=== PATIENT | female | born 1945 | race Caucasian/White ===

== ENCOUNTER → 2016-08-10 | Outpatient (CLI) | payer OTHER ==
[~2016-08-10] MED LIST: AGG PO; ALPH200C2 PEG; ASPI325T39 PO; ASPI81TA21 PO; BUPR200T2 PO; CARV12.5 PO; CARV25TA PO; COEN100C3 PO; CRS20 PO; FERR18TA2 PO; KRIL1CAP18 PO; LISI-725 PO; METH-736 PO; MULT-506 PO; MULT1TAB56 PO; POTA20TA16 PO; SIMV40TA2 PO; SITA100T3 PO; SITA1TAB27 PO; SULF800T23 PO; [UNRECOGNIZED DRUG - OTHER] PO
[2016-08-10 18:35] LABS: URINE APPEARANCE CLEAR (CLEAR); URINE BILIRUBIN NEG (NEG); URINE COLOR YELLOW; URINE NITRITE NEG (NEG); URINE PROTIEN/CREAT RATIO 0.2 (0-0.2); URINE SPECIFIC GRAVITY 1.012 (1.000-1.030); URINE TOTAL PROTEIN 5.1 mg/dl (0-11.9); UROBILINOGEN NEG (NEG); ZZUR CULT IF INDIC CLEAN CATCH NO
[2016-08-10 18:37] LABS: MANUAL MICROSCOPIC REQUIRED? NO; REVIEW REQ? NO
== END | disposition home or self-care (01) ==
LOC: C.LAB1850 15:50
PROVIDERS: ATTEND Internal Medicine Nephrology
DX: R80.9 Proteinuria, unspecified (principal)

== ENCOUNTER → 2016-08-15 | Outpatient (CLI) | payer OTHER ==
--- NOTE | 2016-08-15 08:44 | DIAGNOSTIC IMAGING REPORT ---
RENAL ULTRASOUND CLINICAL HISTORY: Proteinuria. COMPARISON STUDY: CT of the abdomen January 28, 2010. TECHNIQUE: Sonography of the kidneys and the urinary bladder was performed. FINDINGS: This exam is mildly compromised by suboptimal penetration. There is no hydronephrosis. The right kidney measures 9.8 x 6.1 x 5.4 cm and the left measures 10.3 x 5 x 5.9 cm. Renal echogenicity is normal. No renal masses identified by sonography. Both ureteral jets were identified. IMPRESSION: 1. No hydronephrosis. 2. Slight renal cortical thinning. Otherwise, unremarkable sonographic appearance of the kidneys. Electronically signed by: Boyd Godinez M.D. 08/15/2016 8:43 AM Dictated Date/Time: 08/15/2016 8:42 AM
== END | disposition home or self-care (01) ==
LOC: C.ULTR 07:57
PROVIDERS: ATTEND Internal Medicine Nephrology
DX: N18.9 Chronic kidney disease, unspecified (principal); I10 Essential (primary) hypertension; R80.9 Proteinuria, unspecified

== ENCOUNTER 2017-01-12 10:36 | Emergency (ER) | payer OTHER ==
[~2017-01-12] VITALS: Ht 157.5 cm; Wt 100.7 kg
[~2017-01-12 10:36] MED LIST changes: -ALPH200C2 PEG; -ASPI325T39 PO; -CARV12.5 PO; -COEN100C3 PO; -FERR18TA2 PO; -KRIL1CAP18 PO; -METH-736 PO; -MULT1TAB56 PO; -SIMV40TA2 PO; -SITA100T3 PO; -SULF800T23 PO; -[UNRECOGNIZED DRUG - OTHER] PO
[2017-01-12 10:41] VITALS: Ht 157.5 cm; Wt 100.7 kg
[2017-01-12 11:05] VITALS: TEMP 37.7
[2017-01-12] MEDS ORDERED: ASPI325T39 PO (11:23)
[2017-01-12] MEDS ORDERED: LISI-725 PO (11:23)
[2017-01-12] MEDS ORDERED: CARV12.5 PO (11:23)
[2017-01-12] MEDS ORDERED: SITA100T3 PO (11:23)
[2017-01-12] MEDS ORDERED: AGG PO (11:23)
[2017-01-12] MEDS ORDERED: BUPR200T2 PO (11:23)
[2017-01-12] MEDS ORDERED: KRIL1CAP18 PO (11:23)
[2017-01-12] MEDS ORDERED: MULT1TAB56 PO (11:23)
[2017-01-12] MEDS ORDERED: COEN100C3 PO (11:23)
[2017-01-12] MEDS ORDERED: FERR18TA2 PO (11:23)
[2017-01-12] MEDS ORDERED: ALPH200C2 PEG (11:23)
[2017-01-12] MEDS ORDERED: METH-736 PO (11:23)
[2017-01-12] MEDS ORDERED: [UNRECOGNIZED DRUG - OTHER] PO (11:23)
[2017-01-12] MEDS ORDERED: SIMV40TA2 PO (11:23)
--- NOTE | 2017-01-12 11:24 | EMERGENCY ROOM VISIT NOTE ---
History Report prepared by Jaden: Martina Ramírez Under the Supervision of: Dr. Rivas Cheung M.D. First contact with patient: 11:13 Chief Complaint: FEVER Stated Complaint: LEGS ARE WEAK, CAN'T EAT/DRINK, DIARRHEA History of Present Illness The patient is a 71 year old female who presents to the Emergency Room with complaints of a persistent fever for the past several days. The patient states that over the past several days she has noticed urinary frequency, burning with urination and a foul smell to her urine. She states that she has additionally had a decrease in appetite, weakness, and chills for the past two days. The patient states that she had a urinary tract infection several years ago. She additionally reports increased sneezing and a runny nose. The patient denies any cough. She states that she was confused last evening, but denies any current confusion. The patient denies any sore throat. She states that she previously had diarrhea. The patient reports recent urinary incontinence. She denies wearing oxygen at home and denies ever being a smoker. The patient denies any history of lung problems, but reports a history of diabetes. Source of History: patient Onset: several days Position: other (global) Quality: other (fever) Timing: other (persistent) Associated Symptoms: + chills, + diarrhea, + urinary symptoms, + weakness, No sorethroat, No cough Note: Associated Symptoms: decrease in appetite Review of Systems All systems have been listed, reviewed, and are negative other than those previously mentioned. Please see Additional Medical History Sheet. Past Medical & Surgical Medical Problems: (1) Benign hypertension (2) CVA (3) Diabetes mellitus type 2 (4) Diastolic dysfunction (5) Heart disease (6) Kidney stone (7) Morbid obesity (8) Obstructive sleep apnea syndrome Surgical Problems: (1) Hx of cholecystectomy Family History Cancer Diabetes mellitus Heart disease Hypertension Social History Smoking Status: Never Smoker Smokeless Tobacco Use: No Alcohol Use: none Marital Status: Housing Status: lives with significant other Occupation Status: retired Current/Historical Medications Scheduled Alpha-Lipoic Acid (Thioctic Ac (Alpha Lipoic Acid), 200 MG PEG DAILY Aspirin (Aspirin Ec), 325 MG PO BID Bupropion Hcl (Wellbutrin Sr), 200 MG PO BID Carvedilol (Coreg), 12.5 MG PO BID Coenzyme Q10 (Ubidecarenone) (Co Q-10), 100 MG PO DAILY Dipyridamole/Aspirin (Aggrenox 25-200 mg), 1 CAP PO BID Ferrous Fumarate (Iron), 65 MG PO DAILY Krill Oil (Megared Dubberly-3 Krill Oil 500 mg), 325 MG PO DAILY Lisinopril (Zestril), 20 MG PO BID Methylsulfonylmethane (Msm), 1,000 MG PO DAILY Multiple Vitamins W/ Minerals (One Daily Adults 50+), 1 TAB PO DAILY Simvastatin (Zocor), 40 MG PO QPM Sitagliptin Phosphate (Januvia), 100 MG PO DAILY Sulfa/Trimethoprim (Bactrim Ds 800MG/160MG), 1 TAB PO BID [Circulation Booster], 1 DOSE PO TID Allergies Coded Allergies: No Known Allergies (Verified , 01/12/17) Physical Exam Vital Signs Date Time Temp Pulse Resp B/P (MAP) Pulse Ox O2 Delivery O2 Flow Rate FiO2 01/12/17 13:37 95 24 114/50 92 Room Air 01/12/17 12:45 95 19 114/49 93 Room Air 01/12/17 11:05 37.7 98 20 126/59 92 Room Air 01/12/17 11:02 92 01/12/17 10:41 39.2 105 24 146/74 89 Room Air Physical Exam GENERAL: Patient awake, alert, oriented x 3. Patient follows commands. Patient does not appear toxic. Patient is adequately hydrated and well- nourished. SKIN: No erythema, pallor, cyanosis or rash HEENT: Normal head, pupils equal, reactive to light and accommodation. Ears normal. Oral cavity and posterior pharynx appear normal. Neck: Without adenopathy, no neck vein distention. LUNGS: Clear to auscultation. No wheezes, no rales, no rhonchi. HEART: No murmurs. No gallops. No rubs ABDOMEN: Obese, right upper quadrant cholecystectomy scar. No masses, no rebound, no hepatomegaly or splenomegaly. EXTREMITIES: No signs of trauma or infection. NEUROLOGIC: Cranial nerves II-XII within normal limits. No gross motor sensory function deficits. Medical Decision & Procedures ER Provider Diagnostic Interpretation: X ray results are stated below per my interpretation and the radiologist's interpretation. TWO VIEW CHEST CLINICAL HISTORY: Fever.. FINDINGS: PA and lateral chest radiographs are compared to study dated 09/22/2011. The heart is top normal for projection. There is atherosclerotic calcification of the thoracic aorta. There is chronic elevation of the right hemidiaphragm with bibasilar atelectasis. No airspace consolidation or pleural effusion is identified. There is no pneumothorax. The skeletal structures are osteopenic. There are healed left-sided rib fractures. IMPRESSION: No acute cardiopulmonary abnormality. Electronically signed by: Nikolas Dobson M.D. 01/12/2017 12:31 PM Dictated Date/Time: 01/12/2017 12:30 PM Laboratory Results 01/12/17 12:00 Red Blood Count 3.96, Mean Corpuscular Volume 88.1, Mean Corpuscular Hemoglobin 30.6, Mean Corpuscular Hemoglobin Concent 34.7, Mean Platelet Volume 9.1, Neutrophils (%) (Auto) 83.7, Lymphocytes (%) (Auto) 7.7, Monocytes (%) (Auto) 8.3, Eosinophils (%) (Auto) 0.0, Basophils (%) (Auto) 0.1, Neutrophils # (Auto) 8.39, Lymphocytes # (Auto) 0.77, Monocytes # (Auto) 0.83, Eosinophils # (Auto) 0.00, Basophils # (Auto) 0.01 01/12/17 12:00 Test 01/12/17 11:40 01/12/17 12:00 01/12/17 12:05 Urine Color YELLOW Urine Appearance TURBID (CLEAR) Urine pH 5.0 (4.5-7.5) Urine Specific [place] 1.024 (1.000-1.030) Urine Protein 1+ (NEG) Urine Glucose (UA) 3+ (NEG) Urine Ketones NEG (NEG) Urine Occult Blood 2+ (NEG) Urine Nitrite POS (NEG) Urine Bilirubin NEG (NEG) Urine Urobilinogen NEG (NEG) Urine Leukocyte Esterase SMALL (NEG) Urine WBC (Auto) >30 /hpf (0-5) Urine RBC (Auto) 0-4 /hpf (0-4) Urine Hyaline Casts (Auto) 5-10 /lpf (0-5) Urine Epithelial Cells (Auto) >30 /lpf (0-5) Urine Bacteria (Auto) 2+ (NEG) White Blood Count 10.02 K/uL (4.8-10.8) Red Blood Count 3.96 M/uL (4.2-5.4) Hemoglobin 12.1 g/dL (12.0-16.0) Hematocrit 34.9 % (37-47) Mean Corpuscular Volume 88.1 fL (80-100) Mean Corpuscular Hemoglobin 30.6 pg (25-34) Mean Corpuscular Hemoglobin Concent 34.7 g/dl (32-36) Platelet Count 170 K/uL (130-400) Mean Platelet Volume 9.1 fL (7.4-10.4) Neutrophils (%) (Auto) 83.7 % Lymphocytes (%) (Auto) 7.7 % Monocytes (%) (Auto) 8.3 % Eosinophils (%) (Auto) 0.0 % Basophils (%) (Auto) 0.1 % Neutrophils # (Auto) 8.39 K/uL (1.4-6.5) Lymphocytes # (Auto) 0.77 K/uL (1.2-3.4) Monocytes # (Auto) 0.83 K/uL (0.11-0.59) Eosinophils # (Auto) 0.00 K/uL (0-0.5) Basophils # (Auto) 0.01 K/uL (0-0.2) RDW Standard Deviation 43.0 fL (36.4-46.3) RDW Coefficient of Variation 13.3 % (11.5-14.5) Immature Granulocyte % (Auto) 0.2 % Immature Granulocyte # (Auto) 0.02 K/uL (0.00-0.02) Anion Gap 9.0 mmol/L (3-11) Est Creatinine Clear Calc Drug Dose 38.3 ml/min Estimated GFR () 39.5 Estimated GFR (Non- 34.1 BUN/Creatinine Ratio 19.1 (10-20) Calcium Level 8.7 mg/dl (8.5-10.1) Total Bilirubin 0.7 mg/dl (0.2-1) Aspartate Amino Transf (AST/SGOT) 17 U/L (15-37) Alanine Aminotransferase (ALT/SGPT) 19 U/L (12-78) Alkaline Phosphatase 71 U/L (45-117) Troponin I < 0.015 ng/ml (0-0.045) Total Protein 6.6 gm/dl (6.4-8.2) Albumin 3.0 gm/dl (3.4-5.0) Globulin 3.6 gm/dl (2.5-4.0) Albumin/Globulin Ratio 0.8 (0.9-2) Beta-Hydroxybutyric Acid 2.41 mg/dL (0.2-2.81) Lactic Acid Level 1.0 mmol/L (0.4-2.0) Laboratory results as stated above per my review. Medications Administered Medications (Trade) Dose Ordered Sig/Citlali Route Start Time Stop Time Status Last Admin Dose Admin Trimethoprim/ Sulfamethoxazole (Septra Ds 800/ 160MG Tab) 1 tab NOW STAT PO 01/12/17 12:58 01/12/17 13:00 DC 01/12/17 13:14 1 TAB ECG Indication: weakness, other (fever) Rate (beats per minute): 98 Rhythm: normal sinus Findings: no acute ischemic change, no ectopy, other (LVH) ED Course 1113: Past medical records reviewed. The patient was evaluated in room C6. A complete history and physical examination was performed. 1258: Ordered Trimethoprim/Sulfamethoxazole 1 tab PO. 1300: I reevaluated the patient and she is resting comfortably. Her pulse oximetry is around 89-90%. I discussed the exam findings with her and I discussed the treatment plan. She verbalized complete understanding and agreement. She is ready for discharge. Medical Decision Nurses notes reviewed. Medical history sheet reviewed. Differential diagnosis includes but is not limited to: upper respiratory infection, urinary tract infection, sepsis, pyelonephritis. Multiple labs and urinalysis were obtained. Chest x-ray was also reviewed. Please see above results. The patient has a urinary tract infection but no evidence of sepsis or true pyelonephritis. The patient was started on Bactrim here. The patient's pulse oximetry readings were in the very low 90s or upper 80s but she does not feel short of breath. She has no clinical findings to suggest pneumonia. The patient was encouraged to follow-up with her family physician in 10-14 days to have her urinalysis repeated and another evaluation of her lungs. Medication Reconcilliation Current Medication List: was personally reviewed by me Impression Primary Impression: Urinary tract infection Scribe Attestation The scribe's documentation has been prepared under my direction and personally reviewed by me in its entirety. I confirm that the note above accurately reflects all work, treatment, procedures, and medical decision making performed by me. Departure Information Dispostion Home / Self-Care Prescriptions Sulfa/Trimethoprim (Bactrim Ds 800MG/160MG) Tab 1 TAB PO BID, #19 TAB Prov: Rivas Cheung M.D. 01/12/17 Referrals Bozena Lai D.O. (PCP) Forms HOME CARE DOCUMENTATION FORM, IMPORTANT VISIT INFORMATION Patient Instructions My [facility] Additional Instructions One Bactrim twice a day until the prescription has been completed. Drink extra fluids. Follow-up with your family physician within the next 10-14 days. Return here sooner if you become short of breath or have persistent fever.
[2017-01-12 11:53] LABS: URINE APPEARANCE TURBID (CLEAR); URINE BILIRUBIN NEG (NEG); URINE COLOR YELLOW; URINE EPITHELIAL CELL AUTO >30 /lpf (0-5); URINE NITRITE POS (NEG); URINE SPECIFIC GRAVITY 1.024 (1.000-1.030); UROBILINOGEN NEG (NEG); ZZURINE CULT IF INDIC CATH YES
[2017-01-12 11:54] LABS: MANUAL MICROSCOPIC REQUIRED? NO; REVIEW REQ? NO
[2017-01-12 12:17] LABS: BASO % 0.1 %; BASO ABS # 0.01 K/uL (0-0.2); COMPLETE YES; HEMATOCRIT 34.9 % (37-47); IG% 0.2 %; LYMPH % 7.7 %; LYMPH ABS # 0.77 K/uL (1.2-3.4); MEAN CELL VOLUME 88.1 fL (80-100); MEAN CORPUSCULAR HEMOGLOBIN 30.6 pg (25-34); MEAN CORPUSCULAR HGB CONC 34.7 g/dl (32-36); MEAN PLATELET VOLUME 9.1 fL (7.4-10.4); MONO % 8.3 %; NEUT % 83.7 %; PLATELET COUNT 170 K/uL (130-400); RED BLOOD COUNT 3.96 M/uL (4.2-5.4); WHITE BLOOD COUNT 10.02 K/uL (4.8-10.8)
--- NOTE | 2017-01-12 12:33 | DIAGNOSTIC IMAGING REPORT ---
TWO VIEW CHEST CLINICAL HISTORY: Fever.. FINDINGS: PA and lateral chest radiographs are compared to study dated 09/22/2011. The heart is top normal for projection. There is atherosclerotic calcification of the thoracic aorta. There is chronic elevation of the right hemidiaphragm with bibasilar atelectasis. No airspace consolidation or pleural effusion is identified. There is no pneumothorax. The skeletal structures are osteopenic. There are healed left-sided rib fractures. IMPRESSION: No acute cardiopulmonary abnormality. Electronically signed by: Nikolas Dobson M.D. 01/12/2017 12:31 PM Dictated Date/Time: 01/12/2017 12:30 PM
[2017-01-12 12:37] LABS: ALT/SGPT 19 U/L (12-78); AST/SGOT 17 U/L (15-37); BLOOD UREA NITROGEN 29 mg/dl (7-18); BUN/CREATININE RATIO 19.1 (10-20); CALCIUM 8.7 mg/dl (8.5-10.1); CARBON DIOXIDE 25 mmol/L (21-32); CHLORIDE 93 mmol/L (98-107); CREATININE 1.54 mg/dl (0.60-1.20); GLUCOSE 330 mg/dl (70-99); SODIUM 127 mmol/L (136-145)
[2017-01-12 12:51] LABS: ALB/GLOB RATIO 0.8 (0.9-2); ALKALINE PHOSPHATASE 71 U/L (45-117)
[2017-01-12 12:58] LABS: BETA-HYDROXYBUTYRATE 2.41 mg/dL (0.2-2.81)
[2017-01-12] MEDS ORDERED: SULFAMETHOXAZOLE/TRIMETHOPRIM DS 800/160MG TAB PO STA (12:58)
[2017-01-12] MEDS ORDERED: SULF800T23 PO (13:09)
[2017-01-12 13:37] VITALS: BP 114/50; PULSE 95; O2SAT 92
== END 2017-01-12 13:47 | disposition home or self-care (01) ==
LOC: C.EDB 10:38 → C.EDC 13:47
DX: N39.0 Urinary tract infection, site not specified (principal); R50.9 Fever, unspecified; R19.7 Diarrhea, unspecified; R53.1 Weakness; J98.11 Atelectasis; I10 Essential (primary) hypertension; E11.9 Type 2 diabetes mellitus without complications; G47.33 Obstructive sleep apnea (adult) (pediatric)

== ENCOUNTER 2021-10-15 06:37 | Inpatient (IN) ==
[2021-10-15] MEDS ORDERED: fentaNYL citrate 100 MCG/2 ML VIAL IV STA (06:45)
--- NOTE | 2021-10-15 06:53 | Emergency Department Note ---
Impression & Plan Fall, Closed trimalleolar fracture of ankle, Closed fracture dislocation of right ankle ED Provider Note Provider: He Ken MD DATE OF SERVICE: 10/15/2021 CHIEF COMPLAINT: Fall, ankle pain HISTORY OF PRESENT ILLNESS: Patient is a 76-year-old female history of CVA, hypertension, and type 2 diabetes presenting here today after a fall last night. Patient states is getting up to use the bathroom around midnight when she slipped and tripped on one of her dogs toys on the floor and fell to the ground. Denies striking her head or loss of consciousness. Denies any headache, dizziness, or visual change. Denies any neck pain. Denies any chest pain or shortness of breath. Denies any abdominal pain. Denies injury to the upper extremities or left lower extremity but states she tripped and landed and hurt her right ankle. Was unable to get up for this The floor till her found her around 5-5 30 this morning. Patient was unable to ambulate due to pain of the right ankle which is deformed per EMS. She has intact sensation and good pulse in the right foot by the report. Patient denies a history of surgery here. She denies significant pain at rest but with any movement or touch she has pain of the right ankle. Denies right knee pain. Endorses aspirin use REVIEW OF SYSTEMS: A total of 10 review of systems was obtained and negative except as stated above in the HPI. PAST MEDICAL HISTORY: As noted above MEDICATIONS: Reviewed home medication SOCIAL HISTORY: Retired, lives at home with PHYSICAL EXAM: GENERAL: alert and oriented in no acute distress on stretcher Head: normocephalic and atraumatic EYES: No injection, discharge or icterus. PERRL NECK: Trachea midline. Supple without midline posterior neck tenderness. ENT: Mucous membranes pink and moist. LUNGS: Airway patent. No retractions. Breath sounds clear with good air entry bilaterally. HEART: Regular rate and rhythm. No chest wall tenderness ABDOMEN: Soft and non-tender, without guarding or rebound. SKIN: Acyanotic, warm, dry EXTREMITIES: Without swelling, tenderness or deformity EXCEPT for lateral deformity to the right foot at the level of the ankle with some contusion and erythema of the medial ankle and malleolus with tenderness here. 2+ right DP pulse and intact sensation in front of the toes. No significant fibular or proximal right leg tenderness. No joint line tenderness of the right knee. No significant tenderness the arch of the right foot. Soft compartments of the right calf. There is a small area of abrasion on the right briones without open laceration. NEUROLOGICAL: No aphasia. No facial droop or slurred speech. Normal strength and tone in the extremities except for limitations due to pain around the right ankle.. Sensation to gross touch normal. GCS 15. EK bpm sinus tachycardia without PVC or PAC. No acute ST segment elevation or depression with a QTC of 464. ED procedure, closed reduction right ankle: Performed by myself with the patient's verbal consent given significant tenting to the skin. Discussed with the patient risk and benefit including reduced pain and less likelihood of conversion to an open wound with decreased tension on the skin after reduction. Is monitoring for vascular or nerve issues afterwards. Given some IV fentanyl for pain control. Postreduction x-rays completed after uncomplicated reduction with improvement of alignment. Pain improved. Splinting: A right lower extremity posterior short splint with stirrups was placed under my direction. Neurovascular intact before and after placement. Patient's laboratory studies and imaging reviewed. Differential includes Fracture, subluxation, dislocation, contusion, ligamentous injury, neurovascular, compartment syndrome, rhabdomyolysis, as well as other pathologies. IMPRESSION/MEDICAL DECISION MAKING: Patient denies striking her head and denies any other neurological symptoms or head complaint. Patient neck screening is negative. Doubt acute cervical spine fracture or injury of significance and doubt acute head injury or need for head or neck imaging at this time. Patient has isolated complaints in the right lower extremity prickly the right ankle. No evidence of compartment syndrome. Some evidence of erythema and bruising particular the medial right ankle with likely fracture dislocation present for 5-6 hours since the fall before she presents here. CK was checked and basic labs. Given some fentanyl and x-ray obtained to evaluate for fracture or dislocation of the ankle. Doubt significant injury to the knee or foot otherwise based on clinical exam. Neurovascularly intact in the right foot no evidence of open wound at this time. Patient does not report any syncopal components to her fall which are described mechanical and do not believe this is cardiac in nature. Bedside x-ray obtained with obvious fracture dislocation. Discussed with the patient proceeded with reduction at bedside with some fentanyl for pain control. Discussed with her risks and benefits including concern that further strain on the tissue at this time with tenting could cause necrosis or opening of the wound and significant increase infection risk. She was agreeable. Much improved alignment still with some slight widening of the mortise and the patient's foot does appear still slightly subluxed but much improved and with the fibular elements do not know that further improved alignment to be obtained. Discussed with orthopedics Dr. Feliz Post reduction. Chemistries and creatinine kinase not significantly abnormal and doubt rha bdomyolysis. In discussion with orthopedics they plan to evaluate for possible surgical repair tomorrow. Medicine will evaluate for observation tonight. Basic preop EKG and chest x-ray and COVID test obtained. Patient and updated at bedside. DIAGNOSIS: Fall, right ankle fracture dislocation DISPOSITION: Hospitalist will evaluate Patient was agreeable with this plan. Past Med/Surg History Social History Smoking Status: Never smoker Hx Alcohol Use: No Hx Substance Use: No Preferred Language: Somali Communication Ability: Effective [employer] Required: No Beliefs That Will Affect Care: None Current Living Situation: Spouse Other Information That Helps Us Care for You: No Feels Safe at Home: Yes Safety Concerns: Feels Safe At This Time Assistive Devices: Glasses Allergies Allergies Allergy/AdvReac Type Severity Reaction Status Date / Time No Known Allergies Allergy Verified 01/12/17 11:12 Home Meds Home Medications Medication Instructions Recorded Confirmed ALPHA-LIPOIC ACID (THIOCTIC AC 200 mg PEG DAILY ##0 01/12/17 (ALPHA LIPOIC ACID) ASPIRIN (ASPIRIN EC) 325 mg PO BID ##0 01/12/17 BUPROPION HCL (WELLBUTRIN SR) 200 mg PO BID ##0 01/12/17 CARVEDILOL (COREG) 12.5 mg PO BID ##0 01/12/17 CIRCULATION BOOSTER 1 dose PO TID ##0 01/12/17 COENZYME Q10 (UBIDECARENONE) (CO 100 mg PO DAILY ##0 01/12/17 Q-10) Dipyridamole/Aspirin (Aggrenox 1 cap PO BID ##0 01/12/17 25-200 mg) FERROUS FUMARATE (IRON) 65 mg PO DAILY ##0 01/12/17 Krill Oil (Megared Holden-3 Krill 325 mg PO DAILY ##0 01/12/17 Oil 500 mg) Lisinopril (Zestril) 20 mg PO BID ##0 01/12/17 METHYLSULFONYLMETHANE (MSM) 1,000 mg PO DAILY ##0 01/12/17 MULTIPLE VITAMINS W/ MINERALS (ONE 1 tab PO DAILY ##0 01/12/17 DAILY ADULTS 50+) SITAGLIPTIN PHOSPHATE (Januvia) 100 mg PO DAILY ##0 01/12/17 Simvastatin (Zocor) 40 mg PO QPM ##0 01/12/17 Results & Data (ED) Vital Signs Vital Signs - 24 hr 10/15/21 06:42 10/15/21 06:45 10/15/21 07:04 Pulse Rate 82 67 Pulse Rate from SpO2 Sensor Respiratory Rate 20 22 Respiratory Effort / Characteristics Non-Labored Non-Labored Respiratory Depth Normal Normal Blood Pressure 183/95 H Blood Pressure Mean 124 Pulse Oximetry 95 Oxygen Delivery Method Room Air Sepsis Recent Fever Within 48 Hours No Sepsis New/Unexplained Change in Mental Status No Sepsis Action Taken by Nursing No Action Required 10/15/21 07:30 10/15/21 08:00 10/15/21 08:30 Pulse Rate 93 H 89 91 H Pulse Rate from SpO2 Sensor 96 H 88 90 Respiratory Rate 21 18 22 Respiratory Effort / Characteristics Respiratory Depth Blood Pressure Blood Pressure Mean Pulse Oximetry 95 96 98 Oxygen Delivery Method Sepsis Recent Fever Within 48 Hours Sepsis New/Unexplained Change in Mental Status Sepsis Action Taken by Nursing 10/15/21 09:00 10/15/21 09:30 10/15/21 09:38 Pulse Rate 93 H 94 H 97 H Pulse Rate from SpO2 Sensor 93 H 95 H Respiratory Rate 19 21 23 Respiratory Effort / Characteristics Respiratory Depth Blood Pressure Blood Pressure Mean Pulse Oximetry 98 92 Oxygen Delivery Method Sepsis Recent Fever Within 48 Hours Sepsis New/Unexplained Change in Mental Status Sepsis Action Taken by Nursing 10/15/21 09:38 Pulse Rate Pulse Rate from SpO2 Sensor Respiratory Rate Respiratory Effort / Characteristics Respiratory Depth Blood Pressure 163/90 H Blood Pressure Mean 114 Pulse Oximetry Oxygen Delivery Method Sepsis Recent Fever Within 48 Hours Sepsis New/Unexplained Change in Mental Status Sepsis Action Taken by Nursing Laboratory Data Result diagrams: 10/15/21 07:15 10/15/21 07:15 Lab Results 10/15/21 10/15/21 10/15/21 Range/Units 07:15 07:15 07:15 WBC 14.92 H (4.8-10.8) K/ul RBC 4.79 (3.93-5.22) M/uL Hgb 14.3 (12.0-16.0) g/dl Hct 44.1 (34.1-44.9) % MCV 92.1 (80.0-100.0) fL MCH 29.9 (25.0-34.0) pg MCHC 32.4 (32.0-36.0) g/dL RDW Std Deviation 44.8 (36.4-46.3) fL RDW Coeff of Dodie 13.3 (11.5-14.5) % Plt Count 268 (130-400) K/uL MPV 9.6 (9.4-12.3) fL Immature Gran % (Auto) 0.3 % Neut % (Auto) 85.4 % Lymph % (Auto) 7.2 % Harnett % (Auto) 6.0 % Eos % (Auto) 0.6 % Baso % (Auto) 0.5 % Neut # (Auto) 12.74 H (1.4-6.5) K/uL Lymph # (Auto) 1.07 L (1.2-3.4) K/uL Harnett # (Auto) 0.89 H (0.24-0.82) K/uL Eos # (Auto) 0.09 (0-0.50) K/uL Baso # (Auto) 0.08 (0-0.2) K/uL Immature Gran # (Auto) 0.05 H (0.00-0.02) K/uL PT 10.1 (9.0-12.0) Seconds INR 0.9 (0.9-1.1) Sodium 139 (136-145) mmol/L Potassium 4.2 (3.5-5.1) mmol/L Chloride 106 (98-107) mmol/L Carbon Dioxide 24 (21-32) mmol/L Anion Gap 9 (3-11) BUN 27 H (6-23) mg/dl Creatinine 1.25 H (0.6-1.2) mg/dl Est Cr Clr Drug Dosing 44.6 ml/min Est GFR ( Amer) 49.1 ml/min Est GFR (Non-Af Amer) 42.3 ml/min BUN/Creatinine Ratio 21.6 H (10-20) Glucose 289 H (70-99(Fasting)) mg/dl Calcium 9.7 (8.5-10.1) mg/dl Total Creatine Kinase 16 L (26-192) U/L SARS-CoV-2, RNA, NAAT (NEGATIVE) 10/15/21 Range/Units 09:45 WBC (4.8-10.8) K/ul RBC (3.93-5.22) M/uL Hgb (12.0-16.0) g/dl Hct (34.1-44.9) % MCV (80.0-100.0) fL MCH (25.0-34.0) pg MCHC (32.0-36.0) g/dL RDW Std Deviation (36.4-46.3) fL RDW Coeff of Dodie (11.5-14.5) % Plt Count (130-400) K/uL MPV (9.4-12.3) fL Immature Gran % (Auto) % Neut % (Auto) % Lymph % (Auto) % Harnett % (Auto) % Eos % (Auto) % Baso % (Auto) % Neut # (Auto) (1.4-6.5) K/uL Lymph # (Auto) (1.2-3.4) K/uL Harnett # (Auto) (0.24-0.82) K/uL Eos # (Auto) (0-0.50) K/uL Baso # (Auto) (0-0.2) K/uL Immature Gran # (Auto) (0.00-0.02) K/uL PT (9.0-12.0) Seconds INR (0.9-1.1) Sodium (136-145) mmol/L Potassium (3.5-5.1) mmol/L Chloride (98-107) mmol/L Carbon Dioxide (21-32) mmol/L Anion Gap (3-11) BUN (6-23) mg/dl Creatinine (0.6-1.2) mg/dl Est Cr Clr Drug Dosing ml/min Est GFR ( Amer) ml/min Est GFR (Non-Af Amer) ml/min BUN/Creatinine Ratio (10-20) Glucose (70-99(Fasting)) mg/dl Calcium (8.5-10.1) mg/dl Total Creatine Kinase (26-192) U/L SARS-CoV-2, RNA, NAAT NEGATIVE (NEGATIVE) Administered Medications Hydromorphone HCl (Hydromorphone Inj 0.5 Mg/0.5 Ml Syr) 0.5 mg IV Q6H PRN PRN Reason: Pain Stop: 10/29/21 10:59 Last Admin: 10/15/21 12:04 Dose: 0.5 mg Documented By: EVA Insulin Aspart (Insulin Aspart Per Unit) 0 units SC ACHS SANDRA Stop: 11/14/21 11:29 Last Admin: 10/15/21 12:02 Dose: 5 units Documented By: EVA Co-signed By: NA Discontinued Medications Fentanyl Citrate (Fentanyl Citrate 100 Mcg/2 Ml Vial) 100 mcg IV NOW STA Stop: 10/15/21 06:46 Last Admin: 10/15/21 07:14 Dose: 100 mcg Documented By: STEPHANIE Imaging Data Radiologist's Impression: Ankle X-Ray 10/15/21 06:45 SINGLE VIEW RIGHT ANKLE CLINICAL HISTORY: Right ankle injury and deformity. FINDINGS: An AP view of right ankle is compared to study dated 02/05/2007. The skeletal structures are osteopenic. There is a comminuted, displaced, and angulated fracture through the distal shaft of the fibula. There is also a displaced fracture through the base of the medial malleolus. There is lateral dislocation of the talus at the tibiotalar articulation. The talus is displaced by approximately 2 cm. Overlying soft tissue edema is noted. No additional fracture is clearly seen on this single projection. IMPRESSION: Fracture/dislocation of the ankle joint as above. Electronically signed by: Nikolas Dobson M.D. 10/15/2021 8:33 AM Ankle X-Ray 10/15/21 06:45 RIGHT TIBIA AND FIBULA 2 VIEWS; RIGHT ANKLE 2 VIEWS CLINICAL HISTORY: Postreduction examination. FINDINGS: Portable AP and crosstable lateral views of the right tibia and fibula with AP and crosstable lateral views of the right ankle are obtained. Comparison is made to study performed earlier the same day 10/15/2021. The examination is performed through a splint, obscuring fine bony detail. Significant edema is present around the ankle. Again seen is a trimalleolar fracture of the ankle joint. There is a displaced fracture through the base of the medial malleolus. The medial malleolus is distracted laterally by approximately 1.8 cm. There is a displaced vertically oriented fracture through the posterior tibial plafond comment with a comminuted and mildly angulated fracture of the distal fibular shaft. There is lateral displacement of the talus by approximately 1 cm, as well as dorsal displacement of the talus by approximately 1.2 cm. There is widening of the anterior joint space. Joint effusion is noted. Mild valgus angulation is noted at the tibiotalar joint. Question an impaction injury at the talar dome. The proximal tibia and fibula appear intact. There is chronic posttraumatic deformity of the proximal fibular shaft. Degenerative change and joint effusion is noted in the right knee. IMPRESSION: 1. Trimalleolar fracture/dislocation at the ankle joint as above. Alignment has improved status post external fixation. 2. The proximal tibia and fibula appear intact. 3. Question an impaction injury at the talar dome. Electronically signed by: Nikolas Dobson M.D. 10/15/2021 8:40 AM Tibia/Fibula X-Ray 10/15/21 07:24 RIGHT TIBIA AND FIBULA 2 VIEWS; RIGHT ANKLE 2 VIEWS CLINICAL HISTORY: Postreduction examination. FINDINGS: Portable AP and crosstable lateral views of the right tibia and fibula with AP and crosstable lateral views of the right ankle are obtained. Comparison is made to study performed earlier the same day 10/15/2021. The examination is performed through a splint, obscuring fine bony detail. Significant edema is present around the ankle. Again seen is a trimalleolar fracture of the ankle joint. There is a displaced fracture through the base of the medial malleolus. The medial malleolus is distracted laterally by approximately 1.8 cm. There is a displaced vertically oriented fracture through the posterior tibial plafond comment with a comminuted and mildly angulated fracture of the distal fibular shaft. There is lateral displacement of the talus by approximately 1 cm, as well as dorsal displacement of the talus by approximately 1.2 cm. There is widening o f the anterior joint space. Joint effusion is noted. Mild valgus angulation is noted at the tibiotalar joint. Question an impaction injury at the talar dome. The proximal tibia and fibula appear intact. There is chronic posttraumatic deformity of the proximal fibular shaft. Degenerative change and joint effusion is noted in the right knee. IMPRESSION: 1. Trimalleolar fracture/dislocation at the ankle joint as above. Alignment has improved status post external fixation. 2. The proximal tibia and fibula appear intact. 3. Question an impaction injury at the talar dome. Electronically signed by: Nikolas Dobson M.D. 10/15/2021 8:40 AM Chest X-Ray 10/15/21 09:22 SINGLE VIEW CHEST CLINICAL HISTORY: Preoperative examination. Ankle fractures. FINDINGS: An AP, portable, upright chest radiograph is compared to study dated 09/22/2011. The heart is mildly enlarged noting atherosclerotic calcification of the thoracic ureter. There is mild pulmonary vascular congestion. Atelectasis is noted at the lung bases. The lungs and pleural spaces are otherwise clear. No pneumothorax is seen. The skeletal structures are osteopenic. There are healed left-sided rib fractures. IMPRESSION: 1. Cardiomegaly with pulmonary vascular congestion. 2. No airspace consolidation or large pleural effusion is identified. ACT 112: Negative or not required by law. Electronically signed by: Nikolas Dobson M.D. 10/15/2021 9:39 AM Discharge Plan Visit Data Chief Complaint: Fall ED Provider: He Ken Discharge Problem: Fall, Closed trimalleolar fracture of ankle, Closed fracture dislocation of right ankle Patient Disposition: Admitted As Inpatient Discharge Instructions Interventions: ED Discharge Assessment Last Done: 10/15/21 13:22 : Fall Qualifiers: Encounter type: initial encounter Qualified Code(s): W19.XXXA - Unspecified fall, initial encounter Closed trimalleolar fracture of ankle Qualifiers: Encounter type: initial encounter Laterality: right Qualified Code(s): S82.851A - Displaced trimalleolar fracture of right lower leg, initial encounter for closed fracture Closed fracture dislocation of right ankle Qualifiers: Encounter type: initial encounter Qualified Code(s): S82.891A - Other fracture of right lower leg, initial encounter for closed fracture
[2021-10-15 07:30] LABS: Basophils # (auto) 0.08 K/uL (0-0.2); Basophils % (auto) 0.5 %; Eosinophils # (auto) 0.09 K/uL (0-0.50); Eosinophils % (auto) 0.6 %; Hematocrit (blood only) 44.1 % (34.1-44.9); Hemoglobin 14.3 g/dl (12.0-16.0); Immature Granulocytes # (auto) 0.05 K/uL (0.00-0.02); Immature Granulocytes % (auto) 0.3 %; Lymphocytes # (auto) 1.07 K/uL (1.2-3.4); Lymphocytes % (auto) 7.2 %; Mean Corpuscular Hemoglobin 29.9 pg (25.0-34.0); Mean Corpuscular Hgb Conc 32.4 g/dL (32.0-36.0); Mean Corpuscular Volume 92.1 fL (80.0-100.0); Mean Platelet Volume 9.6 fL (9.4-12.3); Monocytes # (auto) 0.89 K/uL (0.24-0.82); Neutrophils # (auto) 12.74 K/uL (1.4-6.5); Neutrophils % (auto) 85.4 %; Platelet Count 268 K/uL (130-400); RDW Coefficient of Variation 13.3 % (11.5-14.5); RDW Standard Deviation 44.8 fL (36.4-46.3); Red Blood Count 4.79 M/uL (3.93-5.22); White Blood Count 14.92 K/ul (4.8-10.8)
[2021-10-15 07:55] LABS: Calcium 9.7 mg/dl (8.5-10.1); Potassium 4.2 mmol/L (3.5-5.1)
[2021-10-15 08:34] LABS: Creatinine Clr Calc Pharmacy 44.6 ml/min; Est GFR (African American) 49.1 ml/min; Est GFR (Non-African American) 42.3 ml/min
--- NOTE | 2021-10-15 08:36 | XRay Report ---
SINGLE VIEW RIGHT ANKLE CLINICAL HISTORY: Right ankle injury and deformity. FINDINGS: An AP view of right ankle is compared to study dated 02/05/2007. The skeletal structures ar e osteopenic. There is a comminuted, displaced, and angulated fracture through the distal shaft of th e fibula. There is also a displaced fracture through the base of the medial malleolus. There is later al dislocation of the talus at the tibiotalar articulation. The talus is displaced by approximately 2 cm. Overlying soft tissue edema is noted. No additional fracture is clearly seen on this single proj ection. IMPRESSION: Fracture/dislocation of the ankle joint as above. Electronically signed by: Nikolas Dobson M.D. 10/15/2021 8:33 AM
--- NOTE | 2021-10-15 08:42 | XRay Report ---
RIGHT TIBIA AND FIBULA 2 VIEWS; RIGHT ANKLE 2 VIEWS CLINICAL HISTORY: Postreduction examination. FINDINGS: Portable AP and crosstable lateral views of the right tibia and fibula with AP and crosstab le lateral views of the right ankle are obtained. Comparison is made to study performed earlier the 10/15/2021. The examination is performed through a splint, obscuring fine bony detail. Signifi cant edema is present around the ankle. Again seen is a trimalleolar fracture of the ankle joint. The re is a displaced fracture through the base of the medial malleolus. The medial malleolus is distract ed laterally by approximately 1.8 cm. There is a displaced vertically oriented fracture through the p osterior tibial plafond comment with a comminuted and mildly angulated fracture of the distal fibular shaft. There is lateral displacement of the talus by approximately 1 cm, as well as dorsal displacem ent of the talus by approximately 1.2 cm. There is widening of the anterior joint space. Joint effusi on is noted. Mild valgus angulation is noted at the tibiotalar joint. Question an impaction injury at the talar dome. The proximal tibia and fibula appear intact. There is chronic posttraumatic deformit y of the proximal fibular shaft. Degenerative change and joint effusion is noted in the right knee. IMPRESSION: 1. Trimalleolar fracture/dislocation at the ankle joint as above. Alignment has improved status post external fixation. 2. The proximal tibia and fibula appear intact. 3. Question an impaction injury at the talar dome. Electronically signed by: Nikolas Dobson M.D. 10/15/2021 8:40 AM
[2021-10-15 08:55] LABS: BUN Creatinine Ratio 21.6 (10-20)
--- NOTE | 2021-10-15 09:40 | XRay Report ---
SINGLE VIEW CHEST CLINICAL HISTORY: Preoperative examination. Ankle fractures. FINDINGS: An AP, portable, upright chest radiograph is compared to study dated 09/22/2011. The heart i s mildly enlarged noting atherosclerotic calcification of the thoracic ureter. There is mild pulmonar y vascular congestion. Atelectasis is noted at the lung bases. The lungs and pleural spaces are other edge clear. No pneumothorax is seen. The skeletal structures are osteopenic. There are healed left-si ded rib fractures. IMPRESSION: 1. Cardiomegaly with pulmonary vascular congestion. 2. No airspace consolidation or large pleural effusion is identified. ACT 112: Negative or not required by law. Electronically signed by: Nikolas Dobson M.D. 10/15/2021 9:39 AM
--- NOTE | 2021-10-15 10:34 | History & Physical Report ---
Date of Service October 15, 2021 Assessment & Plan (1) Fall: Plan: Mechanical fall without any loss of consciousness (2) Closed trimalleolar fracture of ankle: Plan: Status post fall with closed trimalleolar fracture of right ankle Reduction was done in the emergency room Orthopedic surgeon has been consulted Possible surgery tomorrow There is no contraindication for proposed surgery Pain medications will be provided (3) History of cerebrovascular accident: Plan: No sequelae Has been on aspirin which is on hold now (4) Type 2 diabetes mellitus: Plan: On oral medications Will hold oral medicine for now and put her on sliding scale insulin coverage (5) Hypertension: Plan: Blood pressure remains on the upper side We will continue current medications and monitor (6) Chronic kidney disease (CKD): Plan: Chronic kidney disease stage III Chest x-ray showed mild congestion Will not give any intravenous fluid Monitor PRP (7) Major depressive disorder: Plan: No acute issues (8) Hyperlipidemia: Plan: Continue statin DVT prophylaxis SCDs for now CODE STATUS Full History of Present Illness Chief Complaint: Mechanical fall with right ankle fracture Primary Care Provider: Indira Argueta DO She is a 76-year-old obese female with significant past medical history of type 2 diabetes with complication, hypertension, history of CVA, hyperlipidemia, major depressive disorder, primary osteoarthritis and chronic kidney disease a stage III yea apparently has had a fall early this morning when she was trying to go to bathroom and tripped. She did not have any warning symptoms before the fall and following fall she could not manage to get up due to severe right ankle pain. She denies any loss of consciousness and did not have any significant trauma to the other parts of the body including head. She has been otherwise ambulant without any significant symptoms before the fall. She has noted to have right trimalleolar fracture without any significant lab abnormalities. Ortho was consulted and she will have possible surgery tomorrow as per the Ortho service. Allergies Allergy/AdvReac Type Severity Reaction Status Date / Time No Known Allergies Allergy Verified 01/12/17 11:12 Home Medications Medication Instructions Recorded Confirmed Type ALPHA-LIPOIC ACID (THIOCTIC AC 200 mg PEG DAILY ##0 01/12/17 History (ALPHA LIPOIC ACID) ASPIRIN (ASPIRIN EC) 325 mg PO BID ##0 01/12/17 History BUPROPION HCL (WELLBUTRIN SR) 200 mg PO BID ##0 01/12/17 History CARVEDILOL (COREG) 12.5 mg PO BID ##0 01/12/17 History CIRCULATION BOOSTER 1 dose PO TID ##0 01/12/17 History COENZYME Q10 (UBIDECARENONE) (CO 100 mg PO DAILY ##0 01/12/17 History Q-10) Dipyridamole/Aspirin (Aggrenox 1 cap PO BID ##0 01/12/17 History 25-200 mg) FERROUS FUMARATE (IRON) 65 mg PO DAILY ##0 01/12/17 History Krill Oil (Megared [place]-3 Krill 325 mg PO DAILY ##0 01/12/17 History Oil 500 mg) Lisinopril (Zestril) 20 mg PO BID ##0 01/12/17 History METHYLSULFONYLMETHANE (MSM) 1,000 mg PO DAILY ##0 01/12/17 History MULTIPLE VITAMINS W/ MINERALS (ONE 1 tab PO DAILY ##0 01/12/17 History DAILY ADULTS 50+) SITAGLIPTIN PHOSPHATE (Januvia) 100 mg PO DAILY ##0 01/12/17 History Simvastatin (Zocor) 40 mg PO QPM ##0 01/12/17 History Past Med/Surg History Social History Smoking Status: Never smoker Feels Safe at Home: Yes Review of Systems Review of Systems: All systems reviewed and are unremarkable except as noted below Musculoskeletal: Right ankle pain Physical Exam Physical Exam: Lying in bed comfortably Constitutional: well developed, well nourished, + ill appearing and + obese Eyes: PERRL, conjunctivae normal, anicteric sclerae ENMT: external ear and nose normal, oropharynx normal Neck: trachea midline, no thyromegaly Respiratory: no respiratory distress Auscultation: + diminished lung sounds (At the bases); no crackles Cardiovascular: Rate/Rhythm: regular rate and regular rhythm; not tachycardic Heart Sounds: normal S1, normal S2 and + murmur (1/6 ESM over precordium) Extremities: no edema (Right leg is bandaged) Gastrointestinal (Abdomen): Inspection/Auscultation: normal bowel sounds; abdomen not distended Percussion/Palpation: abdomen soft; abdomen nontender Musculoskeletal: Ankle: + ankle abnormal to inspection (Right ankle is bandaged) Neurologic: Alert, awake and oriented x3. No focal sensory or no motor deficit Psychiatric: A+Ox3, euthymic affect Lymphatic: no cervical or axillary lymphadenopathy Results & Data Results & Data ([facility]) Vital Signs (Past 12 Hours) Vital Signs Pulse Resp BP Pulse Ox O2 Del Method 10/15/21 09:38 163/90 H 10/15/21 09:38 97 H 23 10/15/21 09:30 94 H 21 92 10/15/21 09:00 93 H 19 98 10/15/21 08:30 91 H 22 98 10/15/21 08:00 89 18 96 10/15/21 07:30 93 H 21 95 10/15/21 07:04 67 22 10/15/21 06:42 82 20 183/95 H 95 Room Air Laboratory Results Short CBC 10/15/21 Range/Units 07:15 WBC 14.92 H (4.8-10.8) K/ul Hgb 14.3 (12.0-16.0) g/dl Hct 44.1 (34.1-44.9) % Plt Count 268 (130-400) K/uL BMP 10/15/21 07:15 Sodium 139 Potassium 4.2 Chloride 106 Carbon Dioxide 24 BUN 27 H Creatinine 1.25 H Glucose 289 H Calcium 9.7 Cardiac Enzymes 10/15/21 Range/Units 07:15 Total Creatine Kinase 16 L (26-192) U/L (1) Fall Encounter type: initial encounter Qualified Code(s): W19.XXXA - Unspecified f all, initial encounter (2) Closed trimalleolar fracture of ankle Encounter type: initial encounter Laterality: right Qualified Code(s): S82.851A - Displaced trimalleolar fracture of right lower leg, initial encounter for closed fracture
[2021-10-15] MEDS ORDERED: GLUCOSE 40% GEL 15 GM TUBE PO PRN (11:00)
[2021-10-15] MEDS ORDERED: CARBOHYDRATES FOR HYPOGLYCEMIA PO PRN (11:00)
[2021-10-15] MEDS ORDERED: GLUCOSE 10 TAB/TUBE PO PRN (11:00)
[2021-10-15] MEDS ORDERED: DEXTROSE 50% 50 ML SYRINGE IV PRN (11:00)
[2021-10-15] MEDS ORDERED: HYDROmorphone INJ 0.5 MG/0.5 ML SYR IV PRN (11:00)
[2021-10-15] MEDS ORDERED: GLUCAGON FOR INJ 1 MG VIAL IM PRN (11:00)
[2021-10-15] MEDS: INSULIN ASPART PER UNIT SC SCH ×3 (12:02→21:26)
[2021-10-15 13:42] LABS: INR 0.9 (0.9-1.1); Prothrombin Time 10.1 Seconds (9.0-12.0)
[2021-10-15] MEDS ORDERED: NYSTATIN POWDER 15GM BTL EXT PRN (16:52)
[2021-10-15] MEDS: HYDROmorphone INJ 0.5 MG/0.5 ML SYR IV PRN (17:22)
--- NOTE | 2021-10-15 17:44 | Anesthesiology Consultation ---
Date of Service October 15, 2021 Assessment & Plan (1) Encounter for pre-operative examination: Chart Review Chart Review: Acceptable Risk for Surgery History Surgery Operation Date: 10/15/21 08:00 Proposed Procedures p Open Reduction Internal Fixation Ankle(Right) - Rubén Feliz MD Operation Date: 10/16/21 08:00 Proposed Procedures p Open Reduction Internal Fixation Ankle(Right) - Rubén Feliz MD Height/Weight Height: 5 ft 3 in Weight: 102.1 kg Allergies Allergy/AdvReac Type Severity Reaction Status Date / Time No Known Allergies Allergy Verified 01/12/17 11:12 Medications Home Medications Medication Instructions Recorded Confirmed Last Taken ALPHA-LIPOIC ACID (THIOCTIC AC 200 mg PEG DAILY ##0 01/12/17 Unknown (ALPHA LIPOIC ACID) ASPIRIN (ASPIRIN EC) 325 mg PO BID ##0 01/12/17 Unknown BUPROPION HCL (WELLBUTRIN SR) 200 mg PO BID ##0 01/12/17 Unknown CARVEDILOL (COREG) 12.5 mg PO BID ##0 01/12/17 Unknown CIRCULATION BOOSTER 1 dose PO TID ##0 01/12/17 Unknown COENZYME Q10 (UBIDECARENONE) (CO 100 mg PO DAILY ##0 01/12/17 Unknown Q-10) Dipyridamole/Aspirin (Aggrenox 1 cap PO BID ##0 01/12/17 Unknown 25-200 mg) FERROUS FUMARATE (IRON) 65 mg PO DAILY ##0 01/12/17 Unknown Krill Oil (Megared [place]-3 Krill 325 mg PO DAILY ##0 01/12/17 Unknown Oil 500 mg) Lisinopril (Zestril) 20 mg PO BID ##0 01/12/17 Unknown METHYLSULFONYLMETHANE (MSM) 1,000 mg PO DAILY ##0 01/12/17 Unknown MULTIPLE VITAMINS W/ MINERALS (ONE 1 tab PO DAILY ##0 01/12/17 Unknown DAILY ADULTS 50+) SITAGLIPTIN PHOSPHATE (Januvia) 100 mg PO DAILY ##0 01/12/17 Unknown Simvastatin (Zocor) 40 mg PO QPM ##0 01/12/17 Unknown Active Medications Generic Name Dose Route Start Last Admin Trade Name Freq PRN Reason Stop Dose Admin Hydromorphone HCl 0.5 mg 10/15/21 16:10 10/15/21 17:22 Hydromorphone Inj 0.5 Mg/0.5 Ml Syr IV 10/29/21 10:59 0.5 mg Q4H PRN Administration Pain Insulin Aspart 0 units 10/15/21 11:30 10/15/21 12:02 Insulin Aspart Per Unit SC 11/14/21 11:29 5 units ACHS SANDRA Administration Nystatin 1 appln 10/15/21 16:52 10/15/21 17:22 Nystatin Powder 15gm Btl EXT 11/14/21 16:51 1 appln BID PRN Administration Itching Past Medical History Medical History (Updated 10/15/21 @ 17:47 by Eric Bran MD) Chronic kidney disease (CKD) History of cerebrovascular accident Hyperlipidemia Hypertension Major depressive disorder Type 2 diabetes mellitus Past Surgical History Surgical History (Updated 10/15/21 @ 17:45 by Eric Bran MD) No pertinent past surgical history Social History Smoking Status: Never smoker Hx Alcohol Use: No Hx Substance Use: No Physical Exam Vital Signs Last Vital Signs Temp 36.9 C 10/15/21 15:44 Pulse 98 H 10/15/21 15:44 Resp 16 10/15/21 15:44 BP 169/89 H 10/15/21 15:44 Pulse Ox 93 10/15/21 15:44 O2 Del Method 10/15/21 15:44 O2 Flow Rate 2 10/15/21 12:00 Testing Laboratory Results 10/15/21 07:15 10/15/21 07:15 PT 10.1 Seconds (9.0-12.0) 10/15/21 07:15 INR 0.9 (0.9-1.1) 10/15/21 07:15 10/15/21 10/15/21 17:17 11:29 POC Glucose 162 H 203 H Electrocardiogram Date: 10/15/21 Findings: + ST @ (106) and + AL (old inferior ) PAC's Chest X-Ray Date: 10/15/21 Findings: + NAD and + cardiomegaly
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
[2021-10-15] MEDS: SIMVASTATIN 40 MG TAB PO SCH (21:19)
[2021-10-15] MEDS: buPROPion SR 100 MG TABCR PO SCH (21:19)
[2021-10-15] MEDS: lisinopril 20 MG TAB PO SCH (21:19)
[2021-10-15] MEDS: carvediloL 12.5 MG TAB PO SCH (21:20)
[2021-10-16] MEDS ORDERED: Nursing to Pharmacy Communication SCH ×2 (02:30→11:30)
[2021-10-16] MEDS ORDERED: INSULIN ASPART PER UNIT SC SCH (06:00)
[2021-10-16] MEDS ORDERED: ceFAZolin 2000MG 2,000 MG/15 ML SYR IV SCH (06:00)
[2021-10-16 06:37] LABS: Basophils # (auto) 0.08 K/uL (0-0.2); Basophils % (auto) 0.6 %; Eosinophils # (auto) 0.11 K/uL (0-0.50); Eosinophils % (auto) 0.8 %; Hematocrit (blood only) 42.6 % (34.1-44.9); Hemoglobin 13.9 g/dl (12.0-16.0); Immature Granulocytes # (auto) 0.05 K/uL (0.00-0.02); Immature Granulocytes % (auto) 0.4 %; Lymphocytes # (auto) 1.47 K/uL (1.2-3.4); Lymphocytes % (auto) 10.5 %; Mean Corpuscular Hemoglobin 29.8 pg (25.0-34.0); Mean Corpuscular Hgb Conc 32.6 g/dL (32.0-36.0); Mean Corpuscular Volume 91.2 fL (80.0-100.0); Mean Platelet Volume 9.6 fL (9.4-12.3); Monocytes # (auto) 1.44 K/uL (0.24-0.82); Monocytes % (auto) 10.3 %; Neutrophils # (auto) 10.85 K/uL (1.4-6.5); Neutrophils % (auto) 77.4 %; Platelet Count 244 K/uL (130-400); RDW Coefficient of Variation 13.3 % (11.5-14.5); RDW Standard Deviation 44.7 fL (36.4-46.3); Red Blood Count 4.67 M/uL (3.93-5.22)
[2021-10-16] MEDS ORDERED: ROPIVACAINE 0.5% 5 MG/ML 30 ML VIAL ONE (07:05)
[2021-10-16] MEDS ORDERED: SODIUM CHLORIDE 0.9% INJ 10 ML VIAL ONE (07:05)
--- NOTE | 2021-10-16 07:08 | History & Physical Bridge Note ---
Date of Service October 16, 2021 History & Physical Bridge Note I have examined the patient, reviewed the History & Physical and in the interval since the performance of the History & Physical I have noted the following changes of clinical significance: no changes noted
[2021-10-16 07:11] LABS: BUN Creatinine Ratio 24.2 (10-20); Calcium 8.8 mg/dl (8.5-10.1); Creatinine Clr Calc Pharmacy 59.3 ml/min; Est GFR (African American) 68.4 ml/min; Potassium 3.8 mmol/L (3.5-5.1)
[2021-10-16] MEDS ORDERED: fentaNYL citrate 100 MCG/2 ML VIAL ONE (07:22)
[2021-10-16] MEDS ORDERED: MIDAZOLAM HCL 1 MG/ML 2ML VIAL ONE (07:22)
[2021-10-16] MEDS ORDERED: BUPIVACAINE 0.5 % 5 MG/1 ML MPF 30ML VIAL ONE (07:34)
[2021-10-16] MEDS ORDERED: EPINEPHrine INJ 1 MG/ML AMP ONE (07:34)
[2021-10-16] MEDS ORDERED: ATROPINE SULFATE 0.1 MG/ML 10ML SYR IV PRN (07:45)
[2021-10-16] MEDS ORDERED: ONDANSETRON INJ 2 MG/ML 2 ML VIAL IV PRN ×2 (07:45→11:21)
[2021-10-16] MEDS ORDERED: LABETALOL HCL IV 5 MG/ML 20ML IV PRN (07:45)
[2021-10-16] MEDS ORDERED: fentaNYL citrate 100 MCG/2 ML VIAL IV PRN (07:45)
[2021-10-16] MEDS ORDERED: ceFAZolin 330 MG/ML 1 GM VIAL ONE ×2 (08:22)
[2021-10-16] MEDS ORDERED: NEOSTIGMINE METHYLSULFATE 1 MG/ML 10ML VIAL ONE (08:23)
[2021-10-16] MEDS ORDERED: GLYCOPYRROLATE 0.2 MG/ML VIAL ONE (08:23)
[2021-10-16] MEDS ORDERED: PROPOFOL IV EMULSION 10 MG/ML 20 ML VIAL IV ONE (08:23)
[2021-10-16] MEDS ORDERED: LIDOCAINE 2% MPF LOCAL 5 ML VIAL INFIL ONE (08:23)
[2021-10-16] MEDS ORDERED: ONDANSETRON INJ 2 MG/ML 2 ML VIAL ONE (08:23)
[2021-10-16] MEDS ORDERED: ROCURONIUM BROMIDE 10 MG/ML 5 ML VIAL IV ONE (08:45)
[2021-10-16] MEDS ORDERED: ALPHA LIPOIC ACID PEG SCH (09:00)
[2021-10-16] MEDS ORDERED: PHENYLEPHRINE 100MCG/ML 5ML SYR ONE (09:18)
[2021-10-16] MEDS ORDERED: ePHEDrine sulfate 50 MG/ML SYR ONE (09:18)
--- NOTE | 2021-10-16 10:41 | Operative Report ---
PG Post Operative Report Pre & Post Diagnosis Operation Date: 10/15/21 08:00 <No data on this case meets the specified criteria> Operation Date: 10/16/21 08:00 Pre-Op Diagnosis: Right trimalleolar ankle fracture dislocation Post-Op Diagnosis: Right trimalleolar ankle fracture dislocation I identified the patient and participated in the time-out.: Yes Procedure Operation Date: 10/15/21 08:00 <No data on this case meets the specified criteria> Operation Date: 10/16/21 08:00 Actual Procedures p Open Reduction Internal Fixation Right Ankle(Right) trimalleolar ankle fracture dislocation- Rubén Feliz MD Surgeon Rubén Feliz MD Baby Formula Mixer Deshawn Murray PA-C Estimated Blood Loss 25 Findings Consistent with Post-Op Diagnosis Specimens None Anesthesia Type General Regional Complications none Disposition Accompanied Patient To Recovery: No Indications Patient is a 76-year-old female with multiple medical comorbidities including significant diabetes who sustained a fall yesterday. It was early in the morning she fell in the bathroom. She had a markedly displaced ankle fracture. She brought the emergency room where this was evaluated. As she was admitted by the medicine service. She underwent closed reduction yesterday. She been medically optimized and indicated for surgical treatment. She had a very unstable trimalleolar ankle fracture. Description of Procedure Operative implants consist of: Medial side implants consist of: 1. Synthes 4.0 partially-threaded cancellous screws x2 with 1 washer. Lateral side implants consisted of: 1. Synthes right 6-hole shaft distal fibular locking plate. 2. 3.5 fully threaded cortical screws x4. 3. 4.0 partially-threaded cancellous screws x2. 4. 2.7 mm locking screws x5. The patient was taken the operating, identified, placed on the operating table supine position protectors were properly padded. IV antibiotics tried by anesthesia team. Block had been provided in the holding area. General anesthetic was implemented. A right thigh turn was then placed. The right lower extremity splint was then removed. The right foot and leg were then sc rubbed with Hibiclens and then prepped with ChloraPrep and draped in the usual sterile fashion. The right leg was elevated exsanguinated with use of an Esmarch in terms playset 3 mmHg. A medial approach to the ankle was then performed over the medial malleolus. I was quite concerned about her soft tissue envelope over the side but I felt her ankle was too unstable to just fix laterally. Sharp dissection scalp through subcutaneous tissue directly down the fracture site. There was a lot of periosteum in the fracture site which I removed. We reduced the medial malleolus and placed 2 wires across the fracture. I then placed two 4.0 partially-threaded cancellous screws over the wires at with 1 washer. This was verified radiographically and improve the stability markedly to the ankle. A ttention then drawn laterally. Direct lateral approach of the fibula was then performed through a longitudinal incision over the lateral fibula. Sharp dissection was carried through subcutaneous tissues directly down the fibula. There was severe comminution. I reduced this and held it with several K wires. A lateral fibular plate was then selected and affixed to the lateral aspect of the fibula with the 4 screws proximally. We then fixed this with a couple interfrag screws using partially- threaded cancellous screws and then placed on the distal locking screws distally. X-rays brought in. All hardware of was appropriate length in appropriate position. I then stressed the ankle and there was no gapping of the medial clear space. Attention drawn toward closing. All wounds irrigated with copious tony of normal saline. I did inject locally with 30 cc of half percent Marcaine with epinephrine. I then closed the periosteum over the fibular plate with 0 Vicryl suture in a [id number] fashion. The tourniquet was let down for final tourniquet time 76 minutes. Hemostasis assured use electrocautery. Both wounds once again irrigated and the subcutaneous tissues of both wounds were then closed with 2-0 Vicryl suture in buried erupted fashion skin was then closed with 3-0 nylon suture in simple fashion. Leg was then cleaned and dried a sterile dressing was Xeroform, 4 x 4's, sterile cast padding and a well-padded posterior and stirrup splint were applied. The patient then brought out of general incision transferred to the recovery room in stable condition. Patient tolerated procedure well and there were no complications. Khai Batres, physician rehab care assistant, was present for the entire procedure. His assistance was required for proper patient positioning, prepping and draping, surgical exposure, retraction, perform the technical details of the operation, closure of the incision and placement of the sterile bandage and postoperative splint. I attest to the content of the Intraoperative Record and any orders documented therein. Any exceptions are noted below.
--- NOTE | 2021-10-16 11:06 | Anesthesiology Progress Note ---
Date of Service October 16, 2021 Anesthesia Post Procedure Vital Signs Vital Signs: Temp Pulse Pulse Resp BP Pulse Ox O2 Del Method 10/16/21 11:00 65 15 110/60 96 Nasal Cannula 10/16/21 10:50 37.2 C 65 19 113/57 L 93 Room Air 10/16/21 10:40 72 17 119/59 L 94 Oxymask 10/16/21 10:30 88 19 116/57 L 94 Oxymask 10/16/21 10:22 36.1 C L 90 16 112/61 96 Oxymask 10/16/21 06:08 37.0 C 93 H 16 143/84 H 92 Room Air 10/15/21 21:18 37.3 C 93 H 16 142/78 H 93 Room Air 10/15/21 15:44 36.9 C 98 H 16 169/89 H 93 Room Air 10/15/21 13:42 152/84 H 10/15/21 13:05 37.5 C 16 182/88 H 96 Room Air 10/15/21 12:00 102 H 21 161/81 H 98 Nasal Cannula O2 Flow Rate 10/16/21 11:00 2 10/16/21 10:50 10/16/21 10:40 3 10/16/21 10:30 5 10/16/21 10:22 9 10/16/21 06:08 10/15/21 21:18 10/15/21 15:44 10/15/21 13:42 10/15/21 13:05 10/15/21 12:00 2 Pain Intensity Right Ankle: Pain Intensity: 4 Transfer of Care Handoff Completed per policy Notes Mental Status: alert / awake / arousable Patient Amnestic to Procedure: Yes Nausea / Vomiting: adequately controlled Pain: adequately controlled Airway Patency, RR, SpO2: stable & adequate BP & HR: stable & adequate Hydration State: stable & adequate Anesthetic Complications: no major complications apparent
[2021-10-16] MEDS ORDERED: MAGNESIUM HYDROXIDE SUSP 30 ML UDC PO PRN (11:21)
[2021-10-16] MEDS ORDERED: oxyCODONE HCL IR 5 MG TAB (IMMEDIATE RELEASE) PO PRN (11:21)
[2021-10-16] MEDS ORDERED: bisacodyL 10 MG SUPP PR PRN (11:21)
[2021-10-16] MEDS ORDERED: PHARMACY GLYCEMIC MGMT CONSULT PRN ×2 (11:21)
[2021-10-16] MEDS ORDERED: NALOXONE HCL 0.4 MG/1 ML VIAL/CARP IV PRN (11:21)
[2021-10-16] MEDS ORDERED: ALUMINUM/MAGNESIUM SUSP 30 ML UDC PO PRN (11:21)
[2021-10-16] MEDS ORDERED: METOCLOPRAMIDE HCL INJ 5 MG/ML 2 ML VIAL IV PRN (11:21)
--- NOTE | 2021-10-16 11:22 | Electrocardiogram Report ---
Test Reason : Blood Pressure : / mmHG Vent. Rate : 106 BPM Atrial Rate : 106 BPM P-R Int : 148 ms QRS Dur : 090 ms QT Int : 350 ms P-R-T Axes : 037 -29 -05 degrees QTc Int : 464 ms Sinus tachycardia with Premature supraventricular complexes Possible Left atrial enlargement Low voltage QRS Cannot rule out Anterior infarct , age undetermined Abnormal ECG When compared with ECG of 12-JAN-2017 11:33, Premature supraventricular complexes are now Present Confirmed by Dutch Levine ([id number]) on 10/16/2021 11:21:52 AM Referred By: REFERRED SELF Confirmed By:Dutch Levine
--- NOTE | 2021-10-16 11:33 | Fluoroscopy Report ---
FL ankle RT 2V CLINICAL HISTORY: RIGHT ORIF ANKLE COMPARISON STUDY: Right ankle 10/15/2021. FLUOROSCOPY TIME: 22 seconds. FINDINGS: 4 fluoroscopic spot images of the right ankle demonstrate internal fixation of a bimalleola r fracture. The hardware appears intact. The alignment appears near-anatomic. IMPRESSION: Fluoroscopic assistance provided for internal fixation of a bimalleolar right ankle fract ure. ACT 112: Negative or not required by law. Electronically signed by: Ulysses Lim M.D. 10/16/2021 11:32 AM
[2021-10-16] MEDS: carvediloL 12.5 MG TAB PO SCH ×2 (11:34→20:32)
[2021-10-16] MEDS: lisinopril 20 MG TAB PO SCH ×2 (11:35→20:32)
[2021-10-16] MEDS: CEROVITE ADV FORMULA TAB PO SCH (11:35)
[2021-10-16] MEDS: buPROPion SR 100 MG TABCR PO SCH ×2 (11:35→20:31)
[2021-10-16] MEDS: FERROUS SULFATE 325 MG TAB PO SCH (11:35)
[2021-10-16] MEDS: SODIUM CHLORIDE 0.9% 1000ML 1,000 ML IV SCH ×2 (12:04→21:59)
[2021-10-16] MEDS: INSULIN ASPART PER UNIT SC SCH ×3 (12:56→21:05)
[2021-10-16] MEDS: ACETAMINOPHEN 500 MG TAB PO SCH ×2 (14:15→20:31)
--- NOTE | 2021-10-16 15:44 | Hospitalist Progress Note ---
Date of Service October 16, 2021 Assessment & Plan (1) Fall: (2) Closed trimalleolar fracture of ankle: (3) History of cerebrovascular accident: (4) Type 2 diabetes mellitus: (5) Hypertension: (6) Chronic kidney disease (CKD): (7) Major depressive disorder: (8) Hyperlipidemia: Plan 76 year old female who presented to the ED 10/15 after mechanical fall at home sustaining right ankle fracture. No syncope. Right trimalleolar ankle fracture dislocation s/p ORIF right ankle today by Dr Feliz- further management per ortho team. Pain management, bowel regimen, PT eval H/o CVA- on ASA, statin DM-2- hold home meds. continue SSI HTN- on lisinopril, coreg CKD3a with elevated Cr- Resolved, Cr improved from 1.25->0.95. Avoid nephrotoxic. Recheck in am Depression- on wellbutrin Leucocytosis- stable, likely reactive, recheck in am DVT ppx- resume chemoprophylaxis when okay from surgical point Dispo- OR today. Needs PT eval and pain control. Updated at bedside Admission and Anticipated Discharge Date Admission Date: October 15, 2021 Subjective Seen after the surgery. Feels sleepy. Denies any pain as she is still under the effect of the nerve block. Doesn't have an appetite. No N/V/chest pain, shortness of breath. Physical Exam Physical Exam: General: Lying comfortably in bed, not in distress, on NC HEENT: EOMI, PERRL, MMM Chest: Clear breath sounds bilaterally, no wheezes or crackles CVS: Regular rate and rhythm, normal heart sounds, no murmur Abdomen: Soft, non tender, not distended, normal bowel sounds Neuro: Awake, alert, oriented, conversing well, non focal Extremities: RLE covered with dressing Results & Data Results & Data ([facility]) Vital Signs (Past 12 Hours) Vital Signs Temp Pulse Pulse Resp BP Pulse Ox O2 Del Method 10/16/21 14:18 36.7 C 91 H 12 127/68 96 Room Air 10/16/21 13:28 36.5 C 85 16 126/79 97 Nasal Cannula 10/16/21 12:15 36.6 C 85 20 131/72 97 Nasal Cannula 10/16/21 11:45 36.5 C 81 20 126/68 92 Room Air 10/16/21 11:15 37.1 C 82 16 132/73 94 Room Air 10/16/21 11:00 65 15 110/60 96 Nasal Cannula 10/16/21 10:50 37.2 C 65 19 113/57 L 93 Room Air 10/16/21 10:40 72 17 119/59 L 94 Oxymask 10/16/21 10:30 88 19 116/57 L 94 Oxymask 10/16/21 10:22 36.1 C L 90 16 112/61 96 Oxymask 10/16/21 06:08 37.0 C 93 H 16 143/84 H 92 Room Air O2 Flow Rate 10/16/21 14:18 10/16/21 13:28 1 10/16/21 12:15 2 10/16/21 11:45 10/16/21 11:15 10/16/21 11:00 2 10/16/21 10:50 10/16/21 10:40 3 10/16/21 10:30 5 10/16/21 10:22 9 10/16/21 06:08 Laboratory Results Short CBC 10/16/21 Range/Units 06:20 WBC 14.00 H (4.8-10.8) K/ul Hgb 13.9 (12.0-16.0) g/dl Hct 42.6 (34.1-44.9) % Plt Count 244 (130-400) K/uL BMP 10/16/21 06:20 Sodium 141 Potassium 3.8 Chloride 108 H Carbon Dioxide 24 BUN 23 Creatinine 0.95 D Glucose 188 H Calcium 8.8 Diagnostic Findings Ankle X-Ray 10/16/21 00:00 FL ankle RT 2V CLINICAL HISTORY: RIGHT ORIF ANKLE COMPARISON STUDY: Right ankle 10/15/2021. FLUOROSCOPY TIME: 22 seconds. FINDINGS: 4 fluoroscopic spot images of the right ankle demonstrate internal fixation of a bimalleolar fracture. The hardware appears intact. The alignment appears near-anatomic. IMPRESSION: Fluoroscopic assistance provided for internal fixation of a bimalleolar right ankle fracture. ACT 112: Negative or not required by law. Electronically signed by: Ulysses Lim M.D. 10/16/2021 11:32 AM Medications Administered Current Inpatient Medications Acetaminophen (Acetaminophen 500 Mg Tab) 1,000 mg PO Q8 SANDRA Stop: 08/23/22 13:59 Last Admin: 10/16/21 14:15 Dose: 1,000 mg Al Hydrox/Mg Hydrox/Simethicone (Aluminum/Magnesium Susp 30 Ml Udc) 15 ml PO Q4H PRN PRN Reason: Heartburn Stop: 11/15/21 11:20 Aspirin (Aspirin 81 Mg Ectab) 81 mg PO BID SANDRA Stop: 11/15/21 20:59 Atropine Sulfate (Atropine Sulfate 0.1 Mg/Ml 10ml Syr) 0.5 mg IV Q1M PRN PRN Reason: PACU Use-HR<40 &/or Bradycardi Stop: 10/16/21 15:45 Bisacodyl (Bisacodyl 10 Mg Supp) 10 mg NM DAILY PRN PRN Reason: Constipation Stop: 11/15/21 11:20 Bupropion HCl (Bupropion Sr 100 Mg Tabcr) 200 mg PO BID [facility] Stop: 11/14/21 20:59 Last Admin: 10/16/21 11:35 Dose: 200 mg Carvedilol (Carvedilol 12.5 Mg Tab) 12.5 mg PO BID SANDRA Stop: 11/14/21 20:59 Last Admin: 10/16/21 11:34 Dose: 12.5 mg Dextrose (Dextrose 50% 50 Ml Syringe) 25 - 50 ml IV UD PRN; Protocol PRN Reason: Hypoglycemia Protocol Stop: 11/14/21 10:59 Docusate Sodium (Docusate Sodium 100 Mg Cap) 100 mg PO BID [facility] Stop: 11/15/21 20:59 Fentanyl Citrate (Fentanyl Citrate 100 Mcg/2 Ml Vial) 25 mcg IV Q5M PRN PRN Reason: PACU Use Only-Pain Stop: 10/16/21 15:46 Ferrous Sulfate (Ferrous Sulfate 325 Mg Tab) 325 mg PO DAILY SANDRA Stop: 11/15/21 08:59 Last Admin: 10/16/21 11:35 Dose: 325 mg Glucagon (Glucagon For Inj 1 Mg Vial) 1 mg IM UD PRN; Protocol PRN Reason: Hypoglycemia Protocol Stop: 11/14/21 10:59 Glucose (Glucose 40% Gel 15 Gm Tube) 15 - 30 gm PO UD PRN; Protocol PRN Reason: Hypoglycemia Protocol Stop: 11/14/21 10:59 Glucose (Glucose 10 Tab/Tube) 4 - 8 tab PO UD PRN; Protocol PRN Reason: Hypoglycemia Protocol Stop: 11/14/21 10:59 Hydromorphone HCl (Hydromorphone Inj 0.5 Mg/0.5 Ml Syr) 0.5 mg IV Q4H PRN PRN Reason: Pain Stop: 10/29/21 10:59 Last Admin: 10/15/21 17:22 Dose: 0.5 mg Cefazolin Sodium (Ancef 2000mg) 2,000 mg in 15 mls @ 3.75 mls/min IV PREOP SANDRA Stop: 10/17/21 05:59 Last Admin: 10/16/21 08:15 Dose: 3.75 mls/min Sodium Chloride (Nss 1000ml) 1,000 mls @ 100 mls/hr IV .Q10H SANDRA Stop: 10/17/21 11:59 Last Admin: 10/16/21 12:04 Dose: 100 mls/hr Cefazolin Sodium (Ancef 2000mg) 2,000 mg in 15 mls @ 3.75 mls/min IV Q8H SANDRA; Protocol Stop: 10/17/21 00:03 Insulin Aspart (Insulin Aspart Per Unit) 0 units SC ACHS SANDRA Stop: 11/15/21 05:59 Last Admin: 10/16/21 12:56 Dose: 2 units Labetalol HCl (Labetalol Hcl Iv 5 Mg/Ml 20ml) 5 mg IV Q5M PRN PRN Reason: PACU Use-SBP>160 or DBP>100 Stop: 10/16/21 15:46 Lisinopril (Lisinopril 20 Mg Tab) 20 mg PO BID SANDRA Stop: 11/14/21 20:59 Last Admin: 10/16/21 11:35 Dose: 20 mg Magnesium Hydroxide (Magnesium Hydroxide Susp 30 Ml Udc) 30 ml PO Q6H PRN PRN Reason: Constipation Stop: 11/15/21 11:20 Metoclopramide HCl (Metoclopramide Hcl Inj 5 Mg/Ml 2 Ml Vial) 10 mg IV Q6H PRN PRN Reason: Nausea And Vomiting Stop: 11/15/21 11:20 Miscellaneous (Carbohydrates For Hypoglycemia ) 15 - 30 gm PO UD PRN PRN Reason: Hypoglycemia Treatment Stop: 11/14/21 10:59 Miscellaneous Information (Pharmacy Glycemic Mgmt Consult) 1 each N/A UD PRN PRN Reason: Consult Stop: 11/15/21 11:20 Multivitamins (Multivitamin Tab) 1 tab PO QAM SANDRA Stop: 11/16/21 08:59 Multivitamins/Minerals (Cerovite Adv Formula Tab) 1 tab PO DAILY SANDRA Stop: 11/15/21 08:59 Last Admin: 10/16/21 11:35 Dose: 1 tab Naloxone HCl (Naloxone Hcl 0.4 Mg/1 Ml Vial/Carp) 0.1 mg IV Q5M PRN PRN Reason: Oversedation/Resp Depression Stop: 11/15/21 11:20 Nystatin (Nystatin Powder 15gm Btl) 1 appln EXT BID PRN PRN Reason: Itching Stop: 11/14/21 16:51 Last Admin: 10/15/21 17:22 Dose: 1 appln Ondansetron HCl (Ondansetron Inj 2 Mg/Ml 2 Ml Vial) 4 mg IV ONCE PRN PRN Reason: PACU Use Only-Nausea/Vomiting Stop: 10/16/21 15:46 Ondansetron HCl (Ondansetron Inj 2 Mg/Ml 2 Ml Vial) 4 mg IV Q6H PRN PRN Reason: Nausea And Vomiting Stop: 11/15/21 11:20 Oxycodone HCl (Oxycodone Hcl Ir 5 Mg Tab (Immediate Release)) 5 - 10 mg PO Q6H PRN PRN Reason: Pain or Pre PT Stop: 10/30/21 11:20 Sennosides (Senna 8.6 Mg Tab) 17.2 mg PO HS SANDRA Stop: 11/15/21 20:59 Simvastatin (Simvastatin 40 Mg Tab) 40 mg PO QPM SANDRA Stop: 11/14/21 20:59 Last Admin: 10/15/21 21:19 Dose: 40 mg (1) Fall Encounter type: initial encounter Qualified Code(s): W19.XXXA - Unspecified fall, initial encounter (2) Closed trimalleolar fracture of ankle Encounter type: initial encounter Laterality: right Qualified Code(s): S82.851A - Displaced trimalleolar fracture of right lower leg, initial encounter for closed fracture
[2021-10-16] MEDS: ceFAZolin 2000MG 2,000 MG/15 ML SYR IV SCH ×2 (16:04→23:15)
[2021-10-16] MEDS: SIMVASTATIN 40 MG TAB PO SCH (20:32)
[2021-10-16] MEDS: SENNA 8.6 MG TAB PO SCH (20:32)
[2021-10-16] MEDS: DOCUSATE SODIUM 100 MG CAP PO SCH (20:32)
[2021-10-16] MEDS: ASPIRIN 81 MG ECTAB PO SCH (20:32)
[2021-10-16] MEDS: HYDROmorphone INJ 0.5 MG/0.5 ML SYR IV PRN (23:15)
[2021-10-17 06:24] LABS: Basophils # (auto) 0.07 K/uL (0-0.2); Basophils % (auto) 0.5 %; Eosinophils % (auto) 2.3 %; Hematocrit (blood only) 39.5 % (34.1-44.9); Hemoglobin 12.5 g/dl (12.0-16.0); Immature Granulocytes # (auto) 0.05 K/uL (0.00-0.02); Immature Granulocytes % (auto) 0.4 %; Lymphocytes # (auto) 1.04 K/uL (1.2-3.4); Mean Corpuscular Hemoglobin 29.8 pg (25.0-34.0); Mean Corpuscular Hgb Conc 31.6 g/dL (32.0-36.0); Mean Corpuscular Volume 94.3 fL (80.0-100.0); Mean Platelet Volume 9.2 fL (9.4-12.3); Monocytes # (auto) 1.36 K/uL (0.24-0.82); Monocytes % (auto) 10.5 %; Neutrophils # (auto) 10.15 K/uL (1.4-6.5); Neutrophils % (auto) 78.3 %; Platelet Count 207 K/uL (130-400); RDW Coefficient of Variation 13.4 % (11.5-14.5); RDW Standard Deviation 46.5 fL (36.4-46.3); Red Blood Count 4.19 M/uL (3.93-5.22); White Blood Count 12.97 K/ul (4.8-10.8)
[2021-10-17 06:31] LABS: Estimated Average Glucose 223 mg/dl; Hemoglobin A1C 9.4 % (4.5-5.6)
[2021-10-17] MEDS: ACETAMINOPHEN 500 MG TAB PO SCH ×3 (06:39→21:06)
[2021-10-17 06:44] LABS: BUN Creatinine Ratio 25.7 (10-20); Creatinine Clr Calc Pharmacy 51.7 ml/min; Est GFR (African American) 57.9 ml/min; Magnesium 1.9 mg/dl (1.7-2.4)
[2021-10-17] MEDS: FERROUS SULFATE 325 MG TAB PO SCH (08:43)
[2021-10-17] MEDS: MULTIVITAMIN TAB PO SCH (08:43)
[2021-10-17] MEDS: buPROPion SR 100 MG TABCR PO SCH ×2 (08:43→21:05)
[2021-10-17] MEDS: carvediloL 12.5 MG TAB PO SCH ×2 (08:43→20:48)
[2021-10-17] MEDS: DOCUSATE SODIUM 100 MG CAP PO SCH ×2 (08:43→20:47)
[2021-10-17] MEDS: CEROVITE ADV FORMULA TAB PO SCH (08:43)
[2021-10-17] MEDS: ASPIRIN 81 MG ECTAB PO SCH (08:44)
[2021-10-17] MEDS: lisinopril 20 MG TAB PO SCH ×2 (08:44→20:47)
[2021-10-17] MEDS: INSULIN ASPART PER UNIT SC SCH ×4 (09:03→20:52)
--- NOTE | 2021-10-17 09:53 | Progress Notes ---
DATE OF SERVICE: 10/17/2021. SUBJECTIVE: A 76-year-old white female with multiple medical comorbidities. Postop day 1 from ORIF of a displaced trimalleolar ankle fracture dislocation. She is doing pretty well. Some pain, but ma nageable. The block has worn off. No chest pain or shortness of breath. No other complaints. OBJECTIVE: VITAL SIGNS: Temperature is 37.3. Vital signs are stable. GENERAL: Shows a pleasant, elderly female. She is sitting up in bed and talking to the therapist. S he looks comfortable. EXTREMITIES: Examination of the right leg reveals the splint to be in place. Ankle is well aligned. She can dorsiflex and plantarflex her toes appropriately. She has got brisk refill. LABORATORY DATA: Hemoglobin 12.5, hematocrit 39.5. Electrolytes are stable. ASSESSMENT: A 76-year-old female with multiple medical comorbidities. Postop day 1 from ORIF of a f airly complex comminuted trimalleolar ankle fracture dislocation. She is doing well. Big issue with her is just wound healing. PLAN: We are going to keep her in this splint for 2-3 weeks. She is to keep pressure off her heel. She is nonweightbearing on right lower extremity. She is able to be discharged any time medically s table. I need to see her back two to three weeks out from surgery. We will plan on DVT prophylaxis including aspirin twice a day. Any orthopedic questions can be directed to [phone]. Job ID: [id number]
--- NOTE | 2021-10-17 10:12 | Pharmacy Report ---
Pharmacy Glycemic Short Note 2 - Date of Service October 17, 2021 - Glycemic Short BSG Results (Last 24 hours): 10/15/21 10/16/21 10/16/21 20:41 10:37 11:25 Glucose POC Glucose 144 H 163 H 175 H 10/16/21 10/16/21 10/17/21 17:19 20:50 06:10 Glucose 143 H POC Glucose 130 H 123 H 10/17/21 08:03 Glucose POC Glucose 137 H OUTPATIENT ANTIDIABETIC REGIMEN: * Glipizide XL 10 mg PO daily * Januvia 100 mg PO daily * HbA1C = 9.4% (10/16/21) ASSESSMENT: * Ms Sommers is a 76 y/o F with a PMH of T2DM who presents with an ankle fracture. Patient s/p surgery. * Yesterday, BSGs were [phone] mg/dL. Patient received 4 units of Novolog (no basal) * Fasting today is 137 mg/dL. * Continue to hold Lantus as fasting within goal range. * Continue weight-based stress of 2 Novolog. Titrate as necessary. PLAN FOR INPATIENT GLYCEMIC CONTROL: * Hold outpatient oral diabetes medications * Basal insulin * Lantus- hold * Bolus insulin * NovoLog per scale ACHS or Q6hrs while NPO * Goal Range: Low 110 mg/dL - High 140 mg/dL * Correction Factor: 25 mg/dL/unit * Nutritional / Prandial insulin per carb ratio of 1 unit per 8 grams CHO consumed
--- NOTE | 2021-10-17 19:32 | Hospitalist Progress Note ---
Date of Service October 17, 2021 Assessment & Plan (1) Fall: (2) Closed trimalleolar fracture of ankle: (3) History of cerebrovascular accident: (4) Type 2 diabetes mellitus: (5) Hypertension: (6) Chronic kidney disease (CKD): (7) Major depressive disorder: (8) Hyperlipidemia: Plan 76 year old female who presented to the ED 10/15 after mechanical fall at home sustaining right ankle fracture. No syncope. Right trimalleolar ankle fracture dislocation s/p ORIF right ankle 10/[address] Feliz- Seen by ortho- recommendations noted as below. - Per ortho- ' keep her in this splint for 2-3 weeks. She is to keep pressure off her heel. She is nonweightbearing on right lower extremity. She is able to be discharged any time medically stable. I need to see her back two to three weeks out from surgery. We will plan on DVT prophylaxis including aspirin twice a day.' H/o CVA- on ASA, statin DM-2- hold home meds. continue SSI HTN- on lisinopril, coreg CKD3a with elevated Cr- Resolved, Cr improved from 1.25->0.95. Avoid nephrotoxic. Recheck in am Depression- on wellbutrin Leucocytosis- stable, likely reactive, improving, recheck in am DVT ppx- sc lovenox inhouse. change to aspirin bid at discharge per ortho recommendations Dispo- PT recommended rehab. CM following. Medically stable to go to rehab Updated at bedside Admission and Anticipated Discharge Date Admission Date: October 15, 2021 Subjective Pain controlled. Had urinary retention overnight but currently resolved. PT recommended rehab however she wanted to go home. However she did poorly with the bedside RN during transfers and deemed not safe for home discharge. Revisited in presence of and RN and she is agreeable to go to inpatient rehab. CM informed who visited the patient and to discuss options. Physical Exam Physical Exam: General: Lying comfortably in bed, not in distress, on NC HEENT: EOMI, PERRL, MMM Chest: Clear breath sounds bilaterally, no wheezes or crackles CVS: Regular rate and rhythm, normal heart sounds, no murmur Abdomen: Soft, non tender, not distended, normal bowel sounds Neuro: Awake, alert, oriented, conversing well, non focal Extremities: RLE covered with dressing Results & Data Results & Data ([facility]) Vital Signs (Past 12 Hours) Vital Signs Temp Pulse Resp BP Pulse Ox O2 Del Method 10/17/21 14:24 36.7 C 88 17 139/79 93 Room Air Laboratory Results Short CBC 10/17/21 Range/Units 06:10 WBC 12.97 H (4.8-10.8) K/ul Hgb 12.5 (12.0-16.0) g/dl Hct 39.5 (34.1-44.9) % Plt Count 207 (130-400) K/uL BMP 10/17/21 06:10 Sodium 140 Potassium 4.0 Chloride 109 H Carbon Dioxide 24 BUN 28 H Creatinine 1.09 Glucose 143 H Calcium 8.0 L Medications Administered Current Inpatient Medications Acetaminophen (Acetaminophen 500 Mg Tab) 1,000 mg PO Q8 SANDRA Stop: 11/15/21 13:59 Last Admin: 10/17/21 14:04 Dose: 1,000 mg Al Hydrox/Mg Hydrox/Simethicone (Aluminum/Magnesium Susp 30 Ml Udc) 15 ml PO Q4H PRN PRN Reason: Heartburn Stop: 11/15/21 11:20 Aspirin (Aspirin 81 Mg Ectab) 81 mg PO BID [facility] Stop: 11/15/21 20:59 Last Admin: 10/17/21 08:44 Dose: 81 mg Bisacodyl (Bisacodyl 10 Mg Supp) 10 mg PA DAILY PRN PRN Reason: Constipation Stop: 11/15/21 11:20 Bupropion HCl (Bupropion Sr 100 Mg Tabcr) 200 mg PO BID [facility]A Stop: 11/14/21 20:59 Last Admin: 10/17/21 08:43 Dose: 200 mg Carvedilol (Carvedilol 12.5 Mg Tab) 12.5 mg PO BID [facility] Stop: 11/14/21 20:59 Last Admin: 10/17/21 08:43 Dose: 12.5 mg Dextrose (Dextrose 50% 50 Ml Syringe) 25 - 50 ml IV UD PRN; Protocol PRN Reason: Hypoglycemia Protocol Stop: 11/14/21 10:59 Docusate Sodium (Docusate Sodium 100 Mg Cap) 100 mg PO BID [facility]DRA Stop: 11/15/21 20:59 Last Admin: 10/17/21 08:43 Dose: 100 mg Ferrous Sulfate (Ferrous Sulfate 325 Mg Tab) 325 mg PO DAILY [facility]DRA Stop: 11/15/21 08:59 Last Admin: 10/17/21 08:43 Dose: 325 mg Glucagon (Glucagon For Inj 1 Mg Vial) 1 mg IM UD PRN; Protocol PRN Reason: Hypoglycemia Protocol Stop: 11/14/21 10:59 Glucose (Glucose 40% Gel 15 Gm Tube) 15 - 30 gm PO UD PRN; Protocol PRN Reason: Hypoglycemia Protocol Stop: 11/14/21 10:59 Glucose (Glucose 10 Tab/Tube) 4 - 8 tab PO UD PRN; Protocol PRN Reason: Hypoglycemia Protocol Stop: 11/14/21 10:59 Hydromorphone HCl (Hydromorphone Inj 0.5 Mg/0.5 Ml Syr) 0.5 mg IV Q4H PRN PRN Reason: Pain Stop: 10/29/21 10:59 Last Admin: 10/16/21 23:15 Dose: 0.5 mg Insulin Aspart (Insulin Aspart Per Unit) 0 units SC ACHS SANDRA Stop: 11/15/21 05:59 Last Admin: 10/17/21 17:47 Dose: 1 units Lisinopril (Lisinopril 20 Mg Tab) 20 mg PO BID [facility]DRA Stop: 11/14/21 20:59 Last Admin: 10/17/21 08:44 Dose: 20 mg Magnesium Hydroxide (Magnesium Hydroxide Susp 30 Ml Udc) 30 ml PO Q6H PRN PRN Reason: Constipation Stop: 11/15/21 11:20 Metoclopramide HCl (Metoclopramide Hcl Inj 5 Mg/Ml 2 Ml Vial) 10 mg IV Q6H PRN PRN Reason: Nausea And Vomiting Stop: 11/15/21 11:20 Miscellaneous (Carbohydrates For Hypoglycemia ) 15 - 30 gm PO UD PRN PRN Reason: Hypoglycemia Treatment Stop: 11/14/21 10:59 Miscellaneous Information (Pharmacy Glycemic Mgmt Consult) 1 each N/A UD PRN PRN Reason: Consult Stop: 11/15/21 11:20 Multivitamins (Multivitamin Tab) 1 tab PO QAM SANDRA Stop: 11/16/21 08:59 Last Admin: 10/17/21 08:43 Dose: 1 tab Multivitamins/Minerals (Cerovite Adv Formula Tab) 1 tab PO DAILY SANDRA Stop: 11/15/21 08:59 Last Admin: 10/17/21 08:43 Dose: 1 tab Naloxone HCl (Naloxone Hcl 0.4 Mg/1 Ml Vial/Carp) 0.1 mg IV Q5M PRN PRN Reason: Oversedation/Resp Depression Stop: 11/15/21 11:20 Nystatin (Nystatin Powder 15gm Btl) 1 appln EXT BID PRN PRN Reason: Itching Stop: 11/14/21 16:51 Last Admin: 10/15/21 17:22 Dose: 1 appln Ondansetron HCl (Ondansetron Inj 2 Mg/Ml 2 Ml Vial) 4 mg IV Q6H PRN PRN Reason: Nausea And Vomiting Stop: 11/15/21 11:20 Oxycodone HCl (Oxycodone Hcl Ir 5 Mg Tab (Immediate Release)) 5 - 10 mg PO Q6H PRN PRN Reason: Pain or Pre PT Stop: 10/30/21 11:20 Last Admin: 10/16/21 22:28 Dose: 10 mg Sennosides (Senna 8.6 Mg Tab) 17.2 mg PO HS SANDRA Stop: 11/15/21 20:59 Last Admin: 10/16/21 20:32 Dose: 17.2 mg Simvastatin (Simvastatin 40 Mg Tab) 40 mg PO QPM SANDRA Stop: 11/14/21 20:59 Last Admin: 10/16/21 20:32 Dose: 40 mg (1) Fall Encounter type: initial encounter Qualified Code(s): W19.XXXA - Unspecified fall, initial encounter (2) Closed trimalleolar fracture of ankle Encounter type: initial encounter Laterality: right Qualified Code(s): S82.851A - Displaced trimalleolar fracture of right lower leg, initial encounter for closed fracture
[2021-10-17] MEDS: SENNA 8.6 MG TAB PO SCH (20:47)
[2021-10-17] MEDS: SIMVASTATIN 40 MG TAB PO SCH (20:47)
[2021-10-17] MEDS ORDERED: ENOXAPARIN INJ 40 MG/0.4 ML SYR SQ SCH (21:00)
[2021-10-18] MEDS: ACETAMINOPHEN 500 MG TAB PO SCH ×2 (06:29→14:31)
[2021-10-18] MEDS: buPROPion SR 100 MG TABCR PO SCH (08:30)
[2021-10-18] MEDS: DOCUSATE SODIUM 100 MG CAP PO SCH (08:31)
[2021-10-18] MEDS: lisinopril 20 MG TAB PO SCH (08:31)
[2021-10-18] MEDS: MULTIVITAMIN TAB PO SCH (08:31)
[2021-10-18] MEDS: FERROUS SULFATE 325 MG TAB PO SCH (08:31)
[2021-10-18] MEDS: CEROVITE ADV FORMULA TAB PO SCH (08:31)
[2021-10-18] MEDS ORDERED: ASPIRIN 81 MG ECTAB PO SCH (09:00)
[2021-10-18 09:16] LABS: Hematocrit (blood only) 39.6 % (34.1-44.9); Hemoglobin 12.7 g/dl (12.0-16.0); Mean Corpuscular Hemoglobin 29.4 pg (25.0-34.0); Mean Corpuscular Hgb Conc 32.1 g/dL (32.0-36.0); Mean Corpuscular Volume 91.7 fL (80.0-100.0); Mean Platelet Volume 9.7 fL (9.4-12.3); Platelet Count 224 K/uL (130-400); RDW Coefficient of Variation 13.2 % (11.5-14.5); RDW Standard Deviation 44.5 fL (36.4-46.3); Red Blood Count 4.32 M/uL (3.93-5.22); White Blood Count 9.86 K/ul (4.8-10.8)
[2021-10-18] MEDS: carvediloL 12.5 MG TAB PO SCH (09:32)
[2021-10-18 09:38] LABS: Calcium 8.7 mg/dl (8.5-10.1); Creatinine Clr Calc Pharmacy 61.2 ml/min; Est GFR (African American) 71.1 ml/min; Est GFR (Non-African American) 61.3 ml/min; Potassium 4.1 mmol/L (3.5-5.1)
[2021-10-18] MEDS: INSULIN ASPART PER UNIT SC SCH ×2 (09:43→13:15)
--- NOTE | 2021-10-18 13:40 | Progress Notes ---
DATE OF SERVICE: 10/18/2021. SUBJECTIVE: A 76-year-old female postop day 2 from ORIF of a trimalleolar ankle fracture dislocation . She is doing pretty well. Reports no pain today. She is hoping to go to a correction facili . OBJECTIVE: VITAL SIGNS: Temperature is 37.2. Vital signs are stable. PHYSICAL EXAMINATION: GENERAL: Shows a pleasant, elderly female. She is sitting up in her bedside chair, looks comfortabl e. EXTREMITIES: Examination of the right leg and ankle reveals the dressing to be clean, dry and intact . No significant swelling. She can dorsiflex and plantarflex her foot appropriately. LABORATORY DATA: Hemoglobin 12.7. Hematocrit 39.6. Electrolytes are stable. ASSESSMENT: A 76-year-old female postoperative day 2 from open reduction and internal fixation of a right trimalleolar ankle fracture dislocation. She is doing pretty well. Just waiting for placement . PLAN: 1. DVT prophylaxis includes thigh-high TEDs, SCDs, and aspirin twice a day. 2. PT/OT. She is nonweightbearing on the right leg. Needs to keep the splint clean, dry and in yoel ce. Keep all pressure off the heel. 3. Medical management as per the medicine service. 4. Disposition: She is orthopedically okay for discharge any time. I need to see her back 2-3 week s out from surgery date. Strictly nonweightbearing on this right leg for the next 2-3 weeks. Job ID: [id number]
--- NOTE | 2021-10-18 14:57 | Discharge Summary ---
Date of Service October 18, 2021 Admission HPI Per Admitting Provider She is a 76-year-old obese female with significant past medical history of type 2 diabetes with complication, hypertension, history of CVA, hyperlipidemia, major depressive disorder, primary osteoarthritis and chronic kidney disease a stage III yea apparently has had a fall early this morning when she was trying to go to bathroom and tripped. She did not have any warning symptoms before the fall and following fall she could not manage to get up due to severe right ankle pain. She denies any loss of consciousness and did not have any significant trauma to the other parts of the body including head. She has been otherwise ambulant without any significant symptoms before the fall. She has noted to have right trimalleolar fracture without any significant lab abnormalities. Ortho was consulted and she will have possible surgery tomorrow as per the Ortho service. Admission Exam Per Admitting Provider Physical Exam: Lying in bed comfortably Constitutional: well developed, well nourished, + ill appearing and + obese Eyes: PERRL, conjunctivae normal, anicteric sclerae ENMT: external ear and nose normal, oropharynx normal Neck: trachea midline, no thyromegaly Respiratory: no respiratory distress Auscultation: + diminished lung sounds (At the bases); no crackles Cardiovascular: Rate/Rhythm: regular rate and regular rhythm; not tachycardic Heart Sounds: normal S1, normal S2 and + murmur (1/6 ESM over precordium) Extremities: no edema (Right leg is bandaged) Gastrointestinal (Abdomen): Inspection/Auscultation: normal bowel sounds; abdomen not distended Percussion/Palpation: abdomen soft; abdomen nontender Musculoskeletal: Ankle: + ankle abnormal to inspection (Right ankle is bandaged) Neurologic: Alert, awake and oriented x3. No focal sensory or no motor deficit Psychiatric: A+Ox3, euthymic affect Lymphatic: no cervical or axillary lymphadenopathy Principal Diagnosis Mechanical fall with right ankle fracture Discharge Exam General: Sitting comfortably in wheelchair, not in distress, on room air HEENT: EOMI, PERRL, MMM Chest: Clear breath sounds bilaterally, no wheezes or crackles CVS: Regular rate and rhythm, normal heart sounds, no murmur Abdomen: Soft, non tender, not distended, normal bowel sounds Neuro: Awake, alert, oriented, conversing well Extremities: RLE covered with dressing. Wiggles distal toes. Discharge Data Allergies Allergy/AdvReac Type Severity Reaction Status Date / Time No Known Allergies Allergy Verified 01/12/17 11:12 Consultations 10/15/21 09:43 Consult Orthopedic Surgery Routine 10/15/21 09:56 ED Decision to Admit Stat Procedures Performed Operation Date: 10/15/21 08:00 <No data on this case meets the specified criteria> Operation Date: 10/16/21 08:00 Actual Procedures p Open Reduction Internal Fixation Right Ankle(Right) - Rubén Feliz MD Ordered Studies 10/16/21 FL ankle RT 2V Routine 10/16/21 07:14 US - OR guided needle placemen Routine Laboratory Results WBC 9.86 K/ul (4.8-10.8) 10/18/21 08:41 RBC 4.32 M/uL (3.93-5.22) 10/18/21 08:41 Hgb 12.7 g/dl (12.0-16.0) 10/18/21 08:41 Hct 39.6 % (34.1-44.9) 10/18/21 08:41 MCV 91.7 fL (80.0-100.0) 10/18/21 08:41 MCH 29.4 pg (25.0-34.0) 10/18/21 08:41 MCHC 32.1 g/dL (32.0-36.0) 10/18/21 08:41 RDW Std Deviation 44.5 fL (36.4-46.3) 10/18/21 08:41 RDW Coeff of Dodie 13.2 % (11.5-14.5) 10/18/21 08:41 Plt Count 224 K/uL (130-400) 10/18/21 08:41 MPV 9.7 fL (9.4-12.3) 10/18/21 08:41 Immature Gran % (Auto) 0.4 % 10/17/21 06:10 Neut % (Auto) 78.3 % 10/17/21 06:10 Lymph % (Auto) 8.0 % 10/17/21 06:10 [place] % (Auto) 10.5 % 10/17/21 06:10 Eos % (Auto) 2.3 % 10/17/21 06:10 Baso % (Auto) 0.5 % 10/17/21 06:10 Neut # (Auto) 10.15 K/uL (1.4-6.5) H 10/17/21 06:10 Lymph # (Auto) 1.04 K/uL (1.2-3.4) L 10/17/21 06:10 [place] # (Auto) 1.36 K/uL (0.24-0.82) H 10/17/21 06:10 Eos # (Auto) 0.30 K/uL (0-0.50) 10/17/21 06:10 Baso # (Auto) 0.07 K/uL (0-0.2) 10/17/21 06:10 Immature Gran # (Auto) 0.05 K/uL (0.00-0.02) H 10/17/21 06:10 PT 10.1 Seconds (9.0-12.0) 10/15/21 07:15 INR 0.9 (0.9-1.1) 10/15/21 07:15 Sodium 140 mmol/L (136-145) 10/18/21 08:41 Potassium 4.1 mmol/L (3.5-5.1) 10/18/21 08:41 Chloride 108 mmol/L (98-107) H 10/18/21 08:41 Carbon Dioxide 24 mmol/L (21-32) 10/18/21 08:41 Anion Gap 8 (3-11) 10/18/21 08:41 BUN 23 mg/dl (6-23) 10/18/21 08:41 Creatinine 0.92 mg/dl (0.6-1.2) 10/18/21 08:41 Est Cr Clr Drug Dosing 61.2 ml/min 10/18/21 08:41 Est GFR ( Amer) 71.1 ml/min 10/18/21 08:41 Est GFR (Non-Af Amer) 61.3 ml/min 10/18/21 08:41 BUN/Creatinine Ratio 25.0 (10-20) H 10/18/21 08:41 Glucose 101 mg/dl (70-99(Fasting)) H 10/18/21 08:41 POC Glucose 139 mg/dl (70-99) H 10/18/21 12:10 Estimat Average Glucose 223 mg/dl 10/16/21 06:20 Hemoglobin A1c 9.4 % (4.5-5.6) H 10/16/21 06:20 Calcium 8.7 mg/dl (8.5-10.1) 10/18/21 08:41 Magnesium 1.9 mg/dl (1.7-2.4) 10/17/21 06:10 Total Creatine Kinase 16 U/L (26-192) L 10/15/21 07:15 Hepatitis C Ab (EIA) NON-REACTIVE (NON-REACTIVE) 10/16/21 06:20 Hep C Ab Signal/Cutoff 0.01 (<1.00) 10/16/21 06:20 SARS-CoV-2, RNA, NAAT NEGATIVE (NEGATIVE) 10/18/21 12:29 Impressions Tibia/Fibula X-Ray 10/15/21 07:24 RIGHT TIBIA AND FIBULA 2 VIEWS; RIGHT ANKLE 2 VIEWS CLINICAL HISTORY: Postreduction examination. FINDINGS: Portable AP and crosstable lateral views of the right tibia and fibula with AP and crosstable lateral views of the right ankle are obtained. Comparison is made to study performed earlier the same day 10/15/2021. The examination is performed through a splint, obscuring fine bony detail. Significant edema is present around the ankle. Again seen is a trimalleolar fracture of the ankle joint. There is a displaced fracture through the base of the medial malleolus. The medial malleolus is distracted laterally by approximately 1.8 cm. There is a displaced vertically oriented fracture through the posterior tibial plafond comment with a comminuted and mildly angulated fracture of the distal fibular shaft. There is lateral displacement of the talus by approximately 1 cm, as well as dorsal displacement of the talus by approximately 1.2 cm. There is widening of the anterior joint space. Joint effusion is noted. Mild valgus angulation is noted at the tibiotalar joint. Question an impaction injury at the talar dome. The proximal tibia and fibula appear intact. There is chronic posttraumatic deformity of the proximal fibular shaft. Degenerative change and joint effusion is noted in the right knee. IMPRESSION: 1. Trimalleolar fracture/dislocation at the ankle joint as above. Alignment has improved status post external fixation. 2. The proximal tibia and fibula appear intact. 3. Question an impaction injury at the talar dome. Electronically signed by: Nikolas Dobson M.D. 10/15/2021 8:40 AM Chest X-Ray 10/15/21 09:22 SINGLE VIEW CHEST CLINICAL HISTORY: Preoperative examination. Ankle fractures. FINDINGS: An AP, portable, upright chest radiograph is compared to study dated 09/22/2011. The heart is mildly enlarged noting atherosclerotic calcification of the thoracic ureter. There is mild pulmonary vascular congestion. Atelectasis is noted at the lung bases. The lungs and pleural spaces are otherwise clear. No pneumothorax is seen. The skeletal structures are osteopenic. There are healed left-sided rib fractures. IMPRESSION: 1. Cardiomegaly with pulmonary vascular congestion. 2. No airspace consolidation or large pleural effusion is identified. ACT 112: Negative or not required by law. Electronically signed by: Nikolas Dobson M.D. 10/15/2021 9:39 AM Ankle X-Ray 10/16/21 00:00 FL ankle RT 2V CLINICAL HISTORY: RIGHT ORIF ANKLE COMPARISON STUDY: Right ankle 10/15/2021. FLUOROSCOPY TIME: 22 seconds. FINDINGS: 4 fluoroscopic spot images of the right ankle demonstrate internal fixation of a bimalleolar fracture. The hardware appears intact. The alignment appears near-anatomic. IMPRESSION: Fluoroscopic assistance provided for internal fixation of a bimalleolar right ankle fracture. ACT 112: Negative or not required by law. Electronically signed by: Ulysses Lim M.D. 10/16/2021 11:32 AM Diabetes Follow up Diabetes Follow-up Needed for HgbA1c >9% Hospital Course (1) Fall: (2) Closed trimalleolar fracture of ankle: (3) History of cerebrovascular accident: (4) Type 2 diabetes mellitus: (5) Hypertension: (6) Chronic kidney disease (CKD): (7) Major depressive disorder: (8) Hyperlipidemia: Plan 76 year old female who presented to the ED 10/15 after mechanical fall at home sustaining right ankle fracture. No syncope. Right trimalleolar ankle fracture dislocation s/p ORIF right ankle 10/[address] Feliz- - PT recommended rehab and being discharged to [facility] for rehab. She denies any pain and has not required any narcotics since 10/16. Her pain is well controlled on tylenol which will be continued at discharge. - Per ortho- "1. DVT prophylaxis includes thigh-high TEDs, SCDs, and aspirin twice a day. 2. PT/OT. She is nonweightbearing on the right leg. Needs to keep the splint clean, dry and in place. Keep all pressure off the heel. 4. Disposition: She is orthopedically okay for discharge any time. I need to see her back 2-3 weeks out from surgery date. Strictly nonweightbearing on this right leg for the next 2-3 weeks." H/o CVA- on ASA, statin Uncontrolled DM-2- A1c 9.4. - further glycemic management per rehab physician - Continue januvia. She could not tolerate metformin in the past. Recommend follow up with PCP for better blood sugar control - seen by fur stretcher- supplies sent. I also reinforced the importance of better diabetic control for better wound healing as well as overall well being. HTN- on lisinopril, coreg CKD3a with elevated Cr- Resolved, Cr improved from 1.25->0.95->0.92. Depression- on wellbutrin Leucocytosis- resolved, likely reactive She is comfortable and stable for discharge to rehab. Updated at bedside. Total Time Total Time Spent Total Time Spent (In Minutes): 45 Discharge Plan Discharge Items Patient Disposition: Transfer [facility] Reason For Visit: FALL WITH RT ANKLE FRACTURE Discharge Diagnosis: Right Ankle Fracture Activity: Per Instructions section Activity Comment: No weight on right leg until follow-up appointment Bathing Comment: Keep splint clean, dry, and in place until follow-up appointment Weightbearing: Right non-weightbearing Weightbearing Comment: Non-weightbearing on right leg. Keep all pressure off heel Non-emergency contact: Primary Care Provider Call non-emergency contact if: you have any medication questions, your symptoms worsen, your pain is concerning for you and you have a fever Follow-up/Referrals: Rubén Feliz MD [Physician] - (Orthopedic follow-up 2-3 weeks from surgery date) Indira Argueta DO [Primary Care Provider] - Diet: Carb Consistent or DM2 Addtl Attending Provider Instructions: Keep splint clean, dry, and in place for 2-3 weeks per ortho Keep all pressure off heel Elevate right leg as much as possible Strict non weight bearing right leg for next 2-3 weeks Aspirin twice daily for DVT prophylaxis per orthopedics along with thigh high TEDs and SCDs. Follow up with orthopedics in 2-3 weeks Follow up with family doctor for better control of blood sugar. Continue checking your blood sugar at home. Pending Studies at Discharge: No Stand-Alone Forms: My [facility] Skilled Items Patient informed of condition?: Yes DNR: No Discharge Level of Care: Skilled Communicable Disease: No Discharge Prognosis: Stable Lines: None Urinary Catheter: No Medications and DC Order Prescriptions: New acetaminophen [Tylenol Extra Strength] 500 mg Tablet 1,000 mg PO Q8 PRN (Reason: pain) Qty: 30 0RF (DME) lancets [OneTouch Delica Lancets] 33 gauge misc See Rx Instructions .Route Qty: 100 0RF Rx Instructions: As directed (DME) OneTouch Verio test strips Strip See Rx Instructions .Route Qty: 100 0RF Rx Instructions: As directed Continued ALPHA-LIPOIC ACID (THIOCTIC AC (ALPHA LIPOIC ACID) 200 MG capsule 200 mg PEG DAILY Qty: 0 ASPIRIN (ASPIRIN EC) 325 MG tablet 325 mg PO BID Qty: 0 BUPROPION HCL (WELLBUTRIN SR) 200 MG tablet 200 mg PO BID Qty: 0 CARVEDILOL (COREG) 12.5 MG tablet 12.5 mg PO BID Qty: 0 CIRCULATION BOOSTER 1 dose PO TID Qty: 0 Label Comments: LIST SAYS "DIABETIC CIRCULATION BOOSTER" COENZYME Q10 (UBIDECARENONE) (CO Q-10) 100 MG capsule 100 mg PO DAILY Qty: 0 Dipyridamole/Aspirin (Aggrenox 25-200 mg) 1 CAP capsule 1 cap PO BID Qty: 0 FERROUS FUMARATE (IRON) 18 MG tablet 65 mg PO DAILY Qty: 0 Krill Oil (Megared [place]-3 Krill Oil 500 mg) 1 CAP capsule 325 mg PO DAILY Qty: 0 Lisinopril (Zestril) 20 MG tablet 20 mg PO BID Qty: 0 METHYLSULFONYLMETHANE (MSM) 1,000 MG tablet 1,000 mg PO DAILY Qty: 0 MULTIPLE VITAMINS W/ MINERALS (ONE DAILY ADULTS 50+) 1 TAB tablet 1 tab PO DAILY Qty: 0 SITAGLIPTIN PHOSPHATE (Januvia) 100 MG tablet 100 mg PO DAILY Qty: 0 Simvastatin (Zocor) 40 MG tablet 40 mg PO QPM Qty: 0 Discharge Orders: Discharge Order (Routine); Ordered 10/18/21 Ordered By: Maxx Hodge/Other Patient Handouts: Managing Type 2 Diabetes, Diabetes: Meal Planning Admission Data Admit Date/Time: 10/15/21 10:34 Attending Provider: Maxx Hsu Admit Provider: Maxwell Wilson Primary Care Provider: Indira Argueta Other Providers: Rubén Feliz ; Maxwell Wilson ; [facility] ; Jonny Solomon [place] ; [facility] Other Interventions: Discharge Summary Assessment (RN) Last Done: 10/18/21 13:39
== END 2021-10-18 15:36 | DRG 494 ==
LOC: ED 06:37 → 3W 10:34 → SUATTDRO 10:34 → 3W 13:22

== ENCOUNTER 2021-11-18 11:40 | Inpatient (IN) ==
[2021-11-18 14:01] LABS: Basophils # (auto) 0.05 K/uL (0-0.2); Basophils % (auto) 0.4 %; Eosinophils # (auto) 0.43 K/uL (0-0.50); Eosinophils % (auto) 3.1 %; Hematocrit (blood only) 39.2 % (34.1-44.9); Hemoglobin 12.4 g/dl (12.0-16.0); Immature Granulocytes % (auto) 0.7 %; Lymphocytes # (auto) 2.46 K/uL (1.2-3.4); Mean Corpuscular Hemoglobin 29.7 pg (25.0-34.0); Mean Corpuscular Hgb Conc 31.6 g/dL (32.0-36.0); Mean Corpuscular Volume 93.8 fL (80.0-100.0); Mean Platelet Volume 9.4 fL (9.4-12.3); Monocytes # (auto) 1.39 K/uL (0.24-0.82); Monocytes % (auto) 10.2 %; Neutrophils # (auto) 9.24 K/uL (1.4-6.5); Neutrophils % (auto) 67.6 %; Platelet Count 222 K/uL (130-400); RDW Coefficient of Variation 14.5 % (11.5-14.5); RDW Standard Deviation 49.5 fL (36.4-46.3); Red Blood Count 4.18 M/uL (3.93-5.22); White Blood Count 13.67 K/ul (4.8-10.8)
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
[2021-11-18 14:13] LABS: Prothrombin Time 10.7 Seconds (9.0-12.0)
[2021-11-18 14:25] LABS: Alanine Aminotransferase 7 U/L (7-52); Albumin Globulin Ratio 1.3 (0.9-2); Albumin Level 3.9 gm/dl (3.4-5.0); Alkaline Phosphatase 84 U/L (34-104); Anion Gap 9 (3-11); Aspartate Aminotransferase 9 U/L (13-39); BUN Creatinine Ratio 18.8 (10-20); Bilirubin,Total 0.7 mg/dl (0.2-1.0); Blood Urea Nitrogen 22 mg/dl (6-23); Calcium 9.6 mg/dl (8.5-10.1); Carbon Dioxide 24 mmol/L (21-32); Chloride 108 mmol/L (98-107); Est GFR (African American) 53.2 ml/min; Est GFR (Non-African American) 45.9 ml/min; Globulin 3.1 gm/dl (2.5-4.0); Glucose 118 mg/dl (70-99(Fasting)); Lipase 61 U/L (11-82); Magnesium 2.2 mg/dl (1.7-2.4); Sodium 141 mmol/L (136-145)
[2021-11-18 14:39] LABS: Troponin I High Sensitivity 209.8 pg/ml (0-14)
[2021-11-18 14:40] LABS: Influenza A virus by PCR Negative (Neg); Influenza B virus by PCR Negative (Neg); RSV by PCR Negative (Neg); SARS CoV2 RNA(COVID-19) InHosp NEGATIVE (Negative)
[2021-11-18] MEDS ORDERED: OPTIRAY 300 500mL IV ONE (14:51)
--- NOTE | 2021-11-18 15:05 | CT Scan Report ---
CT head/brain wo con CLINICAL HISTORY: 76 years-old Female with confusion. Acutely altered mental status TECHNIQUE: Multiple axial CT images of the head were obtained without contrast. A dose lowering tech nique was utilized adhering to the principles of ALARA. COMPARISON: Head CT 09/22/2011 FINDINGS: No acute intracranial hemorrhage, midline shift, intracranial mass, hydrocephalus, territorial ischem ia or abnormal extra-axial collection. Chronic left occipital, left cerebellar and bilateral frontal parietal infarcts with progressive encephalomalacia compared to the prior exam. Chronic lacunar infar cts of the right cerebellar hemisphere. Age-related involutional changes. White matter hypodensities suggestive of chronic microvascular ischemic disease. The calvarium is intact. Prior bilateral lens repair. The paranasal sinuses, mastoid air cells, and m iddle ear cavities are clear. IMPRESSION: Chronic findings as above without acute intracranial abnormality. ACT 112: Negative or not required by law. The above report was generated using voice recognition software. It may contain grammatical, syntax o r spelling errors. Electronically signed by: Des England M.D. 11/18/2021 3:03 PM
--- NOTE | 2021-11-18 15:14 | CT Scan Report ---
CT ANGIOGRAM OF THE CHEST CLINICAL HISTORY: Dyspnea. Recent surgery. COMPARISON STUDY: Chest x-ray dated 10/15/2021. TECHNIQUE: Following the IV administration of 113 cc of Optiray 300, CT angiogram of the chest was pe rformed from the upper abdomen to the thoracic inlet utilizing the pulmonary embolus protocol. Images are reviewed in the axial, sagittal, and coronal planes. 3-D MIPS images are created and assessed. I V contrast was administered without complication. A dose lowering technique was utilized adhering to the principles of ALARA. CT DOSE: 1428.12 mGy.cm FINDINGS: Thyroid: Imaged portions of the thyroid gland are normal in size and attenuation. Thoracic aorta: There is a sclerotic calcification of the thoracic aorta, which is normal in caliber and demonstrates bovine variant arch anatomy. No dissection is seen. Pulmonary vasculature: The pulmonary trunk is normal in caliber. There is extensive bilateral pulmona ry embolus. Thrombus is seen in the distal right main pulmonary artery, extending into the upper, mid dle, and lower lobe pulmonary arteries into segmental and subsegmental branches. There is also thromb us within the distal left main pulmonary artery. This extends into the upper and lower lobe pulmonary arteries into segmental and subsegmental branches. Heart: The heart is mildly enlarged noting trace pericardial effusion. There are coronary artery calc ifications. The mitral annulus is densely calcified. Lungs and pleural spaces: Subpleural foci of consolidation in the left lower lobe likely represent de veloping pulmonary infarcts. There is trace left pleural effusion. Foci of air trapping are seen thro ughout both lungs. There is bibasilar scarring/atelectasis. A 4 mm left upper lobe pulmonary nodule i s seen on image #217. A 3 mm pleural-based nodule in the right upper lobe as seen on image #238. Mediastinum: Prominent mediastinal lymph nodes measure up to 9 mm short axis. These are likely reacti ve. Yesy: Clear. Axillae: There is no axillary lymphadenopathy. Upper abdomen: There is a small hiatal hernia. The gallbladder is surgically absent. 2 left adrenal a denomas measure up to 3.5 cm. Skeletal structures: The skeletal structures are osteopenic. Spondylotic change is noted in the thora cic spine. No lytic or blastic bony lesions are seen. IMPRESSION: 1. Extensive bilateral pulmonary embolus as above. 2. Foci of subpleural consolidation at the left lung base likely representing developing pulmonary in farcts. Clinical correlation will be required. 3. Trace left pleural effusion. 4. Cardiomegaly. 5. There is a 4 mm left upper lobe pulmonary nodule. This is pathologically indeterminate and can be followed as per the Fleischner criteria if clinically warranted. 6. Additional findings as above. Please refer to below summary of Fleischner criteria recommendations for follow-up of incidental CT n odules (Bindu Russ, Guidelines for management of small pulmonary nodules detected on CT scans: A sta tement from the Fleischner Society, Radiology 237: [phone].) SOLID NODULES Solitary nodule size: <6 mm * low risk patients: no follow-up needed * high risk patients: optional CT at 12 months Solitary nodule size: 6-8 mm * low risk patients: follow-up at 6-12 months, then consider further follow-up at 18-24 months * high risk patients: initial follow-up CT at 6-12 months and then at 18-24 months if no change Solitary nodule size: >8 mm * either low or high risk patients - consider follow-up CT at 3 months, and/or CT-PET, and/or biopsy Multiple nodules size: <6 mm * low risk patients: no routine follow-up * high risk patients: optional CT at 12 months Multiple nodules size: 6-8 mm * low risk patients: follow-up at 3-6 months, then consider further follow-up at 18-24 months * high risk patients: follow-up at 3-6 months, then at 18-24 months if no change Multiple nodules size: >8 mm * low risk patients: follow-up at 3-6 months, then consider further follow-up at 18-24 months * high risk patients: follow-up at 3-6 months, then at 18-24 months if no change Note: newly detected indeterminate nodule in persons 35 years of age or older. * low risk patients: minimal or absent history of smoking and/or other known risk factors * high risk patients: history of smoking or of other known risk factors (e.g. first degree relative with lung cancer, or exposure to asbestos, radon, uranium) * if a nodule up to 8 mm is partly solid or is ground glass further follow-up is required after 24 m onths to exclude possible slow growing adenocarcinoma (JUDITH) SUBSOLID NODULES Solitary pure ground-glass nodule * nodule size <6 mm - no CT follow-up required * nodule size >=6 mm - follow-up CT at 6-12 months, then every 2 years until 5 years Solitary part-solid nodule * nodule size <6 mm - no CT follow-up required * nodule size >=6 mm - follow-up CT at 3-6 months. If unchanged, and solid component remains <6 mm, then annual follow-up for 5 years Multiple subsolid nodules * nodule size <6 mm - follow-up CT at 3-6 months, consider further follow-up at 2 and 4 years if sta ble * nodule size >=6 mm - follow-up CT at 3-6 months, subsequent management based on the most suspiciou s nodule(s) ACT 112: Negative or not required by law. Electronically signed by: Nikolas Dobson M.D. 11/18/2021 3:12 PM
[2021-11-18] MEDS ORDERED: Heparin IV Adult Wt-Based Standard WITH Bolus Protocol IV STA (15:32)
[2021-11-18] MEDS ORDERED: Heparin IV Adult Wt-Based Standard WITH Bolus Protocol IV SCH ×2 (15:45)
[2021-11-18] MEDS ORDERED: HEPARIN SOD (PORCINE) 1000 UNIT/ML IV ONE ×2 (15:47→16:00)
[2021-11-18] MEDS: HEPARIN SODIUM/DEXTROSE 25,000 UNITS/500 ML BAG IV SCH (15:59)
--- NOTE | 2021-11-18 16:03 | Electrocardiogram Report ---
Test Reason : Blood Pressure : / mmHG Vent. Rate : 099 BPM Atrial Rate : 099 BPM P-R Int : 140 ms QRS Dur : 090 ms QT Int : 350 ms P-R-T Axes : 017 -26 -11 degrees QTc Int : 449 ms Normal sinus rhythm with sinus arrhythmia Old Inferior infarct (cited on or before 12-JAN-2017) Old Anterior infarct (cited on or before 15-OCT-2021) Abnormal ECG When compared with ECG of 15-OCT-2021 09:42, Premature supraventricular complexes are no longer Present Confirmed by Edwin Maciel ([id number]) on 11/18/2021 4:02:48 PM Referred By: REFERRED SELF Confirmed By:Edwin Maciel
--- NOTE | 2021-11-18 16:13 | History & Physical Report ---
Date of Service November 18, 2021 Assessment & Plan (1) Bilateral pulmonary embolism: Plan: Likely provoked due to recent surgery and immobilization - Admit to PCU - Heparin gtt started in the ED - will continue and eventually transition to DOACs - Check ECHO to evaluate for right heart strain - Check bilateral LE venous duplex (2) Hypoxia: Plan: Due to #1 - continue for now but will wean as tolerated (3) Elevated troponin: Plan: Likely related to #1 - Monitor in PCU - ECHO - EKG in AM - Trend troponin (4) Type 2 diabetes mellitus: Plan: Holding outpatient regimen while admitted - Insulin sliding scale - A1c in AM - Diabetic diet and BSG (5) Hypertension: Plan: Continue outpatient meds (6) Chronic kidney disease (CKD): Plan: Follow labs (7) Hyperlipidemia: Plan: Continue statin Plan Pt seen and reviewed with attending physician, Dr. Hsu. Plan of care discussed and as outlined above. 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 Pt was admitted 10/15-10/18/21 due to trimalleolar ankle fracture dislocation from a fall at home. She underwent ORIF on 10/16/21. She was sent to rehab after admission and was discharged home about a week and a half ago per . Since being home, she has overall done well although they report home health has only come three times and she has not been receiving PT consistently. She ambulates with assistance and a rolling walker but only short distances. Earlier this week, she and her went on a 1 1/2 hour car ride. Yesterday, they went to [facility] where she was sitting in a wheelchair for several hours. When they got home yesterday, she was very pale and fatigued. She complained of generalized pain but could not localize it. There was a question of mild confusion. She fell asleep for a few hours and when she woke up late last evening she seemed back to her baseline so they decided not to come to the ED. However, this morning, she was evaluated by the PA for [facility] for intake and was noted to be weak and hypoxic so she was referred to the ED for evaluation. Pt denies chest pain, palpitations, dizzi ness, syncope, RAMEY, N/V, abdominal pain, calf pain, LE swelling. She is fatigued. She is currently on oxygen but reports this is atypical for her as she does not require at baseline. Denies prior history of clot. Allergies Allergy/AdvReac Type Severity Reaction Status Date / Time No Known Allergies Allergy Verified 11/03/21 09:04 Home Medications Medication Instructions Recorded Confirmed Type aspirin 81 mg tablet,delayed 81 mg PO DAILY 11/18/21 11/18/21 History release atorvastatin 40 mg tablet 40 mg PO DAILY 11/18/21 11/18/21 History carvedilol 12.5 mg tablet 12.5 mg PO BID 11/18/21 11/18/21 History dulaglutide 0.75 mg/0.5 mL 0.75 mg subcut WK 11/18/21 11/18/21 History subcutaneous pen injector (Trulicity) empagliflozin 25 mg tablet 25 mg PO DAILY 11/18/21 11/18/21 History glipizide 10 mg tablet, extended 10 mg PO DAILY 11/18/21 11/18/21 History release 24 hr lisinopril 40 mg tablet 40 mg PO DAILY 11/18/21 11/18/21 History lorazepam 0.5 mg tablet 0.5 mg PO HS PRN Insomnia 11/18/21 11/18/21 History multivit with 1 tab PO DAILY 11/18/21 11/18/21 History vkcnwrca-uwou-GY-lutein 8 mg iron-400 mcg-300 mcg tablet (Centrum Silver Women) Past Med/Surg History Medical History (Updated 11/19/21 @ 09:43 by Rubén Feliz MD) Chronic kidney disease (CKD) Diabetic retinopathy History of cerebrovascular accident Hyperlipidemia Hypertension Major depressive disorder Trimalleolar fracture of ankle, closed Type 2 diabetes mellitus Surgical History History of ankle surgery History of section History of cholecystectomy History of total knee arthroplasty Family History Mother Ovarian cancer Parkinson disease Social History Smoking Status: Never smoker Hx Alcohol Use: No Hx Substance Use: No Preferred Language: Irish Communication Ability: Effective 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 Beliefs That Will Affect Care: None marital status: Current Living Situation: Spouse and Family How many Children do You have: 1 Other Information That Helps Us Care for You: No Feels Safe at Home: Yes Assistive Devices: Cane, Walker and Wheelchair Review of Systems Review of Systems: All systems reviewed & are unremarkable except as noted in HPI & below Constitutional: + fatigue; no fever and no chills Eyes: no diplopia Ear, Nose, Mouth, Throat: no nasal congestion and no sore throat Respiratory: no cough, no dyspnea and no hemoptysis Cardiovascular: no chest pain, no palpitations, no syncope and no edema Gastrointestinal: + constipation (small stool yesterday but otherwise no significant BM for several days); no nausea, no vomiting, no diarrhea/loose stools and no blood in stools Genitourinary: no dysuria and no hematuria Musculoskeletal: no back pain and no neck pain Integumentary: no rash and no yellowing of the skin Neurologic: + generalized weakness; no seizure-like activity, no dizziness and no headache(s) Psychiatric: + depression and + anxiety Reports loss of her daughter due to COVID almost one year ago Physical Exam Constitutional: well developed and well nourished; no acute distress Eyes: + anicteric sclerae ENMT: external ear and nose normal, oropharynx normal Neck: trachea midline Respiratory: no respiratory distress and no labored breathing Auscultation: lungs clear to auscultation bilaterally; no rales, no rhonchi and no wheezes Cardiovascular: Rate/Rhythm: regular rate and regular rhythm Vessels: radial pulses present Extremities: no edema (limited visibility of RLE due to cast in place) Gastrointestinal (Abdomen): Inspection/Auscultation: normal bowel sounds; abdomen not distended Percussion/Palpation: abdomen soft; abdomen nontender Musculoskeletal: Head/Neck/Chest: normocephalic, head atraumatic and neck supple right ankle with cast in place and overlying walking boot Skin: no jaundice Neurologic: moves all extremities; no focal motor deficits Psychiatric: Orientation: alert and oriented x 3 tearful when talking about her daughter who but otherwise euthymic affect Results & Data Results & Data ([facility]) Vital Signs (Past 12 Hours) Vital Signs Temp Pulse Pulse Resp BP BP Pulse Ox 11/18/21 16:00 91 H 18 160/80 H 96 11/18/21 15:05 36.8 C 81 18 132/82 95 11/18/21 11:44 2 L 11/18/21 13:57 82 20 123/68 93 11/18/21 12:03 11/18/21 11:44 36.9 C 87 18 137/75 89 L O2 Del Method O2 Flow Rate 11/18/21 16:00 Nasal Cannula 2 11/18/21 15:05 Room Air 11/18/21 11:44 Nasal Cannula 11/18/21 13:57 Room Air 11/18/21 12:03 Room Air 11/18/21 11:44 Room Air Laboratory Results Laboratory Results - last 24 hr 11/18/21 11/18/21 11/18/21 13:31 13:35 13:35 WBC 13.67 H RBC 4.18 Hgb 12.4 Hct 39.2 MCV 93.8 MCH 29.7 MCHC 31.6 L RDW Std Deviation 49.5 H RDW Coeff of Dodie 14.5 Plt Count 222 MPV 9.4 Immature Gran % (Auto) 0.7 Neut % (Auto) 67.6 Lymph % (Auto) 18.0 [place] % (Auto) 10.2 Eos % (Auto) 3.1 Baso % (Auto) 0.4 Neut # (Auto) 9.24 H Lymph # (Auto) 2.46 [place] # (Auto) 1.39 H Eos # (Auto) 0.43 Baso # (Auto) 0.05 Immature Gran # (Auto) 0.10 H PT 10.7 INR 1.0 APTT PTT Ratio Sodium Potassium Chloride Carbon Dioxide Anion Gap BUN Creatinine Est Cr Clr Drug Dosing Est GFR ( Amer) Est GFR (Non-Af Amer) BUN/Creatinine Ratio Glucose Calcium Magnesium Total Bilirubin AST ALT Alkaline Phosphatase Troponin I High Sens Total Protein Albumin Globulin Albumin/Globulin Ratio Lipase SARS-CoV-2 (PCR) NEGATIVE Influenza Type A (PCR) Negative Influenza Type B (PCR) Negative RSV (RT-PCR) Negative 11/18/21 11/18/21 13:35 13:55 WBC RBC Hgb Hct MCV MCH MCHC RDW Std Deviation RDW Coeff of Dodie Plt Count MPV Immature Gran % (Auto) Neut % (Auto) Lymph % (Auto) [place] % (Auto) Eos % (Auto) Baso % (Auto) Neut # (Auto) Lymph # (Auto) [place] # (Auto) Eos # (Auto) Baso # (Auto) Immature Gran # (Auto) PT INR APTT Pending PTT Ratio Pending Sodium 141 Potassium 4.0 Chloride 108 H Carbon Dioxide 24 Anion Gap 9 BUN 22 Creatinine 1.17 Est Cr Clr Drug Dosing Not Reportable Est GFR ( Amer) 53.2 Est GFR (Non-Af Amer) 45.9 BUN/Creatinine Ratio 18.8 Glucose 118 H Calcium 9.6 Magnesium 2.2 Total Bilirubin 0.7 AST 9 L ALT 7 Alkaline Phosphatase 84 Troponin I High Sens 209.8 H* Total Protein 7.0 Albumin 3.9 Globulin 3.1 Albumin/Globulin Ratio 1.3 Lipase 61 SARS-CoV-2 (PCR) Influenza Type A (PCR) Influenza Type B (PCR) RSV (RT-PCR) Diagnostic Findings CT Head 11/18/21 - IMPRESSION: Chronic findings as above without acute intracranial abnormality. Chest CTA 11/18/21 - IMPRESSION: 1. Extensive bilateral pulmonary embolus as above. 2. Foci of subpleural consolidation at the left lung base likely representing developing pulmonary infarcts. Clinical correlation will be required. 3. Trace left pleural effusion. 4. Cardiomegaly. 5. There is a 4 mm left upper lobe pulmonary nodule. This is pathologically indeterminate and can be followed as per the Fleischner criteria if clinically warranted. 6. Additional findings as above. Medications Administered Heparin Sodium (Porcine) (Heparin Sod (Porcine) 1000 Unit/Ml) 5,000 units IV NOW ONE Stop: 11/18/21 16:01 Last Admin: 11/18/21 15:56 Dose: 5,000 units Documented By: QGV Co-signed By: BRINA Heparin Sodium/Dextrose (Heparin Sodium/Dextrose) 25,000 units in 500 mls @ 24 mls/hr IV .[id number] [facility]; Protocol Stop: 12/18/21 15:59 Last Admin: 11/18/21 15:59 Dose: 1,200 units/hr, 24 mls/hr Documented By: BRINA Co-signed By: QGV Ioversol (Optiray 300 500ml) 113 ml IV ONCE ONE Stop: 11/18/21 14:52 Last Admin: 11/18/21 14:52 Dose: 113 ml Documented By: CELINA Discontinued Medications Heparin Sodium (Porcine) (Heparin Sod (Porcine) 1000 Unit/Ml) 1 units IV NOW ONE Stop: 11/18/21 15:48 Last Admin: 11/18/21 16:11 Dose: Not Given Documented By: BRINA Heparin Sodium/Dextrose (Heparin Iv Adult Wt-Based Standard With Bolus Protocol) 1 each IV NOW STA; Protocol Stop: 11/18/21 15:33 Last Admin: 11/18/21 16:11 Dose: Not Given Documented By: BRINA Code Status & VTE Plan VTE Prophylaxis Plan VTE Prophylaxis will be ordered: Yes Supervising Physician Co-Signing Physician Notes Patient was seen and examined independently at bedside. Chart reviewed. Case discussed with Stephanie Cha PA-C and agree with the documentation above. In summary, this is a 76 year old female with recent ankle fracture a month ago s/p surgery and on cast, s/p rehab stay for 3 weeks and discharged home a week ago presented to the ED with hypoxia. Denies any chest pain or shortness of breath. Found to have bilateral PE in CTA chest with hypoxia. 1st episode of VTE. Likely provoked in setting of recent surgery and relative immobilization and hence no need to do detailed work like hypercoagulability test. Started on heparin drip in ED. Agree with PCU on tele, continue heparin drip, trend trop, check US LE and echo. Transition to DOACs when stable. Will likely need 2 step O2 eval. Discussed in detail at bedside with patient and . Rest as per the note above. On exam: General: Sitting comfortably in bed, not in distress, on NC Chest: Clear breath sounds bilaterally with basilar crackles CVS: Regular rate and rhythm, normal heart sounds, no murmur Abdomen: Soft, non tender, not distended, normal bowel sounds Neuro: Awake, alert, oriented, conversing well, non focal Extremities: RLE with cast, no edema or tenderness of bilateral LE
[2021-11-18 16:22] LABS: Partial Thromboplastin Time 26.9 Seconds (21.0-31.0)
[2021-11-18] MEDS ORDERED: ACETAMINOPHEN 325 MG TAB PO PRN (17:49)
[2021-11-18] MEDS ORDERED: CARBOHYDRATES FOR HYPOGLYCEMIA PO PRN (17:49)
[2021-11-18] MEDS ORDERED: GLUCOSE 10 TAB/TUBE PO PRN (17:49)
[2021-11-18] MEDS ORDERED: GLUCAGON FOR INJ 1 MG VIAL SQ PRN (17:49)
[2021-11-18] MEDS ORDERED: DEXTROSE 50% 50 ML SYRINGE IV PRN (17:49)
[2021-11-18] MEDS ORDERED: GLUCOSE 40% GEL 15 GM TUBE PO PRN (17:49)
[2021-11-18] MEDS: INSULIN ASPART PER UNIT SC SCH (20:28)
[2021-11-18] MEDS: carvediloL 12.5 MG TAB PO SCH (21:29)
[2021-11-18 23:46] LABS: Partial Thromboplastin Time 55.2 Seconds (21.0-31.0)
--- NOTE | 2021-11-19 06:29 | Ultrasound Report ---
ULTRASOUND BILATERAL LOWER EXTREMITY VENOUS CLINICAL HISTORY: Pulmonary embolus. COMPARISON STUDY: No priors. TECHNIQUE: Real-time, grayscale, and color Doppler sonography of the deep veins of the right and left lower extremity was performed from the inguinal crease to the calf. Compression and augmentation wer e utilized. FINDINGS: Right lower extremity: There is no sonographic evidence of above knee deep venous thrombosis in the r ight lower extremity. The common femoral, superficial femoral, and popliteal veins are patent and nor romina compressible. The greater saphenous vein and the profunda femoris vein at the junction with the common femoral vein are clear. The calf vessels cannot be assessed due to overlying cast material. Left lower extremity: There is occlusive deep venous thrombosis in the left popliteal vein. There is also thrombus in the calf and the posterior tibial veins and one of the peroneal veins. The common fe moral and superficial femoral veins Are patent and normally compressible. The greater saphenous vein and the profunda femoris vein at the junction with the common femoral vein are clear. A small complex popliteal cyst measures 4.1 x 1.0 x 2.1 cm. IMPRESSION: 1. There is occlusive deep venous thrombosis in the left popliteal vein and calf. 2. There is no sonographic evidence of above-knee deep venous thrombosis in the right lower extremity . 3. Right calf vessels could not be evaluated due to a cast. 4. Small left-sided popliteal cyst. ACT 112: Negative or not required by law. Electronically signed by: Nikolas Dobson M.D. 11/19/2021 6:28 AM
[2021-11-19 06:57] LABS: Basophils # (auto) 0.08 K/uL (0-0.2); Basophils % (auto) 0.7 %; Eosinophils # (auto) 0.39 K/uL (0-0.50); Eosinophils % (auto) 3.3 %; Hematocrit (blood only) 34.5 % (34.1-44.9); Hemoglobin 11.2 g/dl (12.0-16.0); Immature Granulocytes # (auto) 0.11 K/uL (0.00-0.02); Immature Granulocytes % (auto) 0.9 %; Lymphocytes # (auto) 1.52 K/uL (1.2-3.4); Mean Corpuscular Hemoglobin 29.7 pg (25.0-34.0); Mean Corpuscular Hgb Conc 32.5 g/dL (32.0-36.0); Mean Corpuscular Volume 91.5 fL (80.0-100.0); Mean Platelet Volume 9.5 fL (9.4-12.3); Monocytes # (auto) 1.15 K/uL (0.24-0.82); Monocytes % (auto) 9.8 %; Neutrophils # (auto) 8.46 K/uL (1.4-6.5); Neutrophils % (auto) 72.3 %; Platelet Count 193 K/uL (130-400); RDW Coefficient of Variation 14.1 % (11.5-14.5); RDW Standard Deviation 47.2 fL (36.4-46.3); Red Blood Count 3.77 M/uL (3.93-5.22); White Blood Count 11.71 K/ul (4.8-10.8)
[2021-11-19 07:19] LABS: BUN Creatinine Ratio 18.7 (10-20); Calcium 8.8 mg/dl (8.5-10.1); Est GFR (Non-African American) 62.2 ml/min
[2021-11-19 07:37] LABS: Partial Thromboplastin Ratio 1.7
[2021-11-19 07:43] LABS: Partial Thromboplastin Time 45.7 Seconds (21.0-31.0)
[2021-11-19 07:57] LABS: Estimated Average Glucose 203 mg/dl; Hemoglobin A1C 8.7 % (4.5-5.6)
[2021-11-19] MEDS: INSULIN ASPART PER UNIT SC SCH ×4 (08:32→21:23)
[2021-11-19] MEDS ORDERED: DOCUSATE SODIUM 100 MG CAP PO SCH (09:00)
[2021-11-19] MEDS: lisinopril 40 MG TAB PO SCH (09:08)
[2021-11-19] MEDS: ATORVASTATIN 40 MG TAB PO SCH (09:08)
[2021-11-19] MEDS: carvediloL 12.5 MG TAB PO SCH ×2 (09:08→20:11)
--- NOTE | 2021-11-19 09:44 | Orthopedic Consultation ---
Date of Service November 19, 2021 Assessment & Plan (1) Trimalleolar fracture of ankle, closed: Echo exam looks pretty good today patient not having any pain. She is diabetic which is a concern. This medial wound was pretty tenuous but looks to be healing. We are going to take rather cast and get a walking boot. Routine wound care just dressings to the right ankle including Carmelo bandage. She can weight-bear as tolerated in the boot. That she should wear the boot anytime weightbearing. Does not need to wear to sleep. I need to follow her back in about 2 weeks. Any orthopedic questions can be directly [phone] History of Present Illness Reason for Consultation: . For and 1/2 weeks out from ORIF of a trimalleolar ankle fracture dislocation. Requesting Physician: . Attending Physician: Maxx Hsu MD . Is a 76-year-old female with multiple medical comorbidities who is now almost 5 weeks out from ORIF of very severe right ankle trimalleolar ankle fracture dislocation. She had this fixed over the weekend just about 5 weeks ago. Is done pretty well. As she had a very tenuous soft tissue envelope medially. She has been in a cast for the past 2 weeks. She been weightbearing on it. She denies any pain. She has recently been admitted for bilateral pulmonary emboli. Once again no real ankle pain. She says she has been walking on it. Allergies Allergy/AdvReac Type Severity Reaction Status Date / Time No Known Allergies Allergy Verified 11/03/21 09:04 Home Medications Medication Instructions Recorded Confirmed Type aspirin 81 mg tablet,delayed 81 mg PO DAILY 11/18/21 11/18/21 History release atorvastatin 40 mg tablet 40 mg PO DAILY 11/18/21 11/18/21 History carvedilol 12.5 mg tablet 12.5 mg PO BID 11/18/21 11/18/21 History dulaglutide 0.75 mg/0.5 mL 0.75 mg subcut WK 11/18/21 11/18/21 History subcutaneous pen injector (Trulicity) empagliflozin 25 mg tablet 25 mg PO DAILY 11/18/21 11/18/21 History glipizide 10 mg tablet, extended 10 mg PO DAILY 11/18/21 11/18/21 History release 24 hr lisinopril 40 mg tablet 40 mg PO DAILY 11/18/21 11/18/21 History lorazepam 0.5 mg tablet 0.5 mg PO HS PRN Insomnia 11/18/21 11/18/21 History multivit with 1 tab PO DAILY 11/18/21 11/18/21 History hzicoier-jnxe-MD-lutein 8 mg iron-400 mcg-300 mcg tablet (Centrum Silver Women) Past Med/Surg History Medical History (Updated 11/19/21 @ 09:43 by Rubén Feliz MD) Chronic kidney disease (CKD) Diabetic retinopathy History of cerebrovascular accident Hyperlipidemia Hypertension Major depressive disorder Trimalleolar fracture of ankle, closed Type 2 diabetes mellitus Surgical History History of ankle surgery History of section History of cholecystectomy History of total knee arthroplasty Family History Mother Ovarian cancer Parkinson disease Social History Smoking Status: Never smoker Hx Alcohol Use: No Hx Substance Use: No Preferred Language: Samoan Communication Ability: Effective Banquet Coordinator Required: No Beliefs That Will Affect Care: None marital status: Current Living Situation: Spouse and Family How many Children do You have: 1 Other Information That Helps Us Care for You: No Feels Safe at Home: Yes Assistive Devices: Cane, Walker and Wheelchair Review of Systems All systems reviewed & are unremarkable except as noted in HPI & below. Physical Exam . Sickle examination of the right ankle reveals the cast is fitting well. There is no signs of problems. I did remove the cast to look at her wounds. Both wounds look to be healing. She is got a little scab over the medial wound. There is no signs of infection. Fairly minimal swelling. She can dorsiflex and plantarflex her toes appropriately. Results & Data Results & Data Laboratory Results . Diagnostic Findings . PG Care Time/CCT Total # of Minutes Spent Total Time Spent with Patient: Total time spent is greater than 50% in coordination of care (as documented) at patient's floor/unit and/or counseling patient: Coding Level of Care Code None Diagnoses Trimalleolar fracture of ankle, closed S82.853A
[2021-11-19] MEDS: HEPARIN SODIUM/DEXTROSE 25,000 UNITS/500 ML BAG IV SCH (12:11)
[2021-11-19] MEDS ORDERED: LORazepam 0.5 MG TAB PO PRN (12:49)
--- NOTE | 2021-11-19 12:52 | Hospitalist Progress Note ---
Date of Service November 19, 2021 Assessment & Plan (1) Bilateral pulmonary embolism: (2) Hypoxia: (3) Elevated troponin: (4) Type 2 diabetes mellitus: (5) Hypertension: (6) Chronic kidney disease (CKD): (7) Hyperlipidemia: Plan 76 year old female with recent ankle fracture a month ago s/p surgery and on cast, s/p rehab stay for 3 weeks and discharged home a week ago presented to the ED with hypoxia. Denies any chest pain or shortness of breath. Found to have bilateral PE and acute DVT LLE. CTA chest 1. Extensive bilateral pulmonary embolus as above (Thrombus is seen in the distal right main pulmonary artery, extending into the upper, middle, and lower lobe pulmonary arteries into segmental and subsegmental branches. There is also thrombus within the distal left main pulmonary artery. This extends into the upper and lower lobe pulmonary arteries into segmental and subsegmental branches) 2. Foci of subpleural consolidation at the left lung base likely representing developing pulmonary infarcts. Clinical correlation will be required. 3. Trace left pleural effusion. 4. Cardiomegaly. 5. There is a 4 mm left upper lobe pulmonary nodule. This is pathologically indeterminate and can be followed as per the Fleischner criteria if clinically warranted. DVT B/L LE 1. There is occlusive deep venous thrombosis in the left popliteal vein and calf. 2. There is no sonographic evidence of above-knee deep venous thrombosis in the right lower extremity. 3. Right calf vessels could not be evaluated due to a cast. 4. Small left-sided popliteal cyst. Acute PE without cor pulmonale, acute DVT LLE - 1st episode, like provoked in setting of recent surgery and relative immobility- hence will not order hypercoag test - hemodynamically stable - Continue heparin drip, will change to eliquis likely tomorrow or later tonight - CM to [facility] check for DOACs - Likely 3-6 months of anticoag should be enough Hypoxia- from above. on 2 L NC. Continue to wean down as tolerated. Might need 2 step O2 eval at discharge Elevated trop- demand ischemia from above. 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 hold OP regimen- glipizide, empagliflozin. Continue SSI HTN- continue lisinopril, coreg H/o CVA- on ASA, statin Recent right ankle fracture s/p ORIF 10/16 - seen by ortho- cast removed and use walking boot - routine wound care- just dressings to right ankle including Carmelo bandage - WBAT in the boot, no need to wear at night. - OP follow up in 2 weeks DVT ppx- heparin drip Dispo- on heparin drip for PE. Needs 2 step O2 eval and PT eval prior to discharge. Might need rehab. Admission and Anticipated Discharge Date Admission Date: November 18, 2021 Subjective Feels fine. Denies any CP, SOB, N/V, dizziness. Her cast was removed today. Denies any leg pain or swelling. Physical Exam Physical Exam: General: Lying comfortably in bed, not in distress, on NC 2 L Chest: Clear breath sounds bilaterally with basilar crackles CVS: Regular rate and rhythm, normal heart sounds, no murmur Abdomen: Soft, non tender, not distended, normal bowel sounds Neuro: Awake, alert, oriented, conversing well, non focal Extremities: No edema or tenderness. RLE with dressing. Results & Data Results & Data ([facility]) Vital Signs (Past 12 Hours) Vital Signs Temp Pulse Pulse Resp BP Pulse Ox O2 Del Method 11/19/21 11:44 36.9 C 79 22 131/77 96 Nasal Cannula 11/19/21 09:44 Nasal Cannula 11/19/21 07:46 37.2 C 76 16 122/79 96 Nasal Cannula 11/19/21 06:43 73 11/19/21 05:18 78 11/19/21 03:14 36.8 C 86 18 142/81 H 95 Nasal Cannula O2 Flow Rate 11/19/21 11:44 2 11/19/21 09:44 2 11/19/21 07:46 2 11/19/21 06:43 11/19/21 05:18 11/19/21 03:14 2.0 Laboratory Results Short CBC 11/18/21 11/19/21 Range/Units 13:35 05:38 WBC 13.67 H 11.71 H (4.8-10.8) K/ul Hgb 12.4 11.2 L (12.0-16.0) g/dl Hct 39.2 34.5 (34.1-44.9) % Plt Count 222 193 (130-400) K/uL BMP 11/18/21 11/19/21 13:35 05:38 Sodium 141 141 Potassium 4.0 4.0 Chloride 108 H 110 H Carbon Dioxide 24 24 BUN 22 17 Creatinine 1.17 0.91 Glucose 118 H 107 H Calcium 9.6 8.8 Liver Function 11/18/21 Range/Units 13:35 Total Bilirubin 0.7 (0.2-1.0) mg/dl AST 9 L (13-39) U/L ALT 7 (7-52) U/L Alkaline Phosphatase 84 (34-104) U/L Albumin 3.9 (3.4-5.0) gm/dl Diagnostic Findings Venous Doppler Study 11/18/21 17:49 ULTRASOUND BILATERAL LOWER EXTREMITY VENOUS CLINICAL HISTORY: Pulmonary embolus. COMPARISON STUDY: No priors. TECHNIQUE: Real-time, grayscale, and color Doppler sonography of the deep veins of the right and left lower extremity was performed from the inguinal crease to the calf. Compression and augmentation were utilized. FINDINGS: Right lower extremity: There is no sonographic evidence of above knee deep venous thrombosis in the right lower extremity. The common femoral, superficial femoral, and popliteal veins are patent and normally compressible. The greater saphenous vein and the profunda femoris vein at the junction with the common femoral vein are clear. The calf vessels cannot be assessed due to overlying cast material. Left lower extremity: There is occlusive deep venous thrombosis in the left popliteal vein. There is also thrombus in the calf and the posterior tibial veins and one of the peroneal veins. The common femoral and superficial femoral veins Are patent and normally compressible. The greater saphenous vein and the profunda femoris vein at the junction with the common femoral vein are clear. A small complex popliteal cyst measures 4.1 x 1.0 x 2.1 cm. IMPRESSION: 1. There is occlusive deep venous thrombosis in the left popliteal vein and calf. 2. There is no sonographic evidence of above-knee deep venous thrombosis in the right lower extremity. 3. Right calf vessels could not be evaluated due to a cast. 4. Small left-sided popliteal cyst. ACT 112: Negative or not required by law. Electronically signed by: Nikolas Dobson M.D. 11/19/2021 6:28 AM Medications Administered Current Inpatient Medications Acetaminophen (Acetaminophen 325 Mg Tab) 650 mg PO Q4H PRN PRN Reason: Pain or Fever Stop: 12/18/21 17:48 Atorvastatin Calcium (Atorvastatin 40 Mg Tab) 40 mg PO DAILY [facility] Stop: 12/19/21 08:59 Last Admin: 11/19/21 09:08 Dose: 40 mg Carvedilol (Carvedilol 12.5 Mg Tab) 12.5 mg PO BID [facility] Stop: 12/18/21 20:59 Last Admin: 11/19/21 09:08 Dose: 12.5 mg Dextrose (Dextrose 50% 50 Ml Syringe) 25 - 50 ml IV UD PRN; Protocol PRN Reason: Hypoglycemia Protocol Stop: 12/18/21 17:48 Docusate Sodium (Docusate Sodium 100 Mg Cap) 100 mg PO DAILY [facility] Stop: 12/19/21 08:59 Last Admin: 11/19/21 09:08 Dose: 100 mg Glucagon (Glucagon For Inj 1 Mg Vial) 1 mg SQ UD PRN; Protocol PRN Reason: Hypoglycemia Protocol Stop: 12/18/21 17:48 Glucose (Glucose 40% Gel 15 Gm Tube) 15 - 30 gm PO UD PRN; Protocol PRN Reason: Hypoglycemia Protocol Stop: 12/18/21 17:48 Glucose (Glucose 10 Tab/Tube) 4 - 8 tab PO UD PRN; Protocol PRN Reason: Hypoglycemia Treatment Stop: 12/18/21 17:48 Heparin Sodium/Dextrose (Heparin Sodium/Dextrose) 25,000 units in 500 mls @ 24 mls/hr IV .[id number] [facility]; Protocol Stop: 12/18/21 15:59 Last Admin: 11/19/21 12:11 Dose: 1,250 units/hr, 25 mls/hr Insulin Aspart (Insulin Aspart Per Unit) 0 units SC ACHS [facility] Stop: 12/18/21 20:59 Last Admin: 11/19/21 12:09 Dose: 1 units Lisinopril (Lisinopril 40 Mg Tab) 40 mg PO DAILY [facility] Stop: 12/19/21 08:59 Last Admin: 11/19/21 09:08 Dose: 40 mg Miscellaneous (Carbohydrates For Hypoglycemia ) 15 - 30 gm PO UD PRN PRN Reason: Hypoglycemia Protocol Stop: 12/18/21 17:48
[2021-11-19 15:38] LABS: Partial Thromboplastin Ratio 1.7
[2021-11-19 15:43] LABS: Partial Thromboplastin Time 48.1 Seconds (21.0-31.0)
[2021-11-19] MEDS: POLYETHYLENE (MIRALAX) 17 GM PACK PO SCH (16:27)
[2021-11-19] MEDS: DOCUSATE SODIUM 100 MG CAP PO SCH (20:11)
[2021-11-20 06:33] LABS: Basophils # (auto) 0.07 K/uL (0-0.2); Basophils % (auto) 0.7 %; Eosinophils # (auto) 0.34 K/uL (0-0.50); Eosinophils % (auto) 3.3 %; Hematocrit (blood only) 34.5 % (34.1-44.9); Immature Granulocytes # (auto) 0.12 K/uL (0.00-0.02); Immature Granulocytes % (auto) 1.2 %; Lymphocytes # (auto) 1.92 K/uL (1.2-3.4); Lymphocytes % (auto) 18.4 %; Mean Corpuscular Hemoglobin 29.6 pg (25.0-34.0); Mean Corpuscular Hgb Conc 31.9 g/dL (32.0-36.0); Mean Corpuscular Volume 92.7 fL (80.0-100.0); Mean Platelet Volume 9.4 fL (9.4-12.3); Monocytes # (auto) 1.01 K/uL (0.24-0.82); Monocytes % (auto) 9.7 %; Neutrophils # (auto) 6.96 K/uL (1.4-6.5); Neutrophils % (auto) 66.7 %; Platelet Count 193 K/uL (130-400); RDW Standard Deviation 47.6 fL (36.4-46.3); Red Blood Count 3.72 M/uL (3.93-5.22); White Blood Count 10.42 K/ul (4.8-10.8)
[2021-11-20 07:05] LABS: Calcium 8.7 mg/dl (8.5-10.1); Creatinine Clr Calc Pharmacy 57.2 ml/min; Est GFR (African American) 68.4 ml/min; Potassium 3.9 mmol/L (3.5-5.1)
[2021-11-20 07:07] LABS: Partial Thromboplastin Ratio 1.7
[2021-11-20 07:09] LABS: Partial Thromboplastin Time 46.1 Seconds (21.0-31.0)
[2021-11-20] MEDS: INSULIN ASPART PER UNIT SC SCH ×4 (07:58→20:21)
[2021-11-20] MEDS: POLYETHYLENE (MIRALAX) 17 GM PACK PO SCH (08:07)
[2021-11-20] MEDS: carvediloL 12.5 MG TAB PO SCH ×2 (08:07→20:23)
[2021-11-20] MEDS: ASPIRIN 81 MG ECTAB PO SCH (08:07)
[2021-11-20] MEDS: DOCUSATE SODIUM 100 MG CAP PO SCH ×2 (08:07→20:23)
[2021-11-20] MEDS: lisinopril 40 MG TAB PO SCH (08:08)
[2021-11-20] MEDS: ATORVASTATIN 40 MG TAB PO SCH (08:08)
[2021-11-20] MEDS: NYSTATIN POWDER 15GM BTL EXT SCH ×2 (08:09→20:23)
[2021-11-20] MEDS: HEPARIN SODIUM/DEXTROSE 25,000 UNITS/500 ML BAG IV SCH (09:01)
--- NOTE | 2021-11-20 11:01 | Hospitalist Progress Note ---
Date of Service November 20, 2021 Assessment & Plan (1) Bilateral pulmonary embolism: (2) Hypoxia: (3) Elevated troponin: (4) Type 2 diabetes mellitus: (5) Hypertension: (6) Chronic kidney disease (CKD): (7) Hyperlipidemia: Plan 76 year old female with recent ankle fracture a month ago s/p surgery and on cast, s/p rehab stay for 3 weeks and discharged home a week ago presented to the ED with hypoxia. Denies any chest pain or shortness of breath. Found to have bilateral PE and acute DVT LLE. CTA chest 1. Extensive bilateral pulmonary embolus as above (Thrombus is seen in the distal right main pulmonary artery, extending into the upper, middle, and lower lobe pulmonary arteries into segmental and subsegmental branches. There is also thrombus within the distal left main pulmonary artery. This extends into the upper and lower lobe pulmonary arteries into segmental and subsegmental branches) 2. Foci of subpleural consolidation at the left lung base likely representing developing pulmonary infarcts. Clinical correlation will be required. 3. Trace left pleural effusion. 4. Cardiomegaly. 5. There is a 4 mm left upper lobe pulmonary nodule. This is pathologically indeterminate and can be followed as per the Fleischner criteria if clinically warranted. DVT B/L LE 1. There is occlusive deep venous thrombosis in the left popliteal vein and calf. 2. There is no sonographic evidence of above-knee deep venous thrombosis in the right lower extremity. 3. Right calf vessels could not be evaluated due to a cast. 4. Small left-sided popliteal cyst. Acute PE without cor pulmonale, acute DVT LLE - 1st episode, like provoked in setting of recent surgery and relative immobility- hence will not order hypercoag test - hemodynamically stable - Continue heparin drip, will change to eliquis tonight - Likely 3-6 months of anticoag should be enough Hypoxia- from above. on 2 L NC. Continue to wean down as tolerated. Might need 2 step O2 eval at discharge Elevated trop- demand ischemia from above. 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 hold OP regimen- glipizide, empagliflozin. Continue SSI HTN- continue lisinopril, coreg H/o CVA- on ASA, statin Recent right ankle fracture s/p ORIF 10/16 - seen by ortho- cast removed and use walking boot - routine wound care- just dressings to right ankle including Carmelo bandage - WBAT in the boot, no need to wear at night. - OP follow up in 2 weeks DVT ppx- heparin drip Dispo- on heparin drip for PE. Needs 2 step O2 eval and PT eval prior to discharge. Might need rehab. Admission and Anticipated Discharge Date Admission Date: November 18, 2021 Subjective Feels fine. Denies any CP, SOB, N/V, dizziness. Appetite okay. No BM yet. PT has not evaluated yet. Physical Exam Physical Exam: General: Lying comfortably in bed, not in distress, on NC 2 L Chest: Clear breath sounds bilaterally with basilar crackles CVS: Regular rate and rhythm, normal heart sounds, no murmur Abdomen: Soft, non tender, not distended, normal bowel sounds Neuro: Awake, alert, oriented, conversing well, non focal Extremities: No edema or tenderness. RLE with dressing. Results & Data Results & Data ([facility]) Vital Signs (Past 12 Hours) Vital Signs Temp Pulse Pulse Resp BP Pulse Ox O2 Del Method 11/20/21 08:40 Nasal Cannula 11/20/21 07:30 37.0 C 71 18 121/71 96 Nasal Cannula 11/20/21 07:09 72 11/20/21 03:44 74 11/20/21 03:10 36.6 C 77 16 123/69 98 Nasal Cannula 11/19/21 23:30 36.8 C 78 16 119/74 95 Nasal Cannula O2 Flow Rate 11/20/21 08:40 2 11/20/21 07:30 2 11/20/21 07:09 11/20/21 03:44 11/20/21 03:10 2 11/19/21 23:30 2 Laboratory Results Short CBC 11/20/21 Range/Units 06:15 WBC 10.42 (4.8-10.8) K/ul Hgb 11.0 L (12.0-16.0) g/dl Hct 34.5 (34.1-44.9) % Plt Count 193 (130-400) K/uL BMP 11/20/21 06:15 Sodium 137 Potassium 3.9 Chloride 107 Carbon Dioxide 24 BUN 19 Creatinine 0.95 Glucose 122 H Calcium 8.7 Medications Administered Current Inpatient Medications Acetaminophen (Acetaminophen 325 Mg Tab) 650 mg PO Q4H PRN PRN Reason: Pain or Fever Stop: 12/18/21 17:48 Aspirin (Aspirin 81 Mg Ectab) 81 mg PO DAILY [facility] Stop: 12/20/21 08:59 Last Admin: 11/20/21 08:07 Dose: 81 mg Atorvastatin Calcium (Atorvastatin 40 Mg Tab) 40 mg PO DAILY [facility] Stop: 12/19/21 08:59 Last Admin: 11/20/21 08:08 Dose: 40 mg Carvedilol (Carvedilol 12.5 Mg Tab) 12.5 mg PO BID [facility] Stop: 12/18/21 20:59 Last Admin: 11/20/21 08:07 Dose: 12.5 mg Dextrose (Dextrose 50% 50 Ml Syringe) 25 - 50 ml IV UD PRN; Protocol PRN Reason: Hypoglycemia Protocol Stop: 12/18/21 17:48 Docusate Sodium (Docusate Sodium 100 Mg Cap) 100 mg PO BID [facility] Stop: 12/19/21 20:59 Last Admin: 11/20/21 08:07 Dose: 100 mg Glucagon (Glucagon For Inj 1 Mg Vial) 1 mg SQ UD PRN; Protocol PRN Reason: Hypoglycemia Protocol Stop: 12/18/21 17:48 Glucose (Glucose 40% Gel 15 Gm Tube) 15 - 30 gm PO UD PRN; Protocol PRN Reason: Hypoglycemia Protocol Stop: 12/18/21 17:48 Glucose (Glucose 10 Tab/Tube) 4 - 8 tab PO UD PRN; Protocol PRN Reason: Hypoglycemia Treatment Stop: 12/18/21 17:48 Heparin Sodium/Dextrose (Heparin Sodium/Dextrose) 25,000 units in 500 mls @ 25 mls/hr IV .Q20H [facility]; Protocol Stop: 12/18/21 15:59 Last Admin: 11/20/21 09:01 Dose: 1,250 units/hr, 25 mls/hr Insulin Aspart (Insulin Aspart Per Unit) 0 units SC ACHS [facility] Stop: 12/18/21 20:59 Last Admin: 11/20/21 07:58 Dose: Not Given Lisinopril (Lisinopril 40 Mg Tab) 40 mg PO DAILY [facility] Stop: 12/19/21 08:59 Last Admin: 11/20/21 08:08 Dose: 40 mg Lorazepam (Lorazepam 0.5 Mg Tab) 0.5 mg PO HS PRN PRN Reason: Insomnia Stop: 12/19/21 12:48 Miscellaneous (Carbohydrates For Hypoglycemia ) 15 - 30 gm PO UD PRN PRN Reason: Hypoglycemia Protocol Stop: 12/18/21 17:48 Nystatin (Nystatin Powder 15gm Btl) 1 appln EXT BID [facility] Stop: 12/20/21 06:34 Last Admin: 11/20/21 08:09 Dose: 1 appln Polyethylene Glycol (Polyethylene (Miralax) 17 Gm Pack) 17 gm PO DAILY [facility] Stop: 12/19/21 14:59 Last Admin: 11/20/21 08:07 Dose: 17 gm
[2021-11-20] MEDS: APIXABAN 5 MG TABLET PO SCH (20:23)
[2021-11-20 21:17] LABS: Partial Thromboplastin Ratio 1.5; Partial Thromboplastin Time 39.9 Seconds (21.0-31.0); Prothrombin Time 11.1 Seconds (9.0-12.0)
[2021-11-20 21:48] LABS: Basophils # (auto) 0.06 K/uL (0-0.2); Basophils % (auto) 0.6 %; Eosinophils # (auto) 0.37 K/uL (0-0.50); Eosinophils % (auto) 3.4 %; Hemoglobin 11.3 g/dl (12.0-16.0); Immature Granulocytes # (auto) 0.11 K/uL (0.00-0.02); Lymphocytes % (auto) 19.6 %; Mean Corpuscular Hgb Conc 32.3 g/dL (32.0-36.0); Mean Corpuscular Volume 92.8 fL (80.0-100.0); Mean Platelet Volume 9.8 fL (9.4-12.3); Monocytes # (auto) 1.24 K/uL (0.24-0.82); Monocytes % (auto) 11.5 %; Neutrophils # (auto) 6.86 K/uL (1.4-6.5); Neutrophils % (auto) 63.9 %; Platelet Count 210 K/uL (130-400); RDW Standard Deviation 47.3 fL (36.4-46.3); Red Blood Count 3.77 M/uL (3.93-5.22); White Blood Count 10.74 K/ul (4.8-10.8)
[2021-11-21 06:06] LABS: Basophils # (auto) 0.06 K/uL (0-0.2); Basophils % (auto) 0.6 %; Eosinophils # (auto) 0.32 K/uL (0-0.50); Eosinophils % (auto) 3.5 %; Hematocrit (blood only) 34.6 % (34.1-44.9); Hemoglobin 11.1 g/dl (12.0-16.0); Immature Granulocytes % (auto) 1.1 %; Lymphocytes # (auto) 1.58 K/uL (1.2-3.4); Lymphocytes % (auto) 17.1 %; Mean Corpuscular Hemoglobin 29.4 pg (25.0-34.0); Mean Corpuscular Hgb Conc 32.1 g/dL (32.0-36.0); Mean Corpuscular Volume 91.8 fL (80.0-100.0); Mean Platelet Volume 9.7 fL (9.4-12.3); Monocytes # (auto) 1.01 K/uL (0.24-0.82); Monocytes % (auto) 10.9 %; Neutrophils # (auto) 6.18 K/uL (1.4-6.5); Neutrophils % (auto) 66.8 %; Platelet Count 213 K/uL (130-400); RDW Coefficient of Variation 13.9 % (11.5-14.5); RDW Standard Deviation 46.5 fL (36.4-46.3); Red Blood Count 3.77 M/uL (3.93-5.22); White Blood Count 9.25 K/ul (4.8-10.8)
[2021-11-21 06:26] LABS: Partial Thromboplastin Ratio 1.2; Partial Thromboplastin Time 31.9 Seconds (21.0-31.0)
[2021-11-21 06:38] LABS: BUN Creatinine Ratio 19.8 (10-20); Calcium 8.7 mg/dl (8.5-10.1); Creatinine Clr Calc Pharmacy 56.6 ml/min; Est GFR (African American) 67.5 ml/min; Est GFR (Non-African American) 58.3 ml/min; Potassium 3.8 mmol/L (3.5-5.1)
[2021-11-21] MEDS: POLYETHYLENE (MIRALAX) 17 GM PACK PO SCH (09:01)
[2021-11-21] MEDS: DOCUSATE SODIUM 100 MG CAP PO SCH ×2 (09:01→20:24)
[2021-11-21] MEDS: ASPIRIN 81 MG ECTAB PO SCH (09:02)
[2021-11-21] MEDS: APIXABAN 5 MG TABLET PO SCH ×2 (09:02→20:23)
[2021-11-21] MEDS: carvediloL 12.5 MG TAB PO SCH ×2 (09:02→20:23)
[2021-11-21] MEDS: ATORVASTATIN 40 MG TAB PO SCH (09:02)
[2021-11-21] MEDS: NYSTATIN POWDER 15GM BTL EXT SCH ×2 (09:03→20:22)
[2021-11-21] MEDS: lisinopril 40 MG TAB PO SCH (09:03)
[2021-11-21] MEDS: INSULIN ASPART PER UNIT SC SCH ×4 (09:18→21:38)
--- NOTE | 2021-11-21 17:07 | Hospitalist Progress Note ---
Date of Service November 21, 2021 Assessment & Plan (1) Bilateral pulmonary embolism: (2) Hypoxia: (3) Elevated troponin: (4) Type 2 diabetes mellitus: (5) Hypertension: (6) Chronic kidney disease (CKD): (7) Hyperlipidemia: Plan 76 year old female with recent ankle fracture a month ago s/p surgery and on cast, s/p rehab stay for 3 weeks and discharged home a week ago presented to the ED with hypoxia. Denies any chest pain or shortness of breath. Found to have bilateral PE and acute DVT LLE. CTA chest 1. Extensive bilateral pulmonary embolus as above (Thrombus is seen in the distal right main pulmonary artery, extending into the upper, middle, and lower lobe pulmonary arteries into segmental and subsegmental branches. There is also thrombus within the distal left main pulmonary artery. This extends into the upper and lower lobe pulmonary arteries into segmental and subsegmental branches) 2. Foci of subpleural consolidation at the left lung base likely representing developing pulmonary infarcts. Clinical correlation will be required. 3. Trace left pleural effusion. 4. Cardiomegaly. 5. There is a 4 mm left upper lobe pulmonary nodule. This is pathologically indeterminate and can be followed as per the Fleischner criteria if clinically warranted. DVT B/L LE 1. There is occlusive deep venous thrombosis in the left popliteal vein and calf. 2. There is no sonographic evidence of above-knee deep venous thrombosis in the right lower extremity. 3. Right calf vessels could not be evaluated due to a cast. 4. Small left-sided popliteal cyst. Echo 11/19 reviewed. Acute PE without cor pulmonale, acute DVT LLE - 1st episode, like provoked in setting of recent surgery and relative immobility- hence will not order hypercoag test. CT, US LE and Echo reviewed. - hemodynamically stable - S/p heparin drip->changed to eliquis 11/20 and tolerating well. Per CM, cost is $156.84 for a month and they are agreeable. provided a month supply for free. - Likely 3-6 months of anticoag should be enough- will defer final duration to PCP Hypoxia- from above. on 2 L NC. Continue to wean down as tolerated. Per 2 step O2 eval, needs 2 L oxygen- need to be arranged at discharge Elevated trop- demand ischemia from above. 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 hold OP regimen- glipizide, empagliflozin. Continue SSI HTN- continue lisinopril, coreg H/o CVA- on ASA, statin Recent right ankle fracture s/p ORIF 10/16 - seen by ortho- cast removed and use walking boot - routine wound care- just dressings to right ankle including Carmelo bandage - WBAT in the boot, no need to wear at night. - OP follow up in 2 weeks DVT ppx- full dose eliquis Dispo- Pending PT eval. Needs O2 arranged prior to discharge as per 2 step O2 eval. Admission and Anticipated Discharge Date Admission Date: November 18, 2021 Subjective Feels fine. Denies any CP, SOB, N/V, fever, chills. States she does not want to go to rehab and wants to go home. Physical Exam Physical Exam: General: Lying comfortably in bed, not in distress, on NC 2 L Chest: Clear breath sounds bilaterally with basilar crackles CVS: Regular rate and rhythm, normal heart sounds, no murmur Abdomen: Soft, non tender, not distended, normal bowel sounds Neuro: Awake, alert, oriented, conversing well, non focal Extremities: No edema or tenderness. RLE with dressing. Results & Data Results & Data ([facility]) Vital Signs (Past 12 Hours) Vital Signs Temp Pulse Pulse Pulse Pulse Pulse Pulse 11/21/21 16:21 75 11/21/21 15:51 36.9 C 74 11/21/21 15:31 87 88 55 L 88 11/21/21 07:49 11/21/21 07:48 68 11/21/21 07:31 36.5 C 67 Resp Resp Resp Resp Resp BP Pulse Ox 11/21/21 16:21 11/21/21 15:51 18 107/63 97 11/21/21 15:31 20 20 20 18 11/21/21 07:49 11/21/21 07:48 11/21/21 07:31 20 106/69 96 Pulse Ox Pulse Ox Pulse Ox Pulse Ox O2 Del Method O2 Flow Rate O2 Flow Rate 11/21/21 16:21 11/21/21 15:51 Nasal Cannula 2.0 11/21/21 15:31 94 82 L 95 93 2 11/21/21 07:49 Nasal Cannula 2 11/21/21 07:48 11/21/21 07:31 Nasal Cannula 4.0 Laboratory Results Short CBC 11/20/21 11/21/21 Range/Units 20:54 05:40 WBC 10.74 9.25 (4.8-10.8) K/ul Hgb 11.3 L 11.1 L (12.0-16.0) g/dl Hct 35.0 34.6 (34.1-44.9) % Plt Count 210 213 (130-400) K/uL BMP 11/21/21 05:40 Sodium 142 Potassium 3.8 Chloride 108 H Carbon Dioxide 28 BUN 19 Creatinine 0.96 Glucose 130 H Calcium 8.7 Medications Administered Current Inpatient Medications Acetaminophen (Acetaminophen 325 Mg Tab) 650 mg PO Q4H PRN PRN Reason: Pain or Fever Stop: 12/18/21 17:48 Apixaban (Apixaban 5 Mg Tablet) 10 mg PO BID [facility] Stop: 11/27/21 09:01 Last Admin: 11/21/21 09:02 Dose: 10 mg Aspirin (Aspirin 81 Mg Ectab) 81 mg PO DAILY [facility] Stop: 12/20/21 08:59 Last Admin: 11/21/21 09:02 Dose: 81 mg Atorvastatin Calcium (Atorvastatin 40 Mg Tab) 40 mg PO DAILY [facility] Stop: 12/19/21 08:59 Last Admin: 11/21/21 09:02 Dose: 40 mg Carvedilol (Carvedilol 12.5 Mg Tab) 12.5 mg PO BID [facility] Stop: 12/18/21 20:59 Last Admin: 11/21/21 09:02 Dose: 12.5 mg Dextrose (Dextrose 50% 50 Ml Syringe) 25 - 50 ml IV UD PRN; Protocol PRN Reason: Hypoglycemia Protocol Stop: 12/18/21 17:48 Docusate Sodium (Docusate Sodium 100 Mg Cap) 100 mg PO BID [facility] Stop: 12/19/21 20:59 Last Admin: 11/21/21 09:01 Dose: Not Given Glucagon (Glucagon For Inj 1 Mg Vial) 1 mg SQ UD PRN; Protocol PRN Reason: Hypoglycemia Protocol Stop: 12/18/21 17:48 Glucose (Glucose 40% Gel 15 Gm Tube) 15 - 30 gm PO UD PRN; Protocol PRN Reason: Hypoglycemia Protocol Stop: 12/18/21 17:48 Glucose (Glucose 10 Tab/Tube) 4 - 8 tab PO UD PRN; Protocol PRN Reason: Hypoglycemia Treatment Stop: 12/18/21 17:48 Insulin Aspart (Insulin Aspart Per Unit) 0 units SC ACHS [facility] Stop: 12/18/21 20:59 Last Admin: 11/21/21 12:59 Dose: 7 units Lisinopril (Lisinopril 40 Mg Tab) 40 mg PO DAILY [facility] Stop: 12/19/21 08:59 Last Admin: 11/21/21 09:03 Dose: 40 mg Lorazepam (Lorazepam 0.5 Mg Tab) 0.5 mg PO HS PRN PRN Reason: Insomnia Stop: 12/19/21 12:48 Miscellaneous (Carbohydrates For Hypoglycemia ) 15 - 30 gm PO UD PRN PRN Reason: Hypoglycemia Protocol Stop: 12/18/21 17:48 Nystatin (Nystatin Powder 15gm Btl) 1 appln EXT BID [facility] Stop: 12/20/21 06:34 Last Admin: 11/21/21 09:03 Dose: 1 appln Polyethylene Glycol (Polyethylene (Miralax) 17 Gm Pack) 17 gm PO DAILY [facility] Stop: 12/19/21 14:59 Last Admin: 11/21/21 09:01 Dose: Not Given
--- NOTE | 2021-11-22 05:52 | Electrocardiogram Report ---
Test Reason : Blood Pressure : / mmHG Vent. Rate : 072 BPM Atrial Rate : 072 BPM P-R Int : 146 ms QRS Dur : 096 ms QT Int : 470 ms P-R-T Axes : 044 -15 001 degrees QTc Int : 514 ms Normal sinus rhythm Inferior infarct (cited on or before 12-JAN-2017) Anterior infarct (cited on or before 15-OCT-2021) T wave abnormality, consider anterior ischemia Prolonged QT Abnormal ECG When compared with ECG of 18-NOV-2021 13:37, T wave inversion more evident in Anterior leads QT has lengthened Confirmed by Herbert Au ([id number]) on 11/22/2021 5:52:14 AM Referred By: REFERRED SELF Confirmed By:Herbert Au
[2021-11-22] MEDS: DOCUSATE SODIUM 100 MG CAP PO SCH (08:03)
[2021-11-22] MEDS: POLYETHYLENE (MIRALAX) 17 GM PACK PO SCH (08:03)
[2021-11-22] MEDS: carvediloL 12.5 MG TAB PO SCH (08:04)
[2021-11-22] MEDS: APIXABAN 5 MG TABLET PO SCH (08:04)
[2021-11-22] MEDS: ASPIRIN 81 MG ECTAB PO SCH (08:04)
[2021-11-22] MEDS: ATORVASTATIN 40 MG TAB PO SCH (08:04)
[2021-11-22] MEDS: NYSTATIN POWDER 15GM BTL EXT SCH (08:05)
[2021-11-22] MEDS: lisinopril 40 MG TAB PO SCH (08:05)
[2021-11-22] MEDS: INSULIN ASPART PER UNIT SC SCH ×2 (08:54→12:30)
--- NOTE | 2021-11-22 13:51 | Hospitalist Progress Note ---
Date of Service November 22, 2021 Assessment & Plan (1) Bilateral pulmonary embolism: (2) Hypoxia: (3) Elevated troponin: (4) Type 2 diabetes mellitus: (5) Hypertension: (6) Chronic kidney disease (CKD): (7) Hyperlipidemia: Plan 76 year old female with recent ankle fracture a month ago s/p surgery and on cast, s/p rehab stay for 3 weeks and discharged home a week ago presented to the ED with hypoxia. Denies any chest pain or shortness of breath. Found to have bilateral PE and acute DVT LLE. CTA chest 1. Extensive bilateral pulmonary embolus as above (Thrombus is seen in the distal right main pulmonary artery, extending into the upper, middle, and lower lobe pulmonary arteries into segmental and subsegmental branches. There is also thrombus within the distal left main pulmonary artery. This extends into the upper and lower lobe pulmonary arteries into segmental and subsegmental branches) 2. Foci of subpleural consolidation at the left lung base likely representing developing pulmonary infarcts. Clinical correlation will be required. 3. Trace left pleural effusion. 4. Cardiomegaly. 5. There is a 4 mm left upper lobe pulmonary nodule. This is pathologically indeterminate and can be followed as per the Fleischner criteria if clinically warranted. DVT B/L LE 1. There is occlusive deep venous thrombosis in the left popliteal vein and calf. 2. There is no sonographic evidence of above-knee deep venous thrombosis in the right lower extremity. 3. Right calf vessels could not be evaluated due to a cast. 4. Small left-sided popliteal cyst. Echo 11/19 reviewed. Acute PE without cor pulmonale, acute DVT LLE - 1st episode, like provoked in setting of recent surgery and relative immobility- hence will not order hypercoag test. CT, US LE and Echo reviewed. - hemodynamically stable - S/p heparin drip->changed to eliquis 11/20 and tolerating well. Per CM, cost is $156.84 for a month and they are agreeable. CM provided a month supply for free. - Likely 3-6 months of anticoag should be enough- will defer final duration to PCP Hypoxia-in RA today; will re-evaulate today again as oxygen requirement has trended down. Elevated trop- demand ischemia from above. 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 hold OP regimen- glipizide, empagliflozin. Continue SSI HTN- continue lisinopril, coreg H/o CVA- on ASA, statin Recent right ankle fracture s/p ORIF 10/16 - seen by ortho- cast removed and use walking boot - routine wound care- just dressings to right ankle including Carmelo bandage - WBAT in the boot, no need to wear at night. - OP follow up in 2 weeks DVT ppx- full dose eliquis Dispo- Pending OT eval. 2 step oxygen re-eval today. Admission and Anticipated Discharge Date Admission Date: November 18, 2021 Subjective Patient seen in the morning and in afternoon. She is sitting up on the chair; not in any acute distress. She was evaluated by PT today. She is not requiring any supplemental oxygen today. She denies any chest pain, shortness of breath, fever or chills. Review of Systems Review of Systems: All systems reviewed & are unremarkable except as noted in Subjective Physical Exam Physical Exam: General: Lying comfortably in bed, not in distress, on NC 2 L Chest: Clear breath sounds bilaterally with basilar crackles CVS: Regular rate and rhythm, normal heart sounds, no murmur Abdomen: Soft, non tender, not distended, normal bowel sounds Neuro: Awake, alert, oriented, conversing well, non focal Extremities: No edema or tenderness. RLE with dressing. Results & Data Results & Data ([facility]) Vital Signs (Past 12 Hours) Vital Signs Temp Pulse Pulse Resp BP Pulse Ox O2 Del Method 11/22/21 11:12 36.9 C 70 18 102/67 97 Nasal Cannula 11/22/21 10:27 94 11/22/21 09:46 Room Air 11/22/21 09:10 65 11/22/21 07:48 36.8 C 70 18 123/74 98 Nasal Cannula 11/22/21 03:40 36.6 C 70 18 104/67 97 Nasal Cannula O2 Flow Rate 11/22/21 11:12 2 11/22/21 10:27 11/22/21 09:46 11/22/21 09:10 11/22/21 07:48 2 11/22/21 03:40 2 Diagnostic Findings Laboratory Results WBC 9.25 K/ul (4.8-10.8) 11/21/21 05:40 RBC 3.77 M/uL (3.93-5.22) L 11/21/21 05:40 Hgb 11.1 g/dl (12.0-16.0) L 11/21/21 05:40 Hct 34.6 % (34.1-44.9) 11/21/21 05:40 MCV 91.8 fL (80.0-100.0) 11/21/21 05:40 MCH 29.4 pg (25.0-34.0) 11/21/21 05:40 MCHC 32.1 g/dL (32.0-36.0) 11/21/21 05:40 RDW Std Deviation 46.5 fL (36.4-46.3) H 11/21/21 05:40 RDW Coeff of Dodie 13.9 % (11.5-14.5) 11/21/21 05:40 Plt Count 213 K/uL (130-400) 11/21/21 05:40 MPV 9.7 fL (9.4-12.3) 11/21/21 05:40 Immature Gran % (Auto) 1.1 % 11/21/21 05:40 Neut % (Auto) 66.8 % 11/21/21 05:40 Lymph % (Auto) 17.1 % 11/21/21 05:40 Shoshone % (Auto) 10.9 % 11/21/21 05:40 Eos % (Auto) 3.5 % 11/21/21 05:40 Baso % (Auto) 0.6 % 11/21/21 05:40 Neut # (Auto) 6.18 K/uL (1.4-6.5) 11/21/21 05:40 Lymph # (Auto) 1.58 K/uL (1.2-3.4) 11/21/21 05:40 Shoshone # (Auto) 1.01 K/uL (0.24-0.82) H 11/21/21 05:40 Eos # (Auto) 0.32 K/uL (0-0.50) 11/21/21 05:40 Baso # (Auto) 0.06 K/uL (0-0.2) 11/21/21 05:40 Immature Gran # (Auto) 0.10 K/uL (0.00-0.02) H 11/21/21 05:40 PT 11.1 Seconds (9.0-12.0) 11/20/21 20:54 INR 1.0 (0.9-1.1) 11/20/21 20:54 APTT 31.9 Seconds (21.0-31.0) H 11/21/21 05:40 PTT Ratio 1.2 11/21/21 05:40 Sodium 142 mmol/L (136-145) 11/21/21 05:40 Potassium 3.8 mmol/L (3.5-5.1) 11/21/21 05:40 Chloride 108 mmol/L (98-107) H 11/21/21 05:40 Carbon Dioxide 28 mmol/L (21-32) 11/21/21 05:40 Anion Gap 6 (3-11) 11/21/21 05:40 BUN 19 mg/dl (6-23) 11/21/21 05:40 Creatinine 0.96 mg/dl (0.6-1.2) 11/21/21 05:40 Est Cr Clr Drug Dosing 56.6 ml/min 11/21/21 05:40 Est GFR ( Amer) 67.5 ml/min 11/21/21 05:40 Est GFR (Non-Af Amer) 58.3 ml/min 11/21/21 05:40 BUN/Creatinine Ratio 19.8 (10-20) 11/21/21 05:40 Glucose 130 mg/dl (70-99(Fasting)) H 11/21/21 05:40 POC Glucose 199 mg/dl (70-99) H 11/22/21 11:31 Estimat Average Glucose 203 mg/dl 11/19/21 05:38 Hemoglobin A1c 8.7 % (4.5-5.6) H 11/19/21 05:38 Calcium 8.7 mg/dl (8.5-10.1) 11/21/21 05:40 Magnesium 2.2 mg/dl (1.7-2.4) 11/18/21 13:35 Total Bilirubin 0.7 mg/dl (0.2-1.0) 11/18/21 13:35 AST 9 U/L (13-39) L 11/18/21 13:35 ALT 7 U/L (7-52) 11/18/21 13:35 Alkaline Phosphatase 84 U/L (34-104) 11/18/21 13:35 Troponin I High Sens 118.8 pg/ml (0-14) H* D 11/19/21 01:43 Total Protein 7.0 gm/dl (6.0-8.3) 11/18/21 13:35 Albumin 3.9 gm/dl (3.4-5.0) 11/18/21 13:35 Globulin 3.1 gm/dl (2.5-4.0) 11/18/21 13:35 Albumin/Globulin Ratio 1.3 (0.9-2) 11/18/21 13:35 Lipase 61 U/L (11-82) 11/18/21 13:35 SARS-CoV-2 (PCR) NEGATIVE (Negative) 11/18/21 13:31 Influenza Type A (PCR) Negative (Neg) 11/18/21 13:31 Influenza Type B (PCR) Negative (Neg) 11/18/21 13:31 RSV (RT-PCR) Negative (Neg) 11/18/21 13:31 Impressions Chest CTA 11/18/21 12:58 CT ANGIOGRAM OF THE CHEST CLINICAL HISTORY: Dyspnea. Recent surgery. COMPARISON STUDY: Chest x-ray dated 10/15/2021. TECHNIQUE: Following the IV administration of 113 cc of Optiray 300, CT angiogram of the chest was performed from the upper abdomen to the thoracic inlet utilizing the pulmonary embolus protocol. Images are reviewed in the axial, sagittal, and coronal planes. 3-D MIPS images are created and assessed. IV contrast was administered without complication. A dose lowering technique was utilized adhering to the principles of ALARA. CT DOSE: 1428.12 mGy.cm FINDINGS: Thyroid: Imaged portions of the thyroid gland are normal in size and attenuation. Thoracic aorta: There is a sclerotic calcification of the thoracic aorta, which is normal in caliber and demonstrates bovine variant arch anatomy. No dissection is seen. Pulmonary vasculature: The pulmonary trunk is normal in caliber. There is extensive bilateral pulmonary embolus. Thrombus is seen in the distal right main pulmonary artery, extending into the upper, middle, and lower lobe pulmonary arteries into segmental and subsegmental branches. There is also thrombus within the distal left main pulmonary artery. This extends into the upper and lower lobe pulmonary arteries into segmental and subsegmental branches. Heart: The heart is mildly enlarged noting trace pericardial effusion. There are coronary artery calcifications. The mitral annulus is densely calcified. Lungs and pleural spaces: Subpleural foci of consolidation in the left lower lobe likely represent developing pulmonary infarcts. There is trace left pleural effusion. Foci of air trapping are seen throughout both lungs. There is bibasilar scarring/atelectasis. A 4 mm left upper lobe pulmonary nodule is seen on image #217. A 3 mm pleural-based nodule in the right upper lobe as seen on image #238. Mediastinum: Prominent mediastinal lymph nodes measure up to 9 mm short axis. These are likely reactive. Yesy: Clear. Axillae: There is no axillary lymphadenopathy. Upper abdomen: There is a small hiatal hernia. The gallbladder is surgically absent. 2 left adrenal adenomas measure up to 3.5 cm. Skeletal structures: The skeletal structures are osteopenic. Spondylotic change is noted in the thoracic spine. No lytic or blastic bony lesions are seen. IMPRESSION: 1. Extensive bilateral pulmonary embolus as above. 2. Foci of subpleural consolidation at the left lung base likely representing developing pulmonary infarcts. Clinical correlation will be required. 3. Trace left pleural effusion. 4. Cardiomegaly. 5. There is a 4 mm left upper lobe pulmonary nodule. This is pathologically indeterminate and can be followed as per the Fleischner criteria if clinically warranted. 6. Additional findings as above. Please refer to below summary of Fleischner criteria recommendations for follow- up of incidental CT nodules (Bindu Russ, Guidelines for management of small pulmonary nodules detected on CT scans: A statement from the Fleischner Society, Radiology 237: [id number].) SOLID NODULES Solitary nodule size: <6 mm * low risk patients: no follow-up needed * high risk patients: optional CT at 12 months Solitary nodule size: 6-8 mm * low risk patients: follow-up at 6-12 months, then consider further follow-up at 18-24 months * high risk patients: initial follow-up CT at 6-12 months and then at 18-24 months if no change Solitary nodule size: >8 mm * either low or high risk patients - consider follow-up CT at 3 months, and/or CT-PET, and/or biopsy Multiple nodules size: <6 mm * low risk patients: no routine follow-up * high risk patients: optional CT at 12 months Multiple nodules size: 6-8 mm * low risk patients: follow-up at 3-6 months, then consider further follow-up at 18-24 months * high risk patients: follow-up at 3-6 months, then at 18-24 months if no change Multiple nodules size: >8 mm * low risk patients: follow-up at 3-6 months, then consider further follow-up at 18-24 months * high risk patients: follow-up at 3-6 months, then at 18-24 months if no change Note: newly detected indeterminate nodule in persons 35 years of age or older. * low risk patients: minimal or absent history of smoking and/or other known risk factors * high risk patients: history of smoking or of other known risk factors (e.g. first degree relative with lung cancer, or exposure to asbestos, radon, uranium) * if a nodule up to 8 mm is partly solid or is ground glass further follow-up is required after 24 months to exclude possible slow growing adenocarcinoma (JUDITH) SUBSOLID NODULES Solitary pure ground-glass nodule * nodule size <6 mm - no CT follow-up required * nodule size >=6 mm - follow-up CT at 6-12 months, then every 2 years until 5 years Solitary part-solid nodule * nodule size <6 mm - no CT follow-up required * nodule size >=6 mm - follow-up CT at 3-6 months. If unchanged, and solid component remains <6 mm, then annual follow-up for 5 years Multiple subsolid nodules * nodule size <6 mm - follow-up CT at 3-6 months, consider further follow-up at 2 and 4 years if stable * nodule size >=6 mm - follow-up CT at 3-6 months, subsequent management based on the most suspicious nodule(s) ACT 112: Negative or not required by law. Electronically signed by: Nikolas Dobson M.D. 11/18/2021 3:[address] 11/18/21 14:25 CT head/brain wo con CLINICAL HISTORY: 76 years-old Female with confusion. Acutely altered mental status TECHNIQUE: Multiple axial CT images of the head were obtained without contrast. A dose lowering technique was utilized adhering to the principles of ALARA. COMPARISON: Head CT 09/22/2011 FINDINGS: No acute intracranial hemorrhage, midline shift, intracranial mass, hydrocephalus, territorial ischemia or abnormal extra-axial collection. Chronic left occipital, left cerebellar and bilateral frontal parietal infarcts with progressive encephalomalacia compared to the prior exam. Chronic lacunar infarcts of the right cerebellar hemisphere. Age-related involutional changes. White matter hypodensities suggestive of chronic microvascular ischemic disease. The calvarium is intact. Prior bilateral lens repair. The paranasal sinuses, mastoid air cells, and middle ear cavities are clear. IMPRESSION: Chronic findings as above without acute intracranial abnormality. ACT 112: Negative or not required by law. The above report was generated using voice recognition software. It may contain grammatical, syntax or spelling errors. Electronically signed by: Des England M.D. 11/18/2021 3:03 PM Venous Doppler Study 11/18/21 17:49 ULTRASOUND BILATERAL LOWER EXTREMITY VENOUS CLINICAL HISTORY: Pulmonary embolus. COMPARISON STUDY: No priors. TECHNIQUE: Real-time, grayscale, and color Doppler sonography of the deep veins of the right and left lower extremity was performed from the inguinal crease to the calf. Compression and augmentation were utilized. FINDINGS: Right lower extremity: There is no sonographic evidence of above knee deep venous thrombosis in the right lower extremity. The common femoral, superficial femoral, and popliteal veins are patent and normally compressible. The greater saphenous vein and the profunda femoris vein at the junction with the common femoral vein are clear. The calf vessels cannot be assessed due to overlying cast material. Left lower extremity: There is occlusive deep venous thrombosis in the left popliteal vein. There is also thrombus in the calf and the posterior tibial veins and one of the peroneal veins. The common femoral and superficial femoral veins Are patent and normally compressible. The greater saphenous vein and the profunda femoris vein at the junction with the common femoral vein are clear. A small complex popliteal cyst measures 4.1 x 1.0 x 2.1 cm. IMPRESSION: 1. There is occlusive deep venous thrombosis in the left popliteal vein and calf. 2. There is no sonographic evidence of above-knee deep venous thrombosis in the right lower extremity. 3. Right calf vessels could not be evaluated due to a cast. 4. Small left-sided popliteal cyst. ACT 112: Negative or not required by law. Electronically signed by: Nikolas Dobson M.D. 11/19/2021 6:28 AM
--- NOTE | 2021-11-22 17:28 | Discharge Summary ---
Date of Service November 22, 2021 Admission HPI Per Admitting Provider This is a 76 y/o female with a PMH of type 2 diabetes complicated by retinopathy and nephropathy, HTN, hyperlipidemia, prior CVA, depression, CKD3 and recent ankle fracture s/p ORIF presents to the ED today for evaluation of hypoxia with concern for PE. Pt was admitted 10/15-10/18/21 due to trimalleolar ankle fracture dislocation from a fall at home. She underwent ORIF on 10/16/21. She was sent to rehab after admission and was discharged home about a week and a half ago per . Since being home, she has overall done well although they report home health has only come three times and she has not been receiving PT consistently. She ambulates with assistance and a rolling walker but only short distances. Earlier this week, she and her went on a 1 1/2 hour car ride. Yesterday, they went to [facility] where she was sitting in a wheelchair for several hours. When they got home yesterday, she was very pale and fatigued. She complained of generalized pain but could not localize it. There was a question of mild confusion. She fell asleep for a few hours and when she woke up late last evening she seemed back to her baseline so they decided not to come to the ED. However, this morning, she was evaluated by the [facility] for intake and was noted to be weak and hypoxic so she was referred to the ED for evaluation. Pt denies chest pain, palpitations, dizziness, syncope, RAMEY, N/V, abdominal pain, calf pain, LE swelling. She is fatigued. She is currently on oxygen but reports this is atypical for her as she does not require at baseline. Denies prior history of clot. Admission Exam Per Admitting Provider Constitutional: well developed and well nourished; no acute distress Eyes: + anicteric sclerae ENMT: external ear and nose normal, oropharynx normal Neck: trachea midline Respiratory: no respiratory distress and no labored breathing Auscultation: lungs clear to auscultation bilaterally; no rales, no rhonchi and no wheezes Cardiovascular: Rate/Rhythm: regular rate and regular rhythm Vessels: radial pulses present Extremities: no edema (limited visibility of RLE due to cast in place) B Gastrointestinal (Abdomen): Inspection/Auscultation: normal bowel sounds; abdomen not distended Percussion/Palpation: abdomen soft; abdomen nontender Musculoskeletal: Head/Neck/Chest: normocephalic, head atraumatic and neck supple right ankle with cast in place and overlying walking boot Skin: no jaundice Neurologic: moves all extremities; no focal motor deficits Psychiatric: Orientation: alert and oriented x 3 tearful when talking about her daughter who but otherwise euthymic affect Principal Diagnosis Bilateral PE Acute Hypoxic Respiratory failure 2/2 PE Elevated troponin HTN Chronic Kidney Disease Discharge Exam General: Lying comfortably in bed, not in distress, on NC 2 L Chest: Clear breath sounds bilaterally with basilar crackles CVS: Regular rate and rhythm, normal heart sounds, no murmur Abdomen: Soft, non tender, not distended, normal bowel sounds Neuro: Awake, alert, oriented, conversing well, non focal Extremities: No edema or tenderness. RLE with dressing. Discharge Data Allergies Allergy/AdvReac Type Severity Reaction Status Date / Time No Known Allergies Allergy Verified 11/03/21 09:04 Consultations 11/18/21 15:55 ED Decision to Admit Stat Ordered Studies 11/18/21 12:58 CT angio chest PE protocol Stat 11/18/21 14:25 CT head/brain wo con Stat 11/18/21 17:49 US venous duplex leg [US venous doppler LE BI] Urgent Hospital Course (1) Bilateral pulmonary embolism: (2) Hypoxia: (3) Elevated troponin: (4) Type 2 diabetes mellitus: (5) Hypertension: (6) Chronic kidney disease (CKD): (7) Hyperlipidemia: Plan Patient is a 76-year-old female with past medical history of type 2 diabetes mellitus, hyperlipidemia presented to the ED for evaluation for hypoxia. Patient was admitted in September for ankle fracture and underwent surgery. She was discharged to rehab and had returned back home 1 and half weeks ago. During the evaluation in the ED, patient was found to have bilateral PE. Patient was admitted to telemetry floor for further management. Patient was initially on heparin drip which was transitioned to Eliquis. Echo was done to rule out right heart strain. PT OT evaluation was done; patient was recommended to discharge back home. Patient had received 4 doses of 10 mg Eliquis in the hospital. Patient was instructed to take 10 more doses of 10 mg Eliquis twice daily and switch to 5 mg twice daily. Patient was instructed to follow-up with PCP to determine duration of anticoagulation. Two-step oxygen evaluation was done; patient did not require an supplemental oxygen. Patient was discharged in a stable condition. Total Time Total Time Spent Total Time Spent (In Minutes): 35 Total Time Includes: Examination of the Patient, Discharge Planning, Medication Reconciliation, Communication With Other Providers and Other Discharge Plan Discharge Items Patient Disposition: Home - Home Health Services Reason For Visit: BILATERAL PE Discharge Diagnosis: (1) Bilateral pulmonary embolism: (2) Hypoxia: (3) Elevated troponin: (4) Type 2 diabetes mellitus: (5) Hypertension: (6) Chronic kidney disease (CKD): (7) Hyperlipidemia: Activity: Resume your previous activity Non-emergency contact: Primary Care Provider Call non-emergency contact if: you have any medication questions and your symptoms worsen Follow-up/Referrals: Indira Argueta DO [Primary Care Provider] - (Date & Time 11/25/2021 1:40 PM Provider Rachel Cramer MD Department Family Practice [facility] ) Diet: Carb Consistent or DM2 Addtl Attending Provider Instructions: Please take Eliquis as described below. 1) Take Eliquis 10mg ( 2 tablets of 5 mg) twice daily for 10 doses ( 5 days). 2) After 5 days, Start taking Eliquis 5mg ( 1 tablet of 5mg ) twice daily. Please follow up with your PCP as soon as possible. Discuss regarding duration of blood thinners. I have sent you prescription for one month. Pending Studies at Discharge: No Stand-Alone Forms: My [facility], Smoking Cessation Medications and DC Order Prescriptions: New Eliquis 5 mg Tablet 10 mg PO BID 5 Days Qty: 20 0RF Eliquis 5 mg tablet 5 mg PO BID Qty: 60 0RF Rx Instructions: Start after completion of 5 day course of 10mg ( 2 tablets of 5 mg) twice daily. Continued atorvastatin 40 mg Tablet 40 mg PO DAILY carvedilol 12.5 mg tablet 12.5 mg PO BID glipizide 10 mg tablet extended release 24hr 10 mg PO DAILY aspirin 81 mg Tablet,Delayed Release (Dr/Ec) 81 mg PO DAILY lorazepam 0.5 mg tablet 0.5 mg PO HS PRN (Reason: Insomnia) lisinopril 40 mg tablet [address] [facility] 8 mg iron-400 mcg-300 mcg Tablet 1 tab PO DAILY empagliflozin 25 mg Tablet 25 mg PO DAILY Trulicity 0.75 mg/0.5 mL pen injector 0.75 mg SUBCUT WK Discharge Orders: Discharge Order (Routine); Ordered 11/22/21 Ordered By: Jamey Hodge/Other Patient Handouts: Pulmonary Embolism, Managing Type 2 Diabetes, Pulmonary Embolism Dc Admission Data Admit Date/Time: 11/18/21 16:03 Attending Provider: Jamey Nuñez Admit Provider: [facility] Primary Care Provider: Indira Argueta Other Providers: [facility] ; [facility] Other Interventions: Discharge Summary Assessment (RN) Last Done: 11/22/21 15:27
--- NOTE | 2021-12-14 07:56 | Coding Query ---
PRESENT ON ADMISSION QUERY To promote full compliance with coding requirements relating to pateint care, physician participation is requested in all cases of bulk tank car unloader uncertainty. Please assist us with the question(s) below: Please place an X within the parenthesis (x). The following diagnosis listed in this patient's medical record require physician assistance to determine if they were present on admission (POA) or not. Please advise for each diagnosis whether it was present on admission, not present on admission, or if it was clinically undetermined. 1. ACUTE HYPOXIC RESPIRATORY FAILURE (documented on Discharge Summary, and Hypoxia is documented throughout) (X ) Present On Admission ( ) Not Present On Admission ( ) Clinically Undetermined Thank you Cata [place] *Definition of the present on admission (POA)-Present on admission is defined as present at the time the order for inpatient admission occurs. Conditions that develop during an outpatient encounter prior to a written order for inpatient admission (including emergency department, observation, or outpatient surgery) are considered present on admission. MTDD
== END 2021-11-22 16:03 | disposition home health service (06) | DRG 175 ==
LOC: ED 11:40 → 2S 16:03 → SUATTDRO 16:03 → 2S 17:04

== ENCOUNTER 2025-01-10 14:10 | Inpatient (IN) ==
[2025-01-10] MEDS: OPTIRAY 320 125ml IV ONE (14:20)
--- NOTE | 2025-01-10 14:37 | Emergency Department Note ---
Impression & Plan Hypertensive emergency, Acute hyperglycemia, Seizure ED Provider Note ED Provider Note NAME: SANDY SYED AGE:79 SEX: Female : 1945 ARRIVES VIA: EMS INFORMANT: Patient ED PROVIDER(s): Brenna Cain CHIEF COMPLAINT: AMS HPI: 79-year-old female presents emergency room with complaints of altered mental status. Patient was leaving a restaurant after eating lunch and she had seizure-like activity in the parking lot. Her son lowered her to the ground. It lasted several minutes. She was then aphasic nonresponsive following. EMS arrived, her blood sugar was actually hyperglycemic, was found to be pretty hypertensive. She did have a gag reflex, she was breathing spontaneously. She was stroke alerted and brought to the hospital. She initially stated that she was not on Eliquis, but she was still confused and postictal at that time, now she stating that she is on it although her son states that she is no longer on it. So there is some confusion on this point. Patient's NIH on arrival is 8. Patient's NIH on reevaluation after CT is 0. She was completely resolved alert and oriented and interactive moving extremities x 4. PAST MEDICAL HISTORY:See Below PAST SURGICAL HISTORY:See Below FAMILY HISTORY:See Below SOCIAL HISTORY:See Below HOME MEDICATIONS:See Below ALLERGIES:See Below VITALS:See Below PHYSICAL EXAMINATION: GENERAL: alert, well appearing, well nourished, no distress, non-toxic EYE EXAM: normal conjunctiva, PERRL and EOM's grossly intact OROPHARYNX: no exudate, no erythema, lips, buccal mucosa, and tongue normal and mucous membranes are moist NECK: supple, no nuchal rigidity, no adenopathy, non-tender LUNGS: Clear to auscultation. Normal chest wall mechanics, no w/r/r HEART: no murmurs, S1 normal and S2 normal ABDOMEN: abdomen soft, non-tender, normo-active bowel sounds, no masses, no rebound or guarding. BACK: Back is symmetrical on inspection and there is no deformity, no midline tenderness, no CVA tenderness. SKIN: no rashes, petechiae, orbruising UPPER EXTREMITIES: upper extremities are grossly normal. FROM, nml pulses b/l. LOWER EXTREMITIES: No pitting edema. FROM, nml pulses b/l. NEURO EXAM: Normal sensorium, cranial nerves II-XII grossly intact, normal speech, no facial droop,nogross weakness of arms, no gross weakness of legs. Gross sensation intact. No ataxia. Vital Signs: reviewed and remarkable Differential Diagnosis: Infection, hypoglycemia, electrolyte abnormalities, overdose, toxicologic, cardiac sources, intracerebral event, neurologic, trauma, as well as other pathologies. MEDICAL DECISION MAKIN-year-old female presents emergency room with complaints of seizure-like activity with altered mental status. Patient's NIH is 0 following reevaluation in the emergency room, she is not a tPA candidate secondary to resolved symptoms. She has a history of multiple strokes before. She may be on Eliquis, which would also be a contraindication for treatment. Patient's blood pressure was also quite high, she was given labetalol. Patient's pressure improved with labetalol. Spoke with her about results and plan for admission. She is agreeable. Her NIH was still 0 on reevaluation for admission. I spoke with hospitalist, they will admit. I spoke with her and her family, they are agreeable to plan. ER Treatment Provided: See below Diagnostics Interpreted By Me: -ECG: EKG shows sinus tach at a rate of [address] changes, incomplete bundle branch block. Some ST depression in V5 V6. T wave inversions lead III and aVF. When compared to prior of 06-14-2022, similar changes are noted. -Cardiac Monitoring: An order was placed for continuous cardiac monitoring. The monitor shows a rate of 100 with NS rhythm. -Laboratory studies: As stated above and show below. -Imaging studies: CT head shows old strokes. CT angio showing no acute, CT angio neck showing 20% bilateral Past Med/Surg History Problem List (Updated 01/10/25 @ 17:03 by Abbie Cain DO) Seizure (Acute) Hypertensive emergency (Acute) Seizure disorder Acute hyperglycemia (Acute) Trimalleolar fracture of ankle, closed Bilateral pulmonary embolism (Acute) Hyperlipidemia Diabetic retinopathy Type 2 diabetes mellitus Hypertension Chronic kidney disease (CKD) Major depressive disorder Medical History Chronic kidney disease (CKD) Diabetic retinopathy Dyspnea Elevated troponin History of cerebrovascular accident Hyperlipidemia Hypertension Hypoxia Major depressive disorder Trimalleolar fracture of ankle, closed Type 2 diabetes mellitus Surgical History History of ankle surgery History of section History of cholecystectomy History of total knee arthroplasty Family History Mother Ovarian cancer Parkinson disease Social History Smoking Status: Never smoker Hx Alcohol Use: No Hx Substance Use: No Preferred Language: Sami Communication Ability: Effective Barrel Assembler Required: No Beliefs That Will Affect Care: None marital status: Current Living Situation: Spouse and Family How many Children do You have: 1 Feels Safe at Home: Yes Assistive Devices: Bedside Commode, Walker and Wheelchair Allergies Allergies Allergy/AdvReac Type Severity Reaction Status Date / Time No Known Allergies Allergy Verified 06/14/22 22:03 Home Meds Home Medications Medication Instructions Recorded Confirmed empagliflozin 25 mg tablet 0 mg PO DAILY 11/18/21 01/10/25 [id number] 8 mg-folic 400 1 tab PO DAILY 11/18/21 01/10/25 mcg-K 50 mcg-lutein 300 mcg tablet (Centrum Silver Women) atorvastatin 80 mg tablet 80 mg PO DAILY 01/10/25 01/10/25 dulaglutide 3 mg/0.5 mL 3 mg subcut WK 01/10/25 01/10/25 subcutaneous pen injector (Trulicity) Previous Rx's Medication Instructions Recorded apixaban 5 mg tablet (Eliquis) 5 mg PO BID #60 tabs 11/22/21 Results & Data (ED) Vital Signs Vital Signs - 24 hr 01/10/25 14:15 01/10/25 14:15 01/10/25 14:30 Temperature 36.6 C Temperature Source Oral Pulse Rate 105 H 112 H Pulse Rate [Apical] Pulse Rate from SpO2 Sensor Respiratory Rate 14 24 Respiratory Effort / Characteristics Non-Labored Respiratory Depth Normal Normal Respiratory Pattern Blood Pressure 200/100 H 200/103 H Blood Pressure [Right Arm] Blood Pressure Mean 133 129 Blood Pressure Mean [Right Arm] Blood Pressure Position Lying Blood Pressure Position [Right Arm] Pulse Oximetry 85 L 93 Oxygen Delivery Method Room Air Nasal Cannula Oxygen Flow Rate 2 Sepsis Recent Fever Within 48 Hours No Sepsis New/Unexplained Change in Mental Status No Sepsis Action Taken by Nursing No Action Required Oxygen Flow Rate - Titration Pulse Oximetry Post Tiitration 01/10/25 14:37 10/18/25 14:40 01/10/25 14:45 Temperature Temperature Source Pulse Rate 112 H 113 H 110 H Pulse Rate [Apical] Pulse Rate from SpO2 Sensor 110 H Respiratory Rate 18 28 H Respiratory Effort / Characteristics Respiratory Depth Respiratory Pattern Blood Pressure 200/97 H 200/97 H 138/100 Blood Pressure [Right Arm] Blood Pressure Mean 160 112 Blood Pressure Mean [Right Arm] Blood Pressure Position Blood Pressure Position [Right Arm] Pulse Oximetry 96 96 Oxygen Delivery Method Nasal Cannula Nasal Cannula Oxygen Flow Rate 4 4 Sepsis Recent Fever Within 48 Hours Sepsis New/Unexplained Change in Mental Status Sepsis Action Taken by Nursing Oxygen Flow Rate - Titration Pulse Oximetry Post Tiitration 01/10/25 14:46 01/10/25 14:56 01/10/25 14:56 Temperature Temperature Source Pulse Rate 112 H Pulse Rate [Apical] Pulse Rate from SpO2 Sensor Respiratory Rate Respiratory Effort / Characteristics Respiratory Depth Normal Respiratory Pattern Blood Pressure Blood Pressure [Right Arm] Blood Pressure Mean Blood Pressure Mean [Right Arm] Blood Pressure Position Blood Pressure Position [Right Arm] Pulse Oximetry 85 L Oxygen Delivery Method Room Air Oxygen Flow Rate Sepsis Recent Fever Within 48 Hours Sepsis New/Unexplained Change in Mental Status Sepsis Action Taken by Nursing Oxygen Flow Rate - Titration 4 Pulse Oximetry Post Tiitration 95 01/10/25 15:01 01/10/25 15:51 01/10/25 15:51 Temperature 36.8 C Temperature Source Oral Pulse Rate 101 H Pulse Rate [Apical] 113 H Pulse Rate from SpO2 Sensor Respiratory Rate 24 Respiratory Effort / Characteristics Non-Labored Spontaneous Respiratory Depth Normal Respiratory Pattern Regular Blood Pressure 163/98 H 232/117 H Blood Pressure [Right Arm] 237/144 H Blood Pressure Mean 139 Blood Pressure Mean [Right Arm] 175 Blood Pressure Position Blood Pressure Position [Right Arm] Semi-fowlers Pulse Oximetry 98 Oxygen Delivery Method Nasal Cannula Oxygen Flow Rate 4 Sepsis Recent Fever Within 48 Hours Sepsis New/Unexplained Change in Mental Status Sepsis Action Taken by Nursing Oxygen Flow Rate - Titration Pulse Oximetry Post Tiitration 01/10/25 15:54 01/10/25 15:54 01/10/25 16:00 Temperature Temperature Source Pulse Rate 114 H Pulse Rate [Apical] Pulse Rate from SpO2 Sensor Respiratory Rate 24 Respiratory Effort / Characteristics Respiratory Depth Respiratory Pattern Blood Pressure 237/144 H 237/144 H Blood Pressure [Right Arm] Blood Pressure Mean 173 173 Blood Pressure Mean [Right Arm] Blood Pressure Position Blood Pressure Position [Right Arm] Pulse Oximetry 95 Oxygen Delivery Method Nasal Cannula Oxygen Flow Rate 2 Sepsis Recent Fever Within 48 Hours Sepsis New/Unexplained Change in Mental Status Sepsis Action Taken by Nursing Oxygen Flow Rate - Titration Pulse Oximetry Post Tiitration 01/10/25 16:00 01/10/25 16:00 01/10/25 16:12 Temperature Temperature Source Pulse Rate 110 H Pulse Rate [Apical] Pulse Rate from SpO2 Sensor Respiratory Rate 22 Respiratory Effort / Characteristics Respiratory Depth Respiratory Pattern Blood Pressure 220/121 H 220/121 H Blood Pressure [Right Arm] Blood Pressure Mean 158 158 Blood Pressure Mean [Right Arm] Blood Pressure Position Blood Pressure Position [Right Arm] Pulse Oximetry Oxygen Delivery Method Oxygen Flow Rate Sepsis Recent Fever Within 48 Hours Sepsis New/Unexplained Change in Mental Status Sepsis Action Taken by Nursing Oxygen Flow Rate - Titration Pulse Oximetry Post Tiitration 01/10/25 16:15 01/10/25 16:15 01/10/25 16:15 Temperature Temperature Source Pulse Rate Pulse Rate [Apical] Pulse Rate from SpO2 Sensor Respiratory Rate Respiratory Effort / Characteristics Respiratory Depth Respiratory Pattern Blood Pressure 210/113 H 210/113 H 210/113 H Blood Pressure [Right Arm] Blood Pressure Mean 170 170 170 Blood Pressure Mean [Right Arm] Blood Pressure Position Blood Pressure Position [Right Arm] Pulse Oximetry Oxygen Delivery Method Oxygen Flow Rate Sepsis Recent Fever Within 48 Hours Sepsis New/Unexplained Change in Mental Status Sepsis Action Taken by Nursing Oxygen Flow Rate - Titration Pulse Oximetry Post Tiitration 01/10/25 16:18 Temperature Temperature Source Pulse Rate 109 H Pulse Rate [Apical] Pulse Rate from SpO2 Sensor Respiratory Rate 24 Respiratory Effort / Characteristics Respiratory Depth Respiratory Pattern Blood Pressure Blood Pressure [Right Arm] Blood Pressure Mean Blood Pressure Mean [Right Arm] Blood Pressure Position Blood Pressure Position [Right Arm] Pulse Oximetry 96 Oxygen Delivery Method Nasal Cannula Oxygen Flow Rate 2 Sepsis Recent Fever Within 48 Hours Sepsis New/Unexplained Change in Mental Status Sepsis Action Taken by Nursing Oxygen Flow Rate - Titration Pulse Oximetry Post Tiitration Laboratory Data 01/10/25 14:12 01/10/25 14:22 Lab Results 01/10/25 01/10/25 01/10/25 Range/Units 14:12 14:22 14:37 WBC 9.67 (4.8-10.8) K/ul RBC 5.02 (4.20-5.40) M/uL Hgb 15.0 (12.0-16.0) g/dl POC Hgb 13.9 (12.0-16.0) g/dl Hct 44.2 (37.0-47.0) % POC Hct 41 (37-47) % MCV 88.0 (80.0-100.0) fL MCH 29.9 (25.0-34.0) pg MCHC 33.9 (32.0-36.0) g/dL RDW Std Deviation 42.5 (36.4-46.3) fL RDW Coeff of Dodie 13.2 (11.5-14.5) % Plt Count 253 (130-400) K/uL MPV 9.3 L (9.4-12.4) fL Immature Gran % (Auto) 0.4 % Neut % (Auto) 63.9 % Lymph % (Auto) 24.7 % [place] % (Auto) 7.7 % Eos % (Auto) 2.3 % Baso % (Auto) 1.0 % Neut # (Auto) 6.18 (1.40-6.50) K/uL Lymph # (Auto) 2.39 (1.20-3.40) K/uL [place] # (Auto) 0.74 H (0.11-0.59) K/uL Eos # (Auto) 0.22 (0.00-0.50) K/uL Baso # (Auto) 0.10 (0.00-0.20) K/uL Immature Gran # (Auto) 0.04 (0.01-0.20) K/uL PT 10.3 (9.0-12.0) Seconds INR 1.0 (0.9-1.1) APTT 25 (21-31) Seconds PTT Ratio 0.9 POC Sodium 138 (135-144) mmol/L Sodium 137 (136-145) mmol/L POC Potassium 3.8 (3.3-5.0) mmol/L Potassium 3.7 (3.5-5.1) mmol/L POC Chloride 100 L (101-112) mmol/L Chloride 101 (98-107) mmol/L Carbon Dioxide 23 (21-32) mmol/L POC Total CO2 23 L (24-31) mmol/L Anion Gap 13 H (3-11) POC Anion Gap 19.0 (16-25) mmol/L POC BUN 15 (7-18) mg/dl BUN 15 (6-23) mg/dl Creatinine 1.04 (0.6-1.2) mg/dl POC Creatinine 1.0 (0.6-1.3) mg/dl Est Cr Clr Drug Dosing Not Reportable eGFR 55.36 BUN/Creatinine Ratio 14.4 (10-20) Glucose 254 H (70-99(Fasting)) mg/dl POC Glucose (other) 245 H (70-99) mg/dl Calcium 9.5 (8.6-10.3) mg/dl POC Ioniz Calcium [place] 1.14 (1.12-1.32) mmol/l Magnesium 1.6 L (1.7-2.4) mg/dl Total Bilirubin 0.9 (0.2-1.0) mg/dl AST 15 (13-39) U/L ALT 12 (7-52) U/L Alkaline Phosphatase 93 (34-104) U/L Troponin I High Sens 21.8 H (0-14) pg/ml Total Protein 7.1 (6.0-8.3) gm/dl Albumin 4.0 (3.4-5.0) gm/dl Globulin 3.1 (2.5-4.0) gm/dl Albumin/Globulin Ratio 1.3 (0.9-2) Ethyl Alcohol mg/dL (<10.0) mg/dl 10/18/25 Range/Units 15:18 WBC (4.8-10.8) K/ul RBC (4.20-5.40) M/uL Hgb (12.0-16.0) g/dl POC Hgb (12.0-16.0) g/dl Hct (37.0-47.0) % POC Hct (37-47) % MCV (80.0-100.0) fL MCH (25.0-34.0) pg MCHC (32.0-36.0) g/dL RDW Std Deviation (36.4-46.3) fL RDW Coeff of Dodie (11.5-14.5) % Plt Count (130-400) K/uL MPV (9.4-12.4) fL Immature Gran % (Auto) % Neut % (Auto) % Lymph % (Auto) % [place] % (Auto) % Eos % (Auto) % Baso % (Auto) % Neut # (Auto) (1.40-6.50) K/uL Lymph # (Auto) (1.20-3.40) K/uL [place] # (Auto) (0.11-0.59) K/uL Eos # (Auto) (0.00-0.50) K/uL Baso # (Auto) (0.00-0.20) K/uL Immature Gran # (Auto) (0.01-0.20) K/uL PT (9.0-12.0) Seconds INR (0.9-1.1) APTT (21-31) Seconds PTT Ratio POC Sodium (135-144) mmol/L Sodium (136-145) mmol/L POC Potassium (3.3-5.0) mmol/L Potassium (3.5-5.1) mmol/L POC Chloride (101-112) mmol/L Chloride (98-107) mmol/L Carbon Dioxide (21-32) mmol/L POC Total CO2 (24-31) mmol/L Anion Gap (3-11) POC Anion Gap (16-25) mmol/L POC BUN (7-18) mg/dl BUN (6-23) mg/dl Creatinine (0.6-1.2) mg/dl POC Creatinine (0.6-1.3) mg/dl Est Cr Clr Drug Dosing eGFR BUN/Creatinine Ratio (10-20) Glucose (70-99(Fasting)) mg/dl POC Glucose (other) (70-99) mg/dl Calcium (8.6-10.3) mg/dl POC Ioniz Calcium [place] (1.12-1.32) mmol/l Magnesium (1.7-2.4) mg/dl Total Bilirubin (0.2-1.0) mg/dl AST (13-39) U/L ALT (7-52) U/L Alkaline Phosphatase (34-104) U/L Troponin I High Sens (0-14) pg/ml Total Protein (6.0-8.3) gm/dl Albumin (3.4-5.0) gm/dl Globulin (2.5-4.0) gm/dl Albumin/Globulin Ratio (0.9-2) Ethyl Alcohol mg/dL < 10.0 (<10.0) mg/dl Administered Medications Magnesium Sulfate/Dextrose (Magnesium Sulfate / D5w) 1 gm in 100 mls @ 50 mls/hr IV Q2H SANDRA Stop: 01/10/25 20:14 Last Admin: 01/10/25 16:34 Dose: 50 mls/hr Documented By: BLOSSOM Discontinued Medications Hydralazine HCl (Hydralazine Hcl 20 Mg/Ml Vial) 10 mg IV NOW STA Stop: 01/10/25 16:13 Last Admin: 01/10/25 16:31 Dose: 10 mg Documented By: BLOSSOM Ioversol (Optiray 320 125ml) 112 ml IV ONCE ONE Stop: 01/10/25 14:21 Last Admin: 01/10/25 14:20 Dose: 112 ml Documented By: VIANEY Labetalol HCl (Labetalol Hcl Iv 5 Mg/Ml 20ml) 10 mg IV NOW STA Stop: 01/10/25 14:30 Last Admin: 01/10/25 14:40 Dose: 10 mg Documented By: ROLANDA Levetiracetam (Levetiracetam 500 Mg/5 Ml Vial) 1,000 mg IV NOW STA Stop: 01/10/25 14:28 Last Admin: 01/10/25 14:40 Dose: 1,000 mg Documented By: ROLANDA Metoprolol Tartrate (Metoprolol Tartrate 25 Mg Tab) 25 mg PO NOW STA Stop: 01/10/25 15:52 Last Admin: 01/10/25 16:02 Dose: 25 mg Documented By: BLOSSOM Imaging Data Radiologist's Impression: Head CT 01/10/25 14:10 Exam: CT of the head without contrast. Exam reason: Neurodeficit. Comparison: No prior examinations available for comparison. Technique: Multiple sequential contiguous slices through the calvarium were obtained without contrast. Findings: There is Moderate generalized atrophy at the upper limits of expected for age. There is bilateral symmetric periventricular hypodensity. This is a nonspecific finding but most likely attributed to chronic microvascular ischemic change. Additionally, there is encephalomalacia noted in the left temporoparietal lobe. There is no evidence of acute intracranial hemorrhage, mass effect or midline shift. The orbits and orbital contents are unremarkable. No acute bony abnormalities are identified. Impression: 1. Atrophy and chronic microvascular ischemic changes without evidence of acute abnormality. Electronically signed by Masoud Velazquez 01-10-2025 2:50 PM Head CTA 01/10/25 14:10 Head CTA: Exam reason: Neurodeficit. Procedure: Axial pain sections CT scans were obtained through the head during a dynamic injection of intravenous contrast. Three-dimensional reconstructions were performed and displayed at multiple angles. Findings: The middle cerebral, anterior cerebral and posterior cerebral arteries are in normal position and location. There is no evidence of stenosis, occlusion or deviation of the major vessels. Impression: Normal head CT angiogram. Electronically signed by Masoud Velazquez 01-10-2025 3:01 PM Neck CTA 01/10/25 14:10 CTA neck: Exam reason: Neurodeficit. Comparison: No prior examinations available for comparison. Neck CTA procedure: Axial plane sections CT scans were obtained through the neck during a dynamic injection of intravenous contrast. Three-dimensional reconstructions were performed and displayed at multiple angles. Findings for the right side: Evaluation of the right proximal/mid/distal common carotid arteries demonstrates no hemodynamically significant occlusion. There is atherosclerotic calcification noted within the carotid bulb. This is causing less than 20% stenosis. The proximal/distal internal carotid artery is normal. There is no significant stenosis within the external carotid artery. There isnormal flow within the right vertebral artery. Findings for the left side: Evaluation of the left proximal/mid/distal common carotid arteries demonstrates no hemodynamically significant occlusion. The left carotid bulb is normal. There is atherosclerotic calcification noted in the proximal internal carotid artery. This is causing less than 20% stenosis. Impression: 1. There is less than 20% stenosis noted in the right common carotid artery and within the left proximal internal carotid artery. No significant flow-limiting stenosis is noted on either side. Electronically signed by Masoud Velazquez 01-10-2025 2:57 PM Discharge Plan Visit Data Chief Complaint: Stroke Alert ED Provider: Abbie Cain Discharge Problem: Hypertensive emergency, Acute hyperglycemia, Seizure Patient Disposition: Admitted As Inpatient Condition: Fair Forms Stand Alone Forms: My [facility] Prescriptions Prescriptions: No Action Centrum Silver Women 8 mg iron-400 mcg-300 mcg Tablet 1 tab PO DAILY empagliflozin 25 mg Tablet 0 mg PO DAILY Rx Instructions: UNABLE TO VERIFY WITH PT BUT SON THINKS SHE STILL TAKES IT Eliquis 5 mg tablet 5 mg PO BID Qty: 60 0RF atorvastatin 80 mg tablet 80 mg PO DAILY Trulicity 3 mg/0.5 mL pen injector 3 mg SUBCUT WK Referrals Referrals: Indira Argueta DO [Primary Care Provider] -
[2025-01-10] MEDS: LABETALOL HCL IV 5 MG/ML 20ML IV STA (14:40)
[2025-01-10 14:47] LABS: Hematocrit (blood only) 44.2 % (37.0-47.0); Hemoglobin 15.0 g/dl (12.0-16.0); Immature Granulocytes # (auto) 0.04 K/uL (0.01-0.20); Immature Granulocytes % (auto) 0.4 %; Mean Corpuscular Hemoglobin 29.9 pg (25.0-34.0); Mean Corpuscular Volume 88.0 fL (80.0-100.0); Platelet Count 253 K/uL (130-400); RDW Standard Deviation 42.5 fL (36.4-46.3); Red Blood Count 5.02 M/uL (4.20-5.40); White Blood Count 9.67 K/ul (4.8-10.8)
--- NOTE | 2025-01-10 14:51 | CT Scan Report ---
Exam: CT of the head without contrast. Exam reason: Neurodeficit. Comparison: No prior examinations available for comparison. Technique: Multiple sequential contiguous slices through the calvarium were obtained without contrast. Findings: There is Moderate generalized atrophy at the upper limits of expected for age. There is bilateral symmetric periventricular hypodensity. This is a nonspecific finding but most likely attributed to chronic microvascular ischemic change. Additionally, there is encephalomalacia noted in the left temporoparietal lobe. There is no evidence of acute intracranial hemorrhage, mass effect or midline shift. The orbits and orbital contents are unremarkable. No acute bony abnormalities are identified. Impression: 1. Atrophy and chronic microvascular ischemic changes without evidence of acute abnormality. Electronically signed by Masoud Velazquez 01-10-2025 2:50 PM
[2025-01-10 14:56] LABS: Alanine Aminotransferase 12 U/L (7-52); Albumin Globulin Ratio 1.3 (0.9-2); Albumin Level 4.0 gm/dl (3.4-5.0); Alkaline Phosphatase 93 U/L (34-104); Anion Gap 13 (3-11); Bilirubin,Total 0.9 mg/dl (0.2-1.0); Blood Urea Nitrogen 15 mg/dl (6-23); Calcium 9.5 mg/dl (8.6-10.3); Carbon Dioxide 23 mmol/L (21-32); Chloride 101 mmol/L (98-107); Globulin 3.1 gm/dl (2.5-4.0); Glucose 254 mg/dl (70-99(Fasting)); Magnesium 1.6 mg/dl (1.7-2.4); Potassium 3.7 mmol/L (3.5-5.1); Sodium 137 mmol/L (136-145); Total Protein 7.1 gm/dl (6.0-8.3)
--- NOTE | 2025-01-10 14:57 | CT Scan Report ---
CTA neck: Exam reason: Neurodeficit. Comparison: No prior examinations available for comparison. Neck CTA procedure: Axial plane sections CT scans were obtained through the neck during a dynamic injection of intravenous contrast. Three-dimensional reconstructions were performed and displayed at multiple angles. Findings for the right side: Evaluation of the right proximal/mid/distal common carotid arteries demonstrates no hemodynamically significant occlusion. There is atherosclerotic calcification noted within the carotid bulb. This is causing less than 20% stenosis. The proximal/distal internal carotid artery is normal. There is no significant stenosis within the external carotid artery. There isnormal flow within the right vertebral artery. Findings for the left side: Evaluation of the left proximal/mid/distal common carotid arteries demonstrates no hemodynamically significant occlusion. The left carotid bulb is normal. There is atherosclerotic calcification noted in the proximal internal carotid artery. This is causing less than 20% stenosis. Impression: 1. There is less than 20% stenosis noted in the right common carotid artery and within the left proximal internal carotid artery. No significant flow-limiting stenosis is noted on either side. Electronically signed by Masoud Velazquez 01-10-2025 2:57 PM
--- NOTE | 2025-01-10 15:01 | CT Scan Report ---
Head CTA: Exam reason: Neurodeficit. Procedure: Axial pain sections CT scans were obtained through the head during a dynamic injection of intravenous contrast. Three-dimensional reconstructions were performed and displayed at multiple angles. Findings: The middle cerebral, anterior cerebral and posterior cerebral arteries are in normal position and location. There is no evidence of stenosis, occlusion or deviation of the major vessels. Impression: Normal head CT angiogram. Electronically signed by Masoud Velazquez 01-10-2025 3:01 PM
[2025-01-10 15:21] LABS: INR 1.0 (0.9-1.1); Partial Thromboplastin Time 25 Seconds (21-31); Prothrombin Time 10.3 Seconds (9.0-12.0)
[2025-01-10] MEDS: METOPROLOL TARTRATE 25 MG TAB PO STA (16:02)
[2025-01-10] MEDS ORDERED: CARBOHYDRATES FOR HYPOGLYCEMIA PO PRN (16:09)
[2025-01-10] MEDS ORDERED: DEXTROSE 50% 50 ML SYRINGE IV PRN (16:09)
[2025-01-10] MEDS ORDERED: GLUCAGON FOR INJ 1 MG VIAL SQ PRN (16:09)
[2025-01-10] MEDS ORDERED: GLUCOSE 40% GEL 15 GM TUBE PO PRN (16:09)
[2025-01-10] MEDS ORDERED: GLUCOSE 10 TAB/TUBE PO PRN (16:09)
--- NOTE | 2025-01-10 16:09 | History & Physical Report ---
Date of Service January 10, 2025 Assessment & Plan (1) Seizure disorder: Plan: Seizure with postictal state following lunch at restaurant this afternoon Recovered now and remains stable without any neurodeficit CT of the Head,CTAs of Head and neck-unremarkable Will get EEG Received loading dose of Keppra with 1000 mg IV Will put Ativan IV as seizure precaution Will observe her in the telemetry unit and get a neuro consult Further Keppra dosing after reevaluation by neurologist tomorrow morning-likely 500 mg IV twice daily (2) Elevated troponin: Plan: Initial troponin was 21.8 EKG did show some nonspecific ST-T changes involving V1 Second set of troponin went up to 208.9 Will get 2 more sets of troponin and repeat EKG now now Already being anticoagulated Will get echo of the heart and may need cardiac consult (3) Hypertension: Plan: Noted to have very high blood pressure of systolic more than 230 on admission Has not been taking any medications for blood pressure Received a dose of labetalol 10 mg IV and the blood pressure has been improving Will start Lopressor 25 mg twice daily (4) Type 2 diabetes mellitus: Plan: Continue current medications Will put her on sliding scale insulin coverage while in the hospital (5) Major depressive disorder: Plan: Has not been taking any medications for depression (6) Chronic kidney disease (CKD): (7) History of cerebrovascular accident: Plan: no sequela from the prior stroke (8) Bilateral pulmonary embolism: Plan: 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 The patient was leaving the restaurant following lunch and at the parking a lot her son noticed her to be little bit unusual with nodding the head and rolling the eye up and also at that time she was about to fall. She was helped by the son and the son later to sit on the floor and following that she has had shaking episodes involving the head extremities and also she lost consciousness during that episode. There is no history of significant trauma and no tongue bite and no incontinence. She cannot remember anything since this happening and even cannot remember that she was in ambulance and she woke up in the emergency room. She was noted to have a very high blood pressure of more than 200 systolic and her initial investigation including CTA and CT of the head were unremarkable. She came down completely and the stroke alert was canceled and she received a loading dose of Keppra. By the time I saw her in the emergency room she is alert awake and oriented x 3 and she did not have any neurological impairment and did not have any other distress. she was admitted to telemetry unit for continuation of care Allergies Allergy/AdvReac Type Severity Reaction Status Date / Time No Known Allergies Allergy Verified 06/14/22 22:03 Home Medications Medication Instructions Recorded Confirmed Type empagliflozin 25 mg tablet 0 mg PO DAILY 11/18/21 01/10/25 History [id number] 8 mg-folic 400 1 tab PO DAILY 11/18/21 01/10/25 History mcg-K 50 mcg-lutein 300 mcg tablet (Centrum Silver Women) apixaban 5 mg tablet (Eliquis) 5 mg PO BID #60 tabs 11/22/21 01/10/25 Rx atorvastatin 80 mg tablet 80 mg PO DAILY 01/10/25 01/10/25 History dulaglutide 3 mg/0.5 mL 3 mg subcut WK 01/10/25 01/10/25 History subcutaneous pen injector (Trulicity) Past Med/Surg History Problem List (Updated 01/10/25 @ 17:03 by bAbie Cain DO) Seizure (Acute) Hypertensive emergency (Acute) Seizure disorder Acute hyperglycemia (Acute) Trimalleolar fracture of ankle, closed Bilateral pulmonary embolism (Acute) Hyperlipidemia Diabetic retinopathy Type 2 diabetes mellitus Hypertension Chronic kidney disease (CKD) Major depressive disorder Medical History Chronic kidney disease (CKD) Diabetic retinopathy Dyspnea Elevated troponin History of cerebrovascular accident Hyperlipidemia Hypertension Hypoxia Major depressive disorder Trimalleolar fracture of ankle, closed Type 2 diabetes mellitus Surgical History History of ankle surgery History of section History of cholecystectomy History of total knee arthroplasty Family History Mother Ovarian cancer Parkinson disease Social History Smoking Status: Never smoker Hx Alcohol Use: No Hx Substance Use: No Preferred Language: Danish Communication Ability: Effective Physiologist Required: No Beliefs That Will Affect Care: None marital status: Current Living Situation: Family How many Children do You have: 1 Feels Safe at Home: Yes Safety Concerns: Feels Safe At This Time Assistive Devices: Bedside Commode, Walker and Wheelchair Review of Systems Review of Systems: All systems reviewed and are unremarkable except as noted below Physical Exam Physical Exam: Lying in bed anxious but no other apparent distress Constitutional: well developed, well nourished, + ill appearing and + obese Eyes: PERRL, conjunctivae normal, anicteric sclerae ENMT: external ear and nose normal, oropharynx normal Neck: trachea midline, no thyromegaly Respiratory: no respiratory distress Auscultation: lungs clear to auscultation bilaterally Cardiovascular: Rate/Rhythm: regular rate and regular rhythm; not tachycardic Heart Sounds: normal S1 and normal S2; no murmur Extremities: + edema ( trace edema bilaterally) Gastrointestinal (Abdomen): Inspection/Auscultation: normal bowel sounds; abdomen not distended Percussion/Palpation: abdomen soft; abdomen nontender Musculoskeletal: no acute arthritis involving any of the joint Neurologic: normal touch/pain/proprioception and moves all extremities; no focal motor deficits Lymphatic: no cervical or axillary lymphadenopathy Results & Data Results & Data Vital Signs (Past 12 Hours) Vital Signs Temp Pulse Resp BP Pulse Ox O2 Del Method O2 Flow Rate 01/10/25 15:01 101 H 163/98 H 01/10/25 14:56 85 L Room Air 01/10/25 14:46 112 H 01/10/25 14:45 110 H 28 H 138/100 96 Nasal Cannula 4 01/10/25 14:40 113 H 200/97 H 01/10/25 14:37 112 H 18 200/97 H 96 Nasal Cannula 4 01/10/25 14:30 112 H 24 200/103 H 93 Nasal Cannula 2 01/10/25 14:15 36.6 C 105 H 14 200/100 H 85 L Room Air Laboratory Results Short CBC 01/10/25 Range/Units 14:12 WBC 9.67 (4.8-10.8) K/ul Hgb 15.0 (12.0-16.0) g/dl Hct 44.2 (37.0-47.0) % Plt Count 253 (130-400) K/uL BMP 01/10/25 14:22 Sodium 137 Potassium 3.7 Chloride 101 Carbon Dioxide 23 BUN 15 Creatinine 1.04 Glucose 254 H Calcium 9.5 Liver Function 01/10/25 Range/Units 14:22 Total Bilirubin 0.9 (0.2-1.0) mg/dl AST 15 (13-39) U/L ALT 12 (7-52) U/L Alkaline Phosphatase 93 (34-104) U/L Albumin 4.0 (3.4-5.0) gm/dl Medications Administered Current Inpatient Medications Metoprolol Tartrate (Metoprolol Tartrate 25 Mg Tab) 25 mg PO BID SANDRA Stop: 02/09/25 20:59
[2025-01-10] MEDS: MAGNESIUM SULFATE / D5W 1 GM/100 ML BAG IV SCH (16:34)
[2025-01-10 18:07] LABS: Amphetamines+Metham, Urine Neg (Neg); MDMA (Ecstacy), Urine Neg (Neg); Marijuana, Urine Neg (Neg)
[2025-01-10] MEDS: INSULIN ASPART PER UNIT CHARGE SC SCH (18:34)
[2025-01-10] MEDS ORDERED: LORazepam Inj 2 MG in SYRINGE 1 ML IV PRN (19:27)
--- NOTE | 2025-01-10 20:13 | Neurology Consultation ---
Date of Consultation January 10, 2025 Assessment & Plan (1) Seizure: New onset seizure in a patient with multiple prior strokes and cortical injury. Agree with Keppra Plan Recommend to start the patient on 750 mg of Keppra twice daily. I discussed with the patient that seizures can happen at any point after strokes Use Ativan as needed Continue Eliquis for stroke prevention Will follow EEG. Needs to follow-up with neurology after discharge Educate about seizures. Seizure precautions: Do not drive. Avoid all other activities in which a sudden loss of consciousness would be dangerous, including but not limited to unsecured heights (scaffolding, ladders...), heavy machiner or machine tools or other machinery with moving parts, open flame, swimming pools (keeping in mind that a bathtub full of water is a small swimming pool), etc. Telehealth Consultation Telehealth Information Telehealth Information: I performed this visit using a real-time telehealth connection between my location and the patients originating location ([facility]). After connecting through interactive tele-video, patient was identified by name and date of and/or wristband check.Patient (or authorized healthcare admissions representative) was informed that this was a telemedicine visit and it was being conducted confidentially over secure lines. My office door was closed and no one else was present in the room with me.Patient (or authorized healthcare admissions representative) provided consent to proceed with the visit, expressed an understanding of privacy and security of the telemedicine visit, and gave permission to have a hospital admissions representative in the room in order to assist with the visit and to conduct portions of the visit, as needed. I informed the patient (or authorized healthcare admissions representative) that I reviewed their record and presented the opportunity for them to ask any questions regarding the visit today. The patient agreed to participate. History of Present Illness Reason for Consultation: seizures Requesting Physician: Maxwell Wilson MD Attending Physician: Maxwell Wilson MD History of Present Illness The patient is a 79-year-old female patient with PMH of recurrent strokes likely related to A-fib on Eliquis, history of pulmonary embolisms, history of type II DM, neuropathy, HTN, HLP, with no prior history of seizures. The patient was at a restaurant when he fell when she appeared fatigued with nodding of her head with her eyes back and had a generalized tonic-clonic seizure after which she was confused The event included tongue biting. The patient does not remember much of the event. She reports feeling good today with no current focal neurological deficits. Allergies Allergy/AdvReac Type Severity Reaction Status Date / Time No Known Allergies Allergy Verified 06/14/22 22:03 Home Medications Medication Instructions Recorded Confirmed Type empagliflozin 25 mg tablet 0 mg PO DAILY 11/18/21 01/10/25 History yvfwdotj-pbjt-[id number] 8 mg-folic 400 1 tab PO DAILY 11/18/21 01/10/25 History mcg-K 50 mcg-lutein 300 mcg tablet (Centrum Silver Women) apixaban 5 mg tablet (Eliquis) 5 mg PO BID #60 tabs 11/22/21 01/10/25 Rx atorvastatin 80 mg tablet 80 mg PO DAILY 01/10/25 01/10/25 History dulaglutide 3 mg/0.5 mL 3 mg subcut WK 01/10/25 01/10/25 History subcutaneous pen injector (Trulicity) Patient History Medical History Chronic kidney disease (CKD) Diabetic retinopathy Dyspnea Elevated troponin History of cerebrovascular accident Hyperlipidemia Hypertension Hypoxia Major depressive disorder Trimalleolar fracture of ankle, closed Type 2 diabetes mellitus Surgical History History of ankle surgery History of section History of cholecystectomy History of total knee arthroplasty Family History Mother Ovarian cancer Parkinson disease Social History Smoking Status: Never smoker Hx Alcohol Use: No Hx Substance Use: No Preferred Language: Luxembourger Communication Ability: Effective Drainage Design Coordinator Required: No Beliefs That Will Affect Care: None marital status: Current Living Situation: Family How many Children do You have: 1 Feels Safe at Home: Yes Safety Concerns: Feels Safe At This Time Assistive Devices: Bedside Commode, Walker and Wheelchair Review of Systems Constitutional: Patient denies weight loss, fever, chills, and night sweats Eyes: Patient denies change in vision, tearing, pain, and redness ENT: Patient denies pain, bleeding, rhinorrhea, and dysphagia Cardiovascular: Patient denies chest pain, palpitation, dyspnea at rest, and dyspnea with exertion Respiratory: Patient denies shortness of breath, cough, wheezing, and productive cough GI: Patient denies reflux, pain, constipation, and diarrhea Skin: Patient denies rash, dryness, and itching Allergies/Immune System: Patient denies rhinorrhea, seasonal allergies, reaction to current MEDS, and joint swelling Endocrine: Patient denies weight loss, weight gain, temperature intolerance, and excessive thirst Neurological: All negative unless mentioned in the HPI Physical Exam General Constitutional: Appearance normally developed Head and face: normocephalic and atraumatic Eyes: no ptosis, no anisocoria, and no dysconjugate gaze Respiratory: normal effort Cardiovascular: regular rhythm and regular rate Abdomen: non distended Skin: no rashes, lesions, or ulcers noted Psychiatric: normal judgement and insight, normal mood, and normal affect NEUROLOGIC EXAMINATION: Mental Status:alert, oriented to time, place, person, normal recent memory, normal remote memory, normal attention span, normal concentration, normal language and normal fund of knowledge Cranial Nerves: CN 2 - no visual defect on confrontation and pupils round, equal, reactive to light CN 3, 4, 6 - extra-ocular movements intact and no nystagmus CN 5 - facial sensation intact CN 7 - no facial asymmetry CN 8 - intact hearing CN 9, 10 - palate symmetric, normal gag CN 11 - good shoulder shrug CN 12 - tongue midline MOTOR: Strength was at least antigravity throughout, Pronator drift was absent and There were no abnormal movements SENSATION: intact and symmetric to pinprick, light touch, vibration and joint position GAIT: Deferred the patient uses a walker COORDINATION: no ataxia with finger to nose testing and heel to briones testing REFLEXES: cannot assess over telemedicine Results & Data Vital Signs (Past 12 Hours) Vital Signs Temp Pulse Pulse Resp BP BP Pulse Ox 01/10/25 19:00 36.8 C 93 H 22 147/71 H 97 01/10/25 18:00 36.7 C 87 17 168/112 H 97 01/10/25 18:00 01/10/25 17:53 01/10/25 17:18 105 H 21 97 01/10/25 17:16 37.3 C 105 H 21 170/81 H 97 01/10/25 17:15 170/81 H 01/10/25 17:06 108 H 30 H 97 01/10/25 17:00 110 H 28 H 97 01/10/25 17:00 155/108 H 01/10/25 17:00 155/108 H 01/10/25 16:45 110 H 26 H 91 01/10/25 16:36 108 H 24 95 01/10/25 16:30 210/109 H 01/10/25 16:27 109 H 26 H 92 01/10/25 16:18 109 H 24 96 01/10/25 16:15 210/113 H 01/10/25 16:15 210/113 H 01/10/25 16:15 210/113 H 01/10/25 16:12 110 H 22 01/10/25 16:00 220/121 H 01/10/25 16:00 220/121 H 01/10/25 16:00 114 H 24 95 01/10/25 15:54 237/144 H 01/10/25 15:54 237/144 H 01/10/25 15:51 232/117 H 01/10/25 15:51 36.8 C 113 H 24 237/144 H 98 01/10/25 15:01 101 H 163/98 H 01/10/25 14:56 85 L 01/10/25 14:46 112 H 01/10/25 14:45 110 H 28 H 138/100 96 01/10/25 14:40 113 H 200/97 H 01/10/25 14:37 112 H 18 200/97 H 96 01/10/25 14:30 112 H 24 200/103 H 93 01/10/25 14:15 36.6 C 105 H 14 200/100 H 85 L O2 Del Method O2 Flow Rate 01/10/25 19:00 Room Air 01/10/25 18:00 Nasal Cannula 2 01/10/25 18:00 Nasal Cannula 2 01/10/25 17:53 Nasal Cannula 2 01/10/25 17:18 Nasal Cannula 2 01/10/25 17:16 Nasal Cannula 2 01/10/25 17:15 01/10/25 17:06 01/10/25 17:00 01/10/25 17:00 01/10/25 17:00 01/10/25 16:45 01/10/25 16:36 01/10/25 16:30 01/10/25 16:27 01/10/25 16:18 Nasal Cannula 2 01/10/25 16:15 01/10/25 16:15 01/10/25 16:15 01/10/25 16:12 01/10/25 16:00 01/10/25 16:00 01/10/25 16:00 Nasal Cannula 2 01/10/25 15:54 01/10/25 15:54 01/10/25 15:51 01/10/25 15:51 Nasal Cannula 4 01/10/25 15:01 01/10/25 14:56 Room Air 01/10/25 14:46 01/10/25 14:45 Nasal Cannula 4 01/10/25 14:40 01/10/25 14:37 Nasal Cannula 4 01/10/25 14:30 Nasal Cannula 2 01/10/25 14:15 Room Air Laboratory Results Abnormal lab results 01/10/25 01/10/25 01/10/25 Range/Units 14:12 14:22 14:37 MPV 9.3 L (9.4-12.4) fL Boyle # (Auto) 0.74 H (0.11-0.59) K/uL POC Chloride 100 L (101-112) mmol/L POC Total CO2 23 L (24-31) mmol/L Anion Gap 13 H (3-11) Glucose 254 H (70-99(Fasting)) mg/dl POC Glucose (70-99) mg/dl POC Glucose (other) 245 H (70-99) mg/dl Magnesium 1.6 L (1.7-2.4) mg/dl Troponin I High Sens 21.8 H (0-14) pg/ml 01/10/25 01/10/25 01/10/25 Range/Units 16:36 17:36 18:06 MPV (9.4-12.4) fL Boyle # (Auto) (0.11-0.59) K/uL POC Chloride (101-112) mmol/L POC Total CO2 (24-31) mmol/L Anion Gap (3-11) Glucose (70-99(Fasting)) mg/dl POC Glucose 341 H* 356 H* (70-99) mg/dl POC Glucose (other) (70-99) mg/dl Magnesium (1.7-2.4) mg/dl Troponin I High Sens 208.9 H* D (0-14) pg/ml 01/10/25 Range/Units 18:08 MPV (9.4-12.4) fL Boyle # (Auto) (0.11-0.59) K/uL POC Chloride (101-112) mmol/L POC Total CO2 (24-31) mmol/L Anion Gap (3-11) Glucose (70-99(Fasting)) mg/dl POC Glucose 384 H* (70-99) mg/dl POC Glucose (other) (70-99) mg/dl Magnesium (1.7-2.4) mg/dl Troponin I High Sens (0-14) pg/ml Diagnostic Findings CT scan of the head shows areas of encephalomalacia within the left posterior MCA distribution, left 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 CTA of the head and neck showed scattered atherosclerotic disease without significant stenosis EEG is pending. Chest x-ray show no cardiopulmonary findings Medications Administered Home Medications Medication Instructions Recorded Confirmed Last Taken empagliflozin 25 mg tablet 0 mg PO DAILY 11/18/21 01/10/25 06/13/22 vuqwtxjr-smsp-iopj 8 mg-folic 400 1 tab PO DAILY 11/18/21 01/10/25 06/13/22 mcg-K 50 mcg-lutein 300 mcg tablet (Centrum Silver Women) apixaban 5 mg tablet (Eliquis) 5 mg PO BID #60 tabs 11/22/21 01/10/25 06/13/22 atorvastatin 80 mg tablet 80 mg PO DAILY 01/10/25 01/10/25 Unknown dulaglutide 3 mg/0.5 mL 3 mg subcut WK 01/10/25 01/10/25 Unknown subcutaneous pen injector (Trulicity) Active Medications Generic Name Dose Route Start Last Admin Trade Name Freq PRN Reason Stop Dose Admin Apixaban 5 mg 01/10/25 21:00 01/10/25 20:21 Apixaban 5 Mg Tablet PO 02/09/25 20:59 5 mg BID SANDRA Administration Insulin Aspart 0 units 01/10/25 16:30 01/10/25 18:34 Insulin Aspart Per Unit Charge SC 02/09/25 16:29 13 units ACHS SANDRA Administration Metoprolol Tartrate 25 mg 01/10/25 21:00 01/10/25 20:21 Metoprolol Tartrate 25 Mg Tab PO 02/09/25 20:59 25 mg BID SANDRA Administration
[2025-01-10] MEDS: METOPROLOL TARTRATE 25 MG TAB PO SCH (20:21)
[2025-01-10] MEDS: APIXABAN 5 MG TABLET PO SCH (20:21)
[2025-01-11 07:51] LABS: Hematocrit (blood only) 41.2 % (37.0-47.0); Hemoglobin 14.1 g/dl (12.0-16.0); Immature Granulocytes # (auto) 0.05 K/uL (0.01-0.20); Immature Granulocytes % (auto) 0.4 %; Mean Corpuscular Hemoglobin 30.1 pg (25.0-34.0); Mean Corpuscular Volume 88.0 fL (80.0-100.0); Platelet Count 267 K/uL (130-400); RDW Standard Deviation 43.5 fL (36.4-46.3); Red Blood Count 4.68 M/uL (4.20-5.40); White Blood Count 12.64 K/ul (4.8-10.8)
[2025-01-11] MEDS: EMPAGLIFLOZIN 25 MG TAB PO SCH (08:09)
[2025-01-11] MEDS: CEROVITE ADV FORMULA TAB PO SCH (08:10)
[2025-01-11 08:11] LABS: Alanine Aminotransferase 9.0 U/L (7-52); Albumin Globulin Ratio 1.2 (0.9-2); Albumin Level 3.3 gm/dl (3.4-5.0); Alkaline Phosphatase 76.0 U/L (34-104); Anion Gap 7.0 (3-11); Bilirubin,Total 1.2 mg/dl (0.2-1.0); Blood Urea Nitrogen 21.0 mg/dl (6-23); Calcium 9.1 mg/dl (8.6-10.3); Carbon Dioxide 28.0 mmol/L (21-32); Chloride 104.0 mmol/L (98-107); Cholesterol 208.0 mg/dl (0-200); Creatinine Clr Calc Pharmacy 41.2 ml/min; Globulin 2.8 gm/dl (2.5-4.0); Glucose 169.0 mg/dl (70-99(Fasting)); HDL Cholesterol 58.0 mg/dl; Magnesium 2.3 mg/dl (1.7-2.4); Potassium 3.9 mmol/L (3.5-5.1); Sodium 139.0 mmol/L (136-145); Total Protein 6.1 gm/dl (6.0-8.3); Triglycerides 80.0 mg/dl (0-150)
[2025-01-11] MEDS: ATORVASTATIN 40 MG TAB PO SCH (08:11)
[2025-01-11 09:12] LABS: Hemoglobin A1C 9.3 % (4.5-5.6)
[2025-01-11 09:25] LABS: Thyroid Stimulating Hormone 0.858 uIu/ml (0.300-4.500)
--- NOTE | 2025-01-11 10:19 | Hospitalist Progress Note ---
Date of Service January 11, 2025 Assessment & Plan (1) Seizure disorder: Plan: per admitting service notes with addendum: Seizure with postictal state following lunch at restaurant this afternoon Recovered now and remains stable without any neurodeficit CT of the Head,CTAs of Head and neck-unremarkable Will get EEG Received loading dose of Keppra with 1000 mg IV Will put Ativan IV as seizure precaution Will observe her in the telemetry unit and get a neuro consult Further Keppra dosing after reevaluation by neurologist tomorrow morning-likely 500 mg IV twice daily 03/13 no recurrence of seizures Neurologist recommends Keppra BID, seizures likely from previous CVA EEG pending PT/OT (2) Elevated troponin: Plan: Initial troponin was 21.8 EKG did show some nonspecific ST-T changes involving V1 Second set of troponin went up to 208.9 Will get 2 more sets of troponin and repeat EKG now now Already being anticoagulated Will get echo of the heart and may need cardiac consult 01/10 no cardiac symptoms trop 21 --> 208 --> 275 --> 175 EKG non specific T wave depressions inferior leads possible Demand Ischemia from HTN urgency, seizure episode echo pending Cardiology service consulted (3) Hypertension: Plan: Noted to have very high blood pressure of systolic more than 230 on admission Has not been taking any medications for blood pressure Received a dose of labetalol 10 mg IV and the blood pressure has been improving Will start Lopressor 25 mg twice daily 01/10 BP much improved monitor (4) Type 2 diabetes mellitus: Plan: Continue current medications Will put her on sliding scale insulin coverage while in the hospital (5) Major depressive disorder: Plan: Has not been taking any medications for depression (6) Chronic kidney disease (CKD): (7) History of cerebrovascular accident: Plan: no sequela from the prior stroke (8) Bilateral pulmonary embolism: Plan: History of bilateral pulmonary embolism on Eliquis She has been taking her medications regularly DVT prophylaxis Continue Eliquis CODE STATUS Full Admission and Anticipated Discharge Date Admission Date: January 10, 2025 Subjective seen resting in chair, comfortable alert, oriented x 3, answers all questions appropriately states she feels fine overall no headache, dizziness no chest pain, dyspnea, palpitations, dizziness no other symptoms Review of Systems Review of Systems: all noted and negative except for above Physical Exam Physical Exam: General- oriented x 3, not in distress, speaks in sentences with no effort or accessory muscle use Eyes- anicteric Neck- no JVD Lungs- clear breath sounds bilaterally, no rales/wheezes Heart- normal rate, regular rhythm; no murmurs Abdomen- normal bowel sounds, nondistended, soft, nontender Extremities- no pretibial edema, no calf tenderness Neuro- alert, oriented x 3; no gross focal neurologic deficits Skin- warm & dry Results & Data Results & Data Vital Signs (Past 12 Hours) Vital Signs Temp Pulse Pulse Resp BP Pulse Ox O2 Del Method 01/11/25 08:17 37.0 C 129 H 23 123/58 L 94 Room Air 01/11/25 07:29 Room Air 01/11/25 06:39 78 01/11/25 03:00 37.0 C 78 17 116/69 92 Room Air 01/11/25 00:37 75 01/10/25 23:00 37.3 C 78 18 110/64 94 Room Air all noted and reviewed including below
--- NOTE | 2025-01-11 11:00 | XCELERA ---
[id number]
--- NOTE | 2025-01-11 12:05 | Cardiology Consultation ---
<Statement entered by Lily Tavera, DO - 01/11/25 21:59> I have reviewed the advanced practitioner's documentation and agree with the plan of care. I accept the responsibility for the associated risk. Cardiology consulted due to concerns of elevated topronins and possible syncope vs seizures difficult to get a great history of the event and symptoms echo today reveals most significant findings of MV leaflet thickening and calcification resulting in some MS her episode could all be neurological in etiology but would recommend a zio patch upon discharge but she might benefit from a loop monitor as well she is on eliquis for a PE; ?given her MV findings not sure if technically we should switch to coumadin however I am concerned this will be difficult to monitor so not sure if it is better to be possibly slightly off label with the eliquis statin is recommended we need to clarify what anti-hypertensive agents she is taking at home pt will need cardiology f/u upon discharge Date of Consultation January 11, 2025 Assessment & Plan (1) Hypertensive emergency: (2) Seizure: Plan Patient is a 79-year-old female with history of hypertension, history of pulmonary emboli and diabetes. Admitted after an unresponsive episode possible seizure versus syncope. Patient does not recall events. Family reported seizure-like activity. No family present at time of evaluation today. Head and neck CTA unremarkable for stroke. She did have a minimally elevated troponin peaking at 275 without complaints of chest pain or unusual shortness of breath. EKG without acute ischemic changes. Echocardiogram was unremarkable demonstrating normal LVEF without wall motion abnormalities and possible mild mitral stenosis due to calcified mitral valve. No arrhythmias on telemetry. Elevated troponin likely secondary to hypertensive emergency on admission, type II demand ischemic event. Blood pressure now trending downward. Per outpatient records, patient was to be taking lisinopril 40 and carvedilol 12.5 mg twice daily but this is not on her home medication list on admission? Difficult to know she was taking her blood pressure medications. Recommendations: Neurology evaluation for possible Seizure and await EEG. continue on telemetry to r/o bradyarrhythmias. Consider outpatient ZIO monitor. Echo with preserved LVEF, mild MS with calcification of the mitral valve. Treat uncontrolled hypertension. Supplement magnesium - low on admission It is unclear what antihypertensive meds she is taking at home - BP currently borderline low. Continue Eliquis for history of pulmonary embolus. Continue statin. Case discussed with Dr. Tavera I spent a total of 60 minutes on the date of service in preparation, delivery, and documentation of the care provided to this patient, excluding any time spent in the performance of separately billed services. Meghann Louis PA-C Department of Cardiology, [facility] This chart was completed in part utilizing Speech Voice Recognition Software. Grammatical errors, random word insertions, pronoun errors, and incomplete sentences are an occasional consequence of this system due to software limitations, ambient noise, and hardware issues. Any formal questions or concerns about the content, text, or information contained within the body of this dictation should be directly addressed to the provider for clarification. History of Present Illness Reason for Consultation: Possible Syncope vs Seizure Requesting Physician: Lesa Hospitalist Attending Physician: Dr. Tavera History of Present Illness Patient is a 79-year-old female admitted to [facility] yesterday after a possible seizure versus syncopal episode. Episode was witnessed by family members. Apparently patient was confused prior to the event and began to fall and was lowered to the ground by family members. She has subsequently had seizure-like activity and her eyes rolled in the back of her head. She was then confused. Patient does not recall events. No family at bedside. Information was obtained from admission notes. History includes: 1. Hypertension 2. Dyslipidemia 3. History of pulmonary emboli on Eliquis 4. Diabetes mellitus Patient denies history of cardiovascular events or issues. She was in normal state of health yesterday until this event. Head and neck CT was unremarkable in the ER. EKG demonstrated sinus tach with possible LVH, non specific conduction delay. Mild ST depression in lateral leads. Repeat EKG dmeonstrated NSR without acute ischemic changes No chest pain or dyspnea reported. BP was significantly hypertensive on arrival and treated with IV labetalol and IV hydralazine. Now improving. Neurology consulted and patient treated with Keppra and Ativan for seizure activity. EEG pending. During admission, HS troponin mildly elevated and trended upward slightly - [phone] No chest pain during admission. At time of consult this morning, patient feeling well. No recurrent seizure like activity. Imaging has been unremarkable. No cardiac complaints despite minimally elevated troponin. Echo with preserved LVEF, mild mitral stenosis. No orthopnea, PND or edema. No fever, cough, chills. No arrhythmias on telemetry. Allergies Allergy/AdvReac Type Severity Reaction Status Date / Time No Known Allergies Allergy Verified 06/14/22 22:03 Home Medications Medication Instructions Recorded Confirmed Type empagliflozin 25 mg tablet 0 mg PO DAILY 11/18/21 01/10/25 History ebvonixd-lhqg-qccy 8 mg-folic 400 1 tab PO DAILY 11/18/21 01/10/25 History mcg-K 50 mcg-lutein 300 mcg tablet (Centrum Silver Women) apixaban 5 mg tablet (Eliquis) 5 mg PO BID #60 tabs 11/22/21 01/10/25 Rx atorvastatin 80 mg tablet 80 mg PO DAILY 01/10/25 01/10/25 History dulaglutide 3 mg/0.5 mL 3 mg subcut WK 01/10/25 01/10/25 History subcutaneous pen injector (Trulicity) Patient History Medical History Chronic kidney disease (CKD) Diabetic retinopathy Dyspnea Elevated troponin History of cerebrovascular accident Hyperlipidemia Hypertension Hypoxia Major depressive disorder Trimalleolar fracture of ankle, closed Type 2 diabetes mellitus Surgical History History of ankle surgery History of section History of cholecystectomy History of total knee arthroplasty Family History Mother Ovarian cancer Parkinson disease Social History Smoking Status: Never smoker Hx Alcohol Use: No Hx Substance Use: No Preferred Language: Czech Communication Ability: Effective House Painter Required: No Beliefs That Will Affect Care: None marital status: Current Living Situation: Family How many Children do You have: 1 Feels Safe at Home: Yes Safety Concerns: Feels Safe At This Time Assistive Devices: Bedside Commode, Walker and Wheelchair Review of Systems Review of Systems: All systems reviewed & are unremarkable except as noted in HPI & below Physical Exam Constitutional: WD/WN, vitals as above no acute distress Neck: trachea midline, no thyromegaly Respiratory: no respiratory distress and no labored breathing Auscultation: + diminished lung sounds; no crackles and no rales Cardiovascular: Rate/Rhythm: regular rate and regular rhythm Heart Sounds: normal S1 and normal S2; no murmur Vessels: no JVD Extremities: no edema Gastrointestinal (Abdomen): normal bowel sounds, soft, nontender, no hepatosplenomegaly Musculoskeletal: no cyanosis or clubbing, extremities motor strength 5/5 Neurologic: PERRL, EOMI, accommodation nl, no face palsy, no dysarthria Results & Data Vital Signs (Past 12 Hours) Vital Signs Temp Pulse Pulse Resp BP Pulse Ox O2 Del Method 01/11/25 11:22 36.8 C 75 19 97/67 L 94 Room Air 01/11/25 08:17 37.0 C 129 H 23 123/58 L 94 Room Air 01/11/25 07:29 Room Air 01/11/25 06:39 78 01/11/25 03:00 37.0 C 78 17 116/69 92 Room Air 01/11/25 00:37 75 Laboratory Results Cardiac Enzymes 01/10/25 01/10/25 01/10/25 Range/Units 14:22 16:36 22:47 AST 15 (13-39) U/L Troponin I High Sens 21.8 H 208.9 H* D 275.4 H* D (0-14) pg/ml 01/11/25 Range/Units 06:41 AST 12 L (13-39) U/L Troponin I High Sens 175.4 H* D (0-14) pg/ml Coagulation 01/10/25 Range/Units 14:12 PT 10.3 (9.0-12.0) Seconds APTT 25 (21-31) Seconds Lipids 01/11/25 Range/Units 06:41 Triglycerides 80 (0-150) mg/dl Cholesterol 208 H (0-200) mg/dl HDL Cholesterol 58 mg/dl Cholesterol/HDL Ratio 3.6 (0-5) CBC 01/10/25 01/11/25 Range/Units 14:12 06:41 WBC 9.67 12.64 H (4.8-10.8) K/ul RBC 5.02 4.68 (4.20-5.40) M/uL Hgb 15.0 14.1 (12.0-16.0) g/dl Hct 44.2 41.2 (37.0-47.0) % Plt Count 253 267 (130-400) K/uL Neut # (Auto) 6.18 9.77 H (1.40-6.50) K/uL Lymph # (Auto) 2.39 1.34 (1.20-3.40) K/uL [place] # (Auto) 0.74 H 1.26 H (0.11-0.59) K/uL Eos # (Auto) 0.22 0.16 (0.00-0.50) K/uL Baso # (Auto) 0.10 0.06 (0.00-0.20) K/uL Comprehensive Metabolic Panel 01/10/25 01/11/25 Range/Units 14:22 06:41 Sodium 137 139 (136-145) mmol/L Potassium 3.7 3.9 (3.5-5.1) mmol/L Chloride 101 104 (98-107) mmol/L Carbon Dioxide 23 28 (21-32) mmol/L BUN 15 21 (6-23) mg/dl Creatinine 1.04 1.19 (0.6-1.2) mg/dl Glucose 254 H 169 H (70-99(Fasting)) mg/dl Calcium 9.5 9.1 (8.6-10.3) mg/dl AST 15 12 L (13-39) U/L ALT 12 9 (7-52) U/L Alkaline Phosphatase 93 76 (34-104) U/L Total Protein 7.1 6.1 (6.0-8.3) gm/dl Albumin 4.0 3.3 L (3.4-5.0) gm/dl Intake and Output 01/10/25 01/11/25 01/11/25 22:59 06:59 14:59 Intake Total 188.333 / 188.333 Output Total 900 / 900 Balance 188.333 / -711.667 -900 / -711.667 Intake: IV 188.333 / 188.333 Magnesium Sulfate / D5w 1 gm In 188.333 / 188.333 100 ml @ 50 mls/hr IV Q2H SANDRA Rx#:[id number] Output: Urine Amount (Catheter) 900 / 900 External 900 / 900 Other: # Unmeasured Voids 1 Weight 86.2 kg Diagnostic Findings Telemetry reviewed: NSR ranging 70-90's. No concerning arrhythmias. Echocardiogram completed today 01/11/2025: Normal LV systolic function. No wall motion abnormalities. Ejection fraction 55 to 60%. Mild concentric LVH Grade 2 diastolic dysfunction Left atrium is moderately dilated The mitral valve leaflets and cords are calcified and there is at least mild mitral stenosis with mild MR. Head CT 01/10/25 14:10 Exam: CT of the head without contrast. Exam reason: Neurodeficit. Comparison: No prior examinations available for comparison. Technique: Multiple sequential contiguous slices through the calvarium were obtained without contrast. Findings: There is Moderate generalized atrophy at the upper limits of expected for age. There is bilateral symmetric periventricular hypodensity. This is a nonspecific finding but most likely attributed to chronic microvascular ischemic change. Additionally, there is encephalomalacia noted in the left temporoparietal lobe. There is no evidence of acute intracranial hemorrhage, mass effect or midline shift. The orbits and orbital contents are unremarkable. No acute bony abnormalities are identified. Impression: 1. Atrophy and chronic microvascular ischemic changes without evidence of acute abnormality. Electronically signed by Masoud Velazquez 01-10-2025 2:50 PM Head CTA 01/10/25 14:10 Head CTA: Exam reason: Neurodeficit. Procedure: Axial pain sections CT scans were obtained through the head during a dynamic injection of intravenous contrast. Three-dimensional reconstructions were performed and displayed at multiple angles. Findings: The middle cerebral, anterior cerebral and posterior cerebral arteries are in normal position and location. There is no evidence of stenosis, occlusion or deviation of the major vessels. Impression: Normal head CT angiogram. Electronically signed by Masoud Velazquez 01-10-2025 3:01 PM Neck CTA 01/10/25 14:10 CTA neck: Exam reason: Neurodeficit. Comparison: No prior examinations available for comparison. Neck CTA procedure: Axial plane sections CT scans were obtained through the neck during a dynamic injection of intravenous contrast. Three-dimensional reconstructions were performed and displayed at multiple angles. Findings for the right side: Evaluation of the right proximal/mid/distal common carotid arteries demonstrates no hemodynamically significant occlusion. There is atherosclerotic calcification noted within the carotid bulb. This is causing less than 20% stenosis. The proximal/distal internal carotid artery is normal. There is no significant stenosis within the external carotid artery. There isnormal flow within the right vertebral artery. Findings for the left side: Evaluation of the left proximal/mid/distal common carotid arteries demonstrates no hemodynamically significant occlusion. The left carotid bulb is normal. There is atherosclerotic calcification noted in the proximal internal carotid artery. This is causing less than 20% stenosis. Impression: 1. There is less than 20% stenosis noted in the right common carotid artery and within the left proximal internal carotid artery. No significant flow-limiting stenosis is noted on either side. Electronically signed by Masoud Velazquez 01-10-2025 2:57 PM Medications Administered Current Inpatient Medications Apixaban (Apixaban 5 Mg Tablet) 5 mg PO BID SANDRA Stop: 02/09/25 20:59 Last Admin: 01/11/25 08:11 Dose: 5 mg Atorvastatin Calcium (Atorvastatin 40 Mg Tab) 80 mg PO DAILY SANDRA Stop: 02/10/25 08:59 Last Admin: 01/11/25 08:11 Dose: 80 mg Dextrose (Dextrose 50% 50 Ml Syringe) 25 - 50 ml IV UD PRN; Protocol PRN Reason: Hypoglycemia Protocol Stop: 02/09/25 16:08 Empagliflozin (Empagliflozin 25 Mg Tab) 25 mg PO DAILY SANDRA Stop: 02/10/25 08:59 Last Admin: 01/11/25 08:09 Dose: 25 mg Glucagon (Glucagon For Inj 1 Mg Vial) 1 mg SQ UD PRN; Protocol PRN Reason: Hypoglycemia Protocol Stop: 02/09/25 16:08 Glucose (Glucose 40% Gel 15 Gm Tube) 15 - 30 gm PO UD PRN; Protocol PRN Reason: Hypoglycemia Protocol Stop: 02/09/25 16:08 Glucose (Glucose 10 Tab/Tube) 4 - 8 tab PO UD PRN; Protocol PRN Reason: Hypoglycemia Protocol Stop: 02/09/25 16:08 Lorazepam 2 mg/ Syringe 2 mls @ 2 mls/min IV NOW PRN PRN Reason: Breakthrough Seizures Stop: 02/09/25 19:26 Insulin Aspart (Insulin Aspart Per Unit Charge) 0 units SC ACHS SANDRA Stop: 02/09/25 16:29 Last Admin: 01/11/25 11:55 Dose: 2 units Levetiracetam (Levetiracetam Oral Soln 100mg/Ml) 750 mg PO BID SANDRA Stop: 02/09/25 20:59 Last Admin: 01/11/25 09:10 Dose: 750 mg Metoprolol Tartrate (Metoprolol Tartrate 25 Mg Tab) 25 mg PO BID SANDRA Stop: 02/09/25 20:59 Last Admin: 01/11/25 08:10 Dose: 25 mg Miscellaneous (Carbohydrates For Hypoglycemia ) 15 - 30 gm PO UD PRN PRN Reason: Hypoglycemia Protocol Stop: 02/09/25 16:08 Miscellaneous (Trulicity 3mg--Order Awaiting Action) 1 each N/A QS SANDRA Stop: 02/10/25 00:00 Last Admin: 01/11/25 08:12 Dose: Not Given Multivitamins/Minerals (Cerovite Adv Formula Tab) 1 tab PO DAILY SANDRA Stop: 02/10/25 08:59 Last Admin: 01/11/25 08:10 Dose: 1 tab PG Care Time/CCT Total # of Minutes Spent Total Time Spent with Patient: Total time spent is greater than 50% in coordination of care (as documented) at patient's floor/unit and/or counseling patient: 60 minutes Coding Level of Care Code 36915 INT INP/OBS CARE 3/75MIN Diagnoses Hypertensive emergency I16.1 Seizure R56.9
--- NOTE | 2025-01-11 19:51 | Electrocardiogram Report ---
Test Reason : Blood Pressure : */* mmHG Vent. Rate : 89 BPM Atrial Rate : 89 BPM P-R Int : 148 ms QRS Dur : 92 ms QT Int : 376 ms P-R-T Axes : 48 -22 -9 degrees QTcB Int : 457 ms Normal sinus rhythm Possible Left atrial enlargement Left ventricular hypertrophy ( R in aVL , [place] product ) Inferior infarct , age undetermined Abnormal ECG When compared with ECG of 10-Jan-2025 14:44, (unconfirmed) ST no longer depressed in Lateral leads Confirmed by Pawel Trimble ([id number]) on 01/11/2025 7:51:28 PM Referred By: REFERRED SELF Confirmed By: Pawel Trimble
--- NOTE | 2025-01-11 22:17 | Electrocardiogram Report ---
Test Reason : Blood Pressure : */* mmHG Vent. Rate : 110 BPM Atrial Rate : 110 BPM P-R Int : 158 ms QRS Dur : 96 ms QT Int : 344 ms P-R-T Axes : 48 -16 14 degrees QTcB Int : 465 ms Sinus tachycardia Possible Left atrial enlargement Minimal voltage criteria for LVH, may be normal variant ( [place] product ) Nonspecific ST abnormality Abnormal ECG When compared with ECG of 14-Jun-2022 21:24, Criteria for Anterior infarct are no longer Present Criteria for Inferior infarct are no longer Present ST now depressed in Lateral leads Confirmed by Pawel Trimble ([id number]) on 01/11/2025 10:17:10 PM Referred By: Confirmed By: Pawel Trimble
[2025-01-12 07:32] VITALS: RESP 18
[2025-01-12 07:46] VITALS: PULSE 87
--- NOTE | 2025-01-12 09:16 | Cardiology Progress Note ---
Date of Service January 12, 2025 Assessment & Plan (1) Seizure: (2) Hypertensive urgency: (3) Dyslipidemia, goal LDL below 70: (4) Hypertension: Plan 79 year old female admitted with new onset seizure - Evaluated by Neurology, prescribed Keppra, felt to be secondary to prior CVA's. - CT of the head dated 11/18/2021 revealed chronic left occipital, left cerebellar and bilateral frontal parietal infarcts, chronic lacunar infarcts of the right cerebellar hemisphere, chronic microvascular ischemic disease. Cardiology consultation requested secondary to elevated troponin - High-sensitivity troponin elevated as follows: 21.8 -> 208.9 -> 275.4 -> 175.4 pg/mL - Blood pressure markedly elevated initially, as high as 237/144 - EKG with lateral ST segment depression - Resting echocardiography with preserved LV systolic function. No regional wall motion abnormalities. - TTE also with Mild concentric LVH. Grade 2 diastolic dysfunction. Moderately dilated left atrium. Mixed mitral valve disease with at least mild mitral stenosis, mild mitral regurgitation. - Prior imaging with coronary artery atherosclerosis. - Patient asymptomatic in regards to chest pain or acute shortness of breath - Elevated troponin felt to be secondary to hypertensive urgency, demand ischemia, seizure - Recommend conservative medical management with aspirin, high intensity statin therapy, and beta-barbara therapy as below. Patient prescribed apixaban (Eliquis) secondary to past provoked pulmonary embolism circa 2021. Suspect noncompliance per outpatient chart review. No documented history of atrial fibrillation/flutter though presumed noting all of the above. [id number] Score 8 points. Recommend 14-day outpatient ambulatory EKG monitoring. Hypertensive urgency. Blood pressure significantly improved with just adding metoprolol tartrate. Suspect noncompliance with medications. Recommend carvedilol 3.125 mg twice a day to start. Follow. Dyslipidemia. LDL cholesterol goal < 70 mg/dL. LDL cholesterol 134 mg/dL this admission. Suspect noncompliance with atorvastatin. Resume atorvastatin 80 mg/day. Reassess Lipids and LFT's in 8-10 weeks, adding ezetimibe prior to PCSK9 Inhibitor therapy if needed. Coronary and aortic atherosclerosis. Recommend Aspirin 81 mg/day. Admission and Anticipated Discharge Date Admission Date: January 10, 2025 Supervising Physician Co-Signing Physician Notes Patient seen and examined. Past medical history, surgical history, social history and family history have been reviewed. The medical record and all the above studies have been reviewed. Case DW REBECCA including management. Seizure Hypertensive urgency - better Elevated troponin - likely due to demand ischemia H/O DVT Dyslipidemia, goal LDL below 70 ASA statin adjust anti-HTN meds keeping systolic BP between 100-140 mmHg medical management, risk factor modification from cardiac standpoint f/u in cardiology clinic post discharge Subjective Patient seen and examined. Chart, medications, telemetry reviewed. No chest pain, palpitations, shortness of breath, edema, melena, hematochezia, or hematuria. Telemetry: Sinus/sinus tachycardia throughout, heart rates predominantly in the 70s to 90s Review of Systems Review of Systems: Difficult to obtain. Limited historian Physical Exam Physical Exam: General: Alert to person and place. No acute distress. HENT: Normocephalic. Atraumatic. Eyes: PER. Conjunctiva pink, sclera clear. Neck: Bilateral carotid bruits. No overt JVD Heart: Regular, 100 bpm. Grade II/ systolic ejection murmur. No diastolic murmur appreciated. Lungs: Clear to auscultation. Abdomen: +BS. Soft. Nontender. No masses or organomegaly. Extremities: No significant lower extremity peripheral edema Pulses: Posterior tibial=2/4. Results & Data Vital Signs (Past 12 Hours) Vital Signs Temp Pulse Pulse Resp BP BP Pulse Ox 01/12/25 07:45 87 01/12/25 07:31 36.7 C 88 18 127/71 92 01/12/25 03:54 36.8 C 82 20 123/59 L 92 01/12/25 00:00 37.0 C 83 16 117/68 90 01/11/25 23:50 87 O2 Del Method 01/12/25 07:45 01/12/25 07:31 Room Air 01/12/25 03:54 Room Air 01/12/25 00:00 Room Air 01/11/25 23:50 PG Care Time/CCT Total # of Minutes Spent Total Time Spent with Patient: Total time spent is greater than 50% in coordination of care (as documented) at patient's floor/unit and/or counseling patient. I spent a total of 55 minutes on the date of service in preparation, delivery, and documentation of the care provided to this patient excluding any time spent in the performance of separately billed services. This visit was a split-shared visit with the substantive portion of the medical decision making performed by the supervising photographic plate maker/billing provider, Dr. You. Coding Level of Care Code 56447 SUB INP/OBS CARE 350MIN Diagnoses Seizure R56.9 Hypertensive urgency I16.0 Dyslipidemia, goal LDL below 70 E78.5 Hypertension I10
[2025-01-12 11:21] VITALS: BP 152/75; TEMP 98.2; O2SAT 96
--- NOTE | 2025-01-12 13:01 | Discharge Summary ---
Discharge Summary Date of Service January 12, 2025 Principal Dx & Hospital Course #1 = Principal Diagnosis (1) Seizure disorder: per admitting service notes with addendum: Seizure with postictal state following lunch at restaurant this afternoon Recovered now and remains stable without any neurodeficit CT of the Head,CTAs of Head and neck-unremarkable Will get EEG Received loading dose of Keppra with 1000 mg IV Will put Ativan IV as seizure precaution Will observe her in the telemetry unit and get a neuro consult Further Keppra dosing after reevaluation by neurologist tomorrow morning-likely 500 mg IV twice daily 03/13 no recurrence of seizures Neurologist recommends Keppra BID, seizures likely from previous CVA EEG pending- Please follow-up official result PT/OT- recommend return home, continue walker follow-up with neurologist as an outpatient (2) Elevated troponin: Initial troponin was 21.8 EKG did show some nonspecific ST-T changes involving V1 Second set of troponin went up to 208.9 Will get 2 more sets of troponin and repeat EKG now now Already being anticoagulated Will get echo of the heart and may need cardiac consult 01/10 no cardiac symptoms trop 21 --> 208 --> 275 --> 175 EKG non specific T wave depressions inferior leads possible Demand Ischemia from HTN urgency, seizure episode echo: LV systolic function is normal, mild concentric LVH, grade 2 diastolic dysfunction, LA moderately dilated, MV leaflets and cords are calcified and there is at least mild mitral stenosis with mild MR Cardiology service consulted 01/12 Cardiology service recommendations: Carvedilol 3.125 mg twice a day for blood pressure control Aspirin 81 mg daily for coronary and aortic atherosclerosis recommend Zio patch monitoring to rule out underlying A-fib given history of CVA (3) Hypertension: Noted to have very high blood pressure of systolic more than 230 on admission Has not been taking any medications for blood pressure Received a dose of labetalol 10 mg IV and the blood pressure has been improving Will start Lopressor 25 mg twice daily 01/12 Cardiology service recommending carvedilol 3.125 mg twice a day (4) Type 2 diabetes mellitus: Continue current medications Will put her on sliding scale insulin coverage while in the hospital A1c 9.3 Further evaluation and management with PCP (5) Major depressive disorder: Has not been taking any medications for depression (6) Chronic kidney disease (CKD): (7) History of cerebrovascular accident: no sequela from the prior stroke (8) Bilateral pulmonary embolism: History of bilateral pulmonary embolism on Eliquis She has been taking her medications regularly discharge to home PCP follow-up in 1 week Neurology follow-up in 2 to 3 weeks Cardiology service follow-up in 2 to 3 weeks Notes For Next Care Provider Medication Changes From Visit Keppra 750 mg p.o. twice daily Carvedilol 3.125 mg p.o. twice a day Aspirin 81 mg p.o. 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 The patient was leaving the restaurant following lunch and at the parking a lot her son noticed her to be little bit unusual with nodding the head and rolling the eye up and also at that time she was about to fall. She was helped by the son and the son later to sit on the floor and following that she has had shaking episodes involving the head extremities and also she lost consciousness during that episode. There is no history of significant trauma and no tongue bite and no incontinence. She cannot remember anything since this happening and even cannot remember that she was in ambulance and she woke up in the emergency room. She was noted to have a very high blood pressure of more than 200 systolic and her initial investigation including CTA and CT of the head were unremarkable. She came down completely and the stroke alert was canceled and she received a loading dose of Keppra. By the time I saw her in the emergency room she is alert awake and oriented x 3 and she did not have any neurological impairment and did not have any other distress. she was admitted to telemetry unit for continuation of care Admission Exam Per Admitting Provider Physical Exam: Lying in bed anxious but no other apparent distress Constitutional: well developed, well nourished, + ill appearing and + obese Eyes: PERRL, conjunctivae normal, anicteric sclerae ENMT: external ear and nose normal, oropharynx normal Neck: trachea midline, no thyromegaly Respiratory: no respiratory distress Auscultation: lungs clear to auscultation bilaterally Cardiovascular: Rate/Rhythm: regular rate and regular rhythm; not tachycardic Heart Sounds: normal S1 and normal S2; no murmur Extremities: + edema ( trace edema bilaterally) Gastrointestinal (Abdomen): Inspection/Auscultation: normal bowel sounds; abdomen not distended Percussion/Palpation: abdomen soft; abdomen nontender Musculoskeletal: no acute arthritis involving any of the joint Neurologic: normal touch/pain/proprioception and moves all extremities; no focal motor deficits Lymphatic: no cervical or axillary lymphadenopathy Discharge Exam General- oriented x 2-3, not in distress, speaks in sentences with no effort or accessory muscle use Eyes- anicteric Neck- no JVD Lungs- clear breath sounds bilaterally, no rales/wheezes Heart- normal rate, regular rhythm; no murmurs Abdomen- normal bowel sounds, nondistended, soft, nontender Extremities- no pretibial edema, no calf tenderness Neuro- alert, oriented x 3; no gross focal neurologic deficits Skin- warm & dry Updated Medication List Medication Instructions Recorded Confirmed Type empagliflozin 25 mg tablet 0 mg PO DAILY 11/18/21 01/10/25 History bkhrtpoa-urhi-lhlr 8 mg-folic 400 1 tab PO DAILY 11/18/21 01/10/25 History mcg-K 50 mcg-lutein 300 mcg tablet (Centrum Silver Women) apixaban 5 mg tablet (Eliquis) 5 mg PO BID #60 tabs 11/22/21 01/10/25 Rx atorvastatin 80 mg tablet 80 mg PO DAILY 01/10/25 01/10/25 History dulaglutide 3 mg/0.5 mL 3 mg subcut WK 01/10/25 01/10/25 History subcutaneous pen injector (Trulicity) aspirin 81 mg tablet,delayed 81 mg PO DAILY #30 tabs 01/12/25 Rx release (Enteric Coated Aspirin) carvedilol 3.125 mg tablet 3.125 mg PO BID 30 days #60 tabs 01/12/25 Rx levetiracetam 750 mg tablet 750 mg PO BID 30 days #60 tabs 01/12/25 Rx (Keppra) Hospital Stay Data Consultations 01/10/25 15:23 ED Decision to Admit Stat 01/10/25 15:50 Consult Neurology Routine 01/11/25 07:53 Consult Cardiology Routine Diagnostic Imagining Performed Laboratory Results WBC 12.64 K/ul (4.8-10.8) H 01/11/25 06:41 RBC 4.68 M/uL (4.20-5.40) 01/11/25 06:41 Hgb 14.1 g/dl (12.0-16.0) 01/11/25 06:41 POC Hgb 13.9 g/dl (12.0-16.0) 01/10/25 14:37 Hct 41.2 % (37.0-47.0) 01/11/25 06:41 POC Hct 41 % (37-47) 01/10/25 14:37 MCV 88.0 fL (80.0-100.0) 01/11/25 06:41 MCH 30.1 pg (25.0-34.0) 01/11/25 06:41 MCHC 34.2 g/dL (32.0-36.0) 01/11/25 06:41 RDW Std Deviation 43.5 fL (36.4-46.3) 01/11/25 06:41 RDW Coeff of Dodie 13.5 % (11.5-14.5) 01/11/25 06:41 Plt Count 267 K/uL (130-400) 01/11/25 06:41 MPV 9.4 fL (9.4-12.4) 01/11/25 06:41 Immature Gran % (Auto) 0.4 % 01/11/25 06:41 Neut % (Auto) 77.2 % 01/11/25 06:41 Lymph % (Auto) 10.6 % 01/11/25 06:41 Bremer % (Auto) 10.0 % 01/11/25 06:41 Eos % (Auto) 1.3 % 01/11/25 06:41 Baso % (Auto) 0.5 % 01/11/25 06:41 Neut # (Auto) 9.77 K/uL (1.40-6.50) H 01/11/25 06:41 Lymph # (Auto) 1.34 K/uL (1.20-3.40) 01/11/25 06:41 Bremer # (Auto) 1.26 K/uL (0.11-0.59) H 01/11/25 06:41 Eos # (Auto) 0.16 K/uL (0.00-0.50) 01/11/25 06:41 Baso # (Auto) 0.06 K/uL (0.00-0.20) 01/11/25 06:41 Immature Gran # (Auto) 0.05 K/uL (0.01-0.20) 01/11/25 06:41 PT 10.3 Seconds (9.0-12.0) 01/10/25 14:12 INR 1.0 (0.9-1.1) 01/10/25 14:12 APTT 25 Seconds (21-31) 01/10/25 14:12 PTT Ratio 0.9 01/10/25 14:12 POC Sodium 138 mmol/L (135-144) 01/10/25 14:37 Sodium 139 mmol/L (136-145) 01/11/25 06:41 POC Potassium 3.8 mmol/L (3.3-5.0) 01/10/25 14:37 Potassium 3.9 mmol/L (3.5-5.1) 01/11/25 06:41 POC Chloride 100 mmol/L (101-112) L 01/10/25 14:37 Chloride 104 mmol/L (98-107) 01/11/25 06:41 Carbon Dioxide 28 mmol/L (21-32) 01/11/25 06:41 POC Total CO2 23 mmol/L (24-31) L 01/10/25 14:37 Anion Gap 7 (3-11) 01/11/25 06:41 POC Anion Gap 19.0 mmol/L (16-25) 01/10/25 14:37 POC BUN 15 mg/dl (7-18) 01/10/25 14:37 BUN 21 mg/dl (6-23) 01/11/25 06:41 Creatinine 1.19 mg/dl (0.6-1.2) 01/11/25 06:41 POC Creatinine 1.0 mg/dl (0.6-1.3) 01/10/25 14:37 Est Cr Clr Drug Dosing 41.2 ml/min 01/11/25 06:41 eGFR 47.09 01/11/25 06:41 BUN/Creatinine Ratio 17.6 (10-20) 01/11/25 06:41 Glucose 169 mg/dl (70-99(Fasting)) H 01/11/25 06:41 POC Glucose 230 mg/dl (70-99) H 01/12/25 11:19 POC Glucose (other) 245 mg/dl (70-99) H 01/10/25 14:37 Estimat Average Glucose 220 mg/dl 01/11/25 06:41 Hemoglobin A1c 9.3 % (4.5-5.6) H 01/11/25 06:41 Calcium 9.1 mg/dl (8.6-10.3) 01/11/25 06:41 POC Ioniz Calcium Segundo 1.14 mmol/l (1.12-1.32) 01/10/25 14:37 Phosphorus 4.0 mg/dl (2.5-4.9) 01/11/25 06:41 Magnesium 2.3 mg/dl (1.7-2.4) 01/11/25 06:41 Total Bilirubin 1.2 mg/dl (0.2-1.0) H 01/11/25 06:41 AST 12 U/L (13-39) L 01/11/25 06:41 ALT 9 U/L (7-52) 01/11/25 06:41 Alkaline Phosphatase 76 U/L (34-104) 01/11/25 06:41 Troponin I High Sens 175.4 pg/ml (0-14) H* D 01/11/25 06:41 Total Protein 6.1 gm/dl (6.0-8.3) 01/11/25 06:41 Albumin 3.3 gm/dl (3.4-5.0) L 01/11/25 06:41 Globulin 2.8 gm/dl (2.5-4.0) 01/11/25 06:41 Albumin/Globulin Ratio 1.2 (0.9-2) 01/11/25 06:41 Triglycerides 80 mg/dl (0-150) 01/11/25 06:41 Cholesterol 208 mg/dl (0-200) H 01/11/25 06:41 LDL Cholesterol, Calc 134 mg/dl 01/11/25 06:41 VLDL Cholesterol, Calc 16 mg/dl (0-30) 01/11/25 06:41 HDL Cholesterol 58 mg/dl 01/11/25 06:41 Cholesterol/HDL Ratio 3.6 (0-5) 01/11/25 06:41 TSH 0.858 uIu/ml (0.300-4.500) 01/11/25 06:41 Urine Opiates Screen Neg (Neg) 01/10/25 16:38 Ur Methadone, Qual Neg (Neg) 01/10/25 16:38 Urine Fentanyl Screen Neg (Neg) 01/10/25 16:38 Urine Barbiturates Neg (Neg) 01/10/25 16:38 Ur Phencyclidine (PCP) Neg (Neg) 01/10/25 16:38 U Amphetamin/Meth Scrn Neg (Neg) 01/10/25 16:38 MDMA (Ecstasy) Screen Neg (Neg) 01/10/25 16:38 U Benzodiazepines Scrn Neg (Neg) 01/10/25 16:38 Ur Cocaine Metabolite Neg (Neg) 01/10/25 16:38 U Marijuana (THC) Screen Neg (Neg) 01/10/25 16:38 Ethyl Alcohol mg/dL < 10.0 mg/dl (<10.0) 01/10/25 15:[address] 01/10/25 14:10 Exam: CT of the head without contrast. Exam reason: Neurodeficit. Comparison: No prior examinations available for comparison. Technique: Multiple sequential contiguous slices through the calvarium were obtained without contrast. Findings: There is Moderate generalized atrophy at the upper limits of expected for age. There is bilateral symmetric periventricular hypodensity. This is a nonspecific finding but most likely attributed to chronic microvascular ischemic change. Additionally, there is encephalomalacia noted in the left temporoparietal lobe. There is no evidence of acute intracranial hemorrhage, mass effect or midline shift. The orbits and orbital contents are unremarkable. No acute bony abnormalities are identified. Impression: 1. Atrophy and chronic microvascular ischemic changes without evidence of acute abnormality. Electronically signed by Masoud Velazquez 01-10-2025 2:50 PM Head CTA 01/10/25 14:10 Head CTA: Exam reason: Neurodeficit. Procedure: Axial pain sections CT scans were obtained through the head during a dynamic injection of intravenous contrast. Three-dimensional reconstructions were performed and displayed at multiple angles. Findings: The middle cerebral, anterior cerebral and posterior cerebral arteries are in normal position and location. There is no evidence of stenosis, occlusion or deviation of the major vessels. Impression: Normal head CT angiogram. Electronically signed by Masoud Velazquez 01-10-2025 3:01 PM Neck CTA 01/10/25 14:10 CTA neck: Exam reason: Neurodeficit. Comparison: No prior examinations available for comparison. Neck CTA procedure: Axial plane sections CT scans were obtained through the neck during a dynamic injection of intravenous contrast. Three-dimensional reconstructions were performed and displayed at multiple angles. Findings for the right side: Evaluation of the right proximal/mid/distal common carotid arteries demonstrates no hemodynamically significant occlusion. There is atherosclerotic calcification noted within the carotid bulb. This is causing less than 20% stenosis. The proximal/distal internal carotid artery is normal. There is no significant stenosis within the external carotid artery. There isnormal flow within the right vertebral artery. Findings for the left side: Evaluation of the left proximal/mid/distal common carotid arteries demonstrates no hemodynamically significant occlusion. The left carotid bulb is normal. There is atherosclerotic calcification noted in the proximal internal carotid artery. This is causing less than 20% stenosis. Impression: 1. There is less than 20% stenosis noted in the right common carotid artery and within the left proximal internal carotid artery. No significant flow-limiting stenosis is noted on either side. Electronically signed by Masoud Velazquez 01-10-2025 2:57 PM Pending Results Patient Have Any Pending Studies at Discharge: Yes Discharge Instructions Given to Patient (Per Discharging Provider) PLEASE REFER TO YOUR NEW MEDICATION LIST AND FOLLOW INSTRUCTIONS CAREFULLY. YOUR NEW MEDICATIONS INCLUDE: Keppra- medication for seizure disorder Carvedilol- medication for blood pressure control Aspirin-antiplatelet to prevent heart attack, always take with a full stomach to prevent stomach ulcers/gastritis You also need to have a heart monitor placed called Zio patch to detect an underlying irregular heartbeat. Your primary care physician can assist with arranging for this. Call 911 Immediately if with seizure recurrence. PLEASE CALL YOUR PRIMARY CARE PHYSICIAN OR RETURN TO THE ER IF WITH WORSENING OF SYMPTOMS, INCLUDING chest pain, shortness of breath, palpitations, dizziness, weakness, etc. FOLLOW UP WITH PRIMARY CARE PHYSICIAN in 1 week. Total Time Total Time Spent Total Time Spent (In Minutes): 50 minutes
--- NOTE | 2025-01-14 06:40 | Electroencephalogram ---
EEG Procedure Note Date of Service January 12, 2025 Start / End Times Start Time: 0604 End Time: [address] Wilson History A79 year old female with possible seizure. EEG performed for evaluation of epileptiform activity. Home Medication List Medication Instructions Recorded Confirmed Type empagliflozin 25 mg tablet 0 mg PO DAILY 11/18/21 01/10/25 History tbiorilj-rwbl-zqja 8 mg-folic 400 1 tab PO DAILY 11/18/21 01/10/25 History mcg-K 50 mcg-lutein 300 mcg tablet (Centrum Silver Women) apixaban 5 mg tablet (Eliquis) 5 mg PO BID #60 tabs 11/22/21 01/10/25 Rx atorvastatin 80 mg tablet 80 mg PO DAILY 01/10/25 01/10/25 History dulaglutide 3 mg/0.5 mL 3 mg subcut WK 01/10/25 01/10/25 History subcutaneous pen injector (Trulicity) aspirin 81 mg tablet,delayed 81 mg PO DAILY #30 tabs 01/12/25 Rx release (Enteric Coated Aspirin) aspirin 81 mg tablet,delayed 81 mg PO DAILY #30 tabs 01/12/25 Rx release (Enteric Coated Aspirin) carvedilol 3.125 mg tablet 3.125 mg PO BID 30 days #60 tabs 01/12/25 Rx levetiracetam 750 mg tablet 750 mg PO BID 30 days #60 tabs 01/12/25 Rx (Keppra) levetiracetam 750 mg tablet 750 mg PO BID 30 days #60 tabs 01/12/25 Rx (Keppra) Inpatient Medication List Discontinued Medications Apixaban (Apixaban 5 Mg Tablet) 5 mg PO BID [facility] Stop: 02/09/25 20:59 Last Admin: 01/12/25 08:38 Dose: 5 mg Documented By: Admin: 01/11/25 20:56 Dose: 5 mg Documented By: Admin: 01/11/25 08:11 Dose: 5 mg Documented By: Admin: 01/10/25 20:21 Dose: 5 mg Documented By: LUIZ Atorvastatin Calcium (Atorvastatin 40 Mg Tab) 80 mg PO DAILY SANDR[facility] Stop: 02/10/25 08:59 Last Admin: 01/12/25 08:38 Dose: 80 mg Documented By: Admin: 01/11/25 08:11 Dose: 80 mg Documented By: ALMA Empagliflozin (Empagliflozin 25 Mg Tab) 25 mg PO DAILY [facility] Stop: 02/10/25 08:59 Last Admin: 01/12/25 08:38 Dose: 25 mg Documented By: Admin: 01/11/25 08:09 Dose: 25 mg Documented By: ALMA Hydralazine HCl (Hydralazine Hcl 20 Mg/Ml Vial) 10 mg IV NOW STA Stop: 01/10/25 16:13 Last Admin: 01/10/25 16:31 Dose: 10 mg Documented By: BLOSSOM Magnesium Sulfate/Dextrose (Magnesium Sulfate / D5w) 1 gm in 100 mls @ 50 mls/hr IV Q2H SANDRA Stop: 01/10/25 20:14 Last Infusion: 01/10/25 20:16 Dose: Infused Documented By: Admin: 01/10/25 18:20 Dose: 50 mls/hr Documented By: Infusion: 01/10/25 18:20 Dose: Infused Documented By: Admin: 01/10/25 16:34 Dose: 50 mls/hr Documented By: BLOSSOM Insulin Aspart (Insulin Aspart Per Unit Charge) 0 units SC ACHS SANDRA Stop: 02/09/25 16:29 Last Admin: 01/12/25 13:06 Dose: 7 units Documented By: HALINA Co-signed By: PATRICE Admin: 01/12/25 08:37 Dose: 3 units Documented By: HALINA Co-signed By: ASHELY Admin: 01/11/25 20:56 Dose: 2 units Documented By: LUIZ Co-signed By: GDH Admin: 01/11/25 16:41 Dose: 2 units Documented By: ALMA Co-signed By: PATRICE Admin: 01/11/25 11:55 Dose: 2 units Documented By: OCorinne Co-signed By: BRADEN Admin: 01/11/25 08:09 Dose: 3 units Documented By: ALMA Co-signed By: OS Admin: 01/10/25 20:29 Dose: 8 units Documented By: LUIZ Co-signed By: [id number] Admin: 01/10/25 18:34 Dose: 13 units Documented By: ALMA Co-signed By: BRADEN Ioversol (Optiray 320 125ml) 112 ml IV ONCE ONE Stop: 01/10/25 14:21 Last Admin: 01/10/25 14:20 Dose: 112 ml Documented By: VIANEY Labetalol HCl (Labetalol Hcl Iv 5 Mg/Ml 20ml) 10 mg IV NOW STA Stop: 01/10/25 14:30 Last Admin: 01/10/25 14:40 Dose: 10 mg Documented By: ROLANDA Levetiracetam (Levetiracetam 500 Mg/5 Ml Vial) 1,000 mg IV NOW STA Stop: 01/10/25 14:28 Last Admin: 01/10/25 14:40 Dose: 1,000 mg Documented By: ROLANDA Levetiracetam (Levetiracetam Oral Soln 100mg/Ml) 750 mg PO BID [facility] Stop: 02/09/25 20:59 Last Admin: 01/12/25 09:25 Dose: 750 mg Documented By: Admin: 01/11/25 20:56 Dose: 750 mg Documented By: [facility] [place] Admin: 01/11/25 09:10 Dose: 750 mg Documented By: Admin: 01/10/25 20:44 Dose: 750 mg Documented By: LUIZ Metoprolol Tartrate (Metoprolol Tartrate 25 Mg Tab) 25 mg PO BID SANDRA Stop: 02/09/25 20:59 Last Admin: 01/11/25 08:10 Dose: 25 mg Documented By: Admin: 01/10/25 20:21 Dose: 25 mg Documented By: LUIZ Metoprolol Tartrate (Metoprolol Tartrate 25 Mg Tab) 25 mg PO NOW STA Stop: 01/10/25 15:52 Last Admin: 01/10/25 16:02 Dose: 25 mg Documented By: BLOSSOM Miscellaneous (Trulicity 3mg--Order Awaiting Action) 1 each N/A QS SANDRA Stop: 02/10/25 00:00 Last Admin: 01/12/25 08:39 Dose: Not Given Documented By: Admin: 01/11/25 23:40 Dose: Not Given Documented By: [facility] [place] Admin: 01/11/25 14:09 Dose: Not Given Documented By: Admin: 01/11/25 08:12 Dose: Not Given Documented By: Admin: 01/10/25 23:21 Dose: Not Given Documented By: LUIZ Multivitamins/Minerals (Cerovite Adv Formula Tab) 1 tab PO DAILY SANDRA Stop: 02/10/25 08:59 Last Admin: 01/12/25 08:38 Dose: 1 tab Documented By: Admin: 01/11/25 08:10 Dose: 1 tab Documented By: ALMA Description This is a 21 electrode EEG with a single channel dedicated to limited EKG. The electrodes were placed in accordance with the International 10-20 system. REPORT: At the onset of the EEG, the patient is awake. The background activity consist of 10 Hz, persistent, posteriorly dominant, moderate amplitude, symmetric and rhythmic activity that is reactive to eye opening. Anteriorly, it consist of a mixture of low voltage indeterminate activity and 15-25 Hz, per sistent, low amplitude, symmetric and rhythmic activity. Stepwise intermittent photic stimulation (1-21 Hz) does not induce any abnormalities. Drowsiness is characterized by low amplitude mixed frequency activity, roving eye movements, and decreased eye blinking and muscle artifact. Interpretation IMPRESSION: This is a normal awake and drowsy routine EEG. There is no evidence of focal slowing or epileptiform activity.
== END 2025-01-12 14:09 | disposition home or self-care (01) | DRG 57 ==
LOC: ED 14:10 → SUATTDRO 15:53 → 2E 15:53